=== PATIENT | female | born 1970 | race Caucasian/White ===

== ENCOUNTER 2025-01-19 07:18 | Emergency (ER) | payer MEDICAID, SELFPAY ==
[2025-01-19 07:19] VITALS: BP 144/72; PULSE 76; RESP 16; TEMP 36.6; O2SAT 100; BMI 43.2
--- NOTE | 2025-01-19 08:48 | EDS_ITS ---
HPI History of Present Illness Chief Complaint: Upper Extremity Injury Narrative Narrative: Patient is a 54-year-old female with past medical history of depression, hypothyroidism who presents to the emergency department the chief complaint of right wrist pain. States that she had an injury about 6 weeks ago after she moved into a new house and noted that there were new sliding glass doors placed and she states that she had been trying to open them up and noted that she injured her wrist. She states that she followed with her PCP who ordered an x- ray and did not show acute findings. She states that yesterday she noted that she had a vein bubbled up around this area in her wrist below her thumb and was concerned that this was a blood clot. States that when she woke up this was gone and was concerned that it may have burst. Patient states that she has been trying to wrap her wrist and this has not helped. States that she has been also more anxious than normal as she recently lost her mother. Patient denies any history of blood clots. [facility] Medical History delivery delivered Hysterectomy planned Depression Hypothyroidism Allergy/AdvReac Type Severity Reaction Status Date / Time No Known Allergies Allergy Verified 01/19/25 07:19 Surgical History Total knee replacement status Social History Smoking Status: Never smoker ROS ROS ED ROS Narrative Constitutional: Denies fevers, chills Neurological: Denies any numbness, weakness, tingling Musculoskeletal: Complains of right wrist pain as noted above Skin: Denies any rashes or lesions EXAM Physical Exam Narrative Exam Narrative: General: Patient lying in bed rest comfortably did not appear to be in acute distress Head: Atraumatic, normocephalic Eyes: PERRL bilaterally, EOMI black no conjunctival injection noted Neck: Soft, supple, trachea midline Cardiovascular: Regular rate and rhythm Musculoskeletal: Positive Sima's test on the right Extremities: +5/5 strength noted in the bilateral upper and lower extremities, radial pulse +2/4 in the bilateral extremities, no pedal edema no exam Neurological: Patient following commands and that she was at [facility] year is 2025. Sensation gross intact in the median, ulnar and radial nerve distribution bilaterally Skin: Warm, dry, intact no rashes or lesions noted Const Vital Signs: 01/19/25 07:19 Temperature 97.9 F Temperature Source Temporal Pulse Rate 76 Respiratory Rate 16 Blood Pressure 144/72 H Blood Pressure Mean 96 Pulse Ox 100 Oxygen Delivery Method Room Air MDM MDM MDM Narrative Medical decision making narrative: Patient is a 54-year-old female who presented to the emergency department the chief complaint of right wrist pain. On the differential diagnose includes but not limited to to de Quervain tenosynovitis, wrist sprain. I discussed with her that there is low risk that she has a blood clot in this area as she has no history and her pain is reproducible with Sima test. Advised her that we will place her in thumb spica splint and she should use NSAIDs for pain control. She was encouraged that this should improve over the next week or so. She was advised to follow-up with orthopedic team in the outpatient setting which she was referred to. She was also advised to follow-up with her primary care physician in the outpatient setting. She is agreeable this plan all question concerns answered she was discharged home in stable condition Discharge Plan Triage Chief Complaint: Upper Extremity Injury ED Provider: Levy Allen Dx/Rx/DC Orders Clinical Impression: De Quervain's disease (tenosynovitis) Primary Care Provider: Shirley Keen Referrals: Shirley Keen, [employer] [Primary Care Provider] - Wellington Fuentes MD [Med Staff - Active Staff] - Activity Restrictions/Additional Instructions: Wear thumb spica splint as discussed you can remove this for showering. You should use ice or heat in this area as well whichever makes this feel better. Take NSAIDs for pain control such as ibuprofen, Aleve, Advil etc. max dose of ibuprofen and 24 hours is 3200 mg. Follow-up with orthopedic team the outpatient setting as well as your primary care physician return with worsening symptoms or any other concerns Print Language: Welsh Disposition Disposition: Home, Self Care
--- OUTSIDE RECORDS SUMMARY | 2025-01-20 03:45 | XMS RPT_ITS | CCD ---
Author Organization [facility] Care Team Providers Care Wreath Inspector Name Role Phone MERCEDES ROSALES Unavailable Unavail able MERCEDES ROSALES Unavailable Unavail able CARISSIMI, NICHOLAS Primary Care Unavailable SPIRTOSMIRIAM Referring Unavailable CARISSIMI, NICHOLAS Primary Care Unavailable SPIRTOSMIRIAM Referring Unavailable CARISSIMI, NICHOLAS Primary Care Unavailable SPIRTOSMIRIAM M Referring Unavailable SPIRTOSMIRIAM Referring Unavailable CARISSIMI, NICHOLAS Primary Care Unavailable CARISSIMI, NICHOLAS Primary Care Unavailable SPIRTOSMIRIAM Referring Unavailable SPIRTOSMIRIAM Referring Unavailable CARISSIMI, NICHOLAS Primary Care Unavailable CARISSIMI, NICHOLAS Primary Care Unavailable SPIRTOSMIRIAM M Referring Unavailable CARISSIMI, NICHOLAS Primary Care Unavailable SPIRTOSMIRIAM M Referring Unavailable SPIRTOSMIRIAM M Referring Unavailable CARISSIMI, NICHOLAS Primary Care Unavailable CARISSIMI, NICHOLAS Primary Care Unavailable SPIRTOS, MIRIAM M Referring Unavailable SPIRTOSMIRIAM M Referring Unavailable CARISSIMI, NICHOLAS Primary Care Unavailable CARISSIMI, NICHOLAS Primary Care Unavailable SPIRTOSMIRIAM M Referring Unavailable CARISSIMI, NICHOLAS Primary Care Unavailable SPIRTOSMIRIAM M Referring Unavailable CARISSIMI, NICHOLAS Primary Care Unavailable SPIRTOSMIRIAM M Referring Unavailable CARISSIMI, NICHOLAS Primary Care Unavailable SPIRTOSMIRIAM M Referring Unavailable CARISSIMI, NICHOLAS Primary Care Unavailable SPIRTOS, MIRIAM M Referring Unavailable CARISSIMI, NICHOLAS Primary Care Unavailable SPIRTOS, MIRIAM M Referring Unavailable CARISSIMI, NICHOLAS Primary Care Unavailable SPIRTOSMIRIAM Referring Unavailable CARISSIMI, NICHOLAS Primary Care Unavailable SPIRTOSMIRIAM Referring Unavailable CARISSIMI, NICHOLAS Primary Care Unavailable SPIRTOS, MIRIAM M Referring Unavailable CARISSIMI, NICHOLAS Primary Care Unavailable SPIRTOS, MIRIAM M Referring Unavailable SPIRTOS, MIRIAM M Referring Unavailable CARISSIMI, NICHOLAS Primary Care Unavailable CARISSIMI, NICHOLAS Primary Care Unavailable CARISSIMI, NICHOLAS Primary Care Unavailable SPIRTOS, MIRIAM M Referring Unavailable CARISSIMI, NICHOLAS Primary Care Unavailable CARISSIMI, NICHOLAS Primary Care Unavailable SPIRTOS, MIRIAM M Referring Unavailable CARISSIMI, NICHOLAS Primary Care Unavailable SPIRTOS, MIRIAM M Referring Unavailable CARISSIMI, NICHOLAS Primary Care Unavailable MARY HERRERA Attending Unavailable STEPHAN ALMANZAR Attending Unavailable [facility], PHYSICIAN Attending Unavailable Swihart ANKIT, Ck Primary Care Provider EVELYN HERNANDEZ Attending Unavailable EVELYN HERNANDEZ Referring Unavailable SWIHART, CK L Primary Care Unavailable Swihart LOCKER ROOM CLERK-CLOTHING DESIGNER, Ck L Primary Care Provider SWIHART, CK L Referring Unavailable SWIHART, CK L Primary Care Unavailable SWIHART, CK L Referring Unavailable SWIHART, CK L Primary Care Unavailable SWIHART, CK L Referring Unavailable SWIHART, CK L Primary Care Unavailable SWIHART, CK L Referring Unavailable SWIHART, CK L Primary Care Unavailable SWIHART, CK L Referring Unavailable SWIHART, CK L Primary Care Unavailable SWIHART, CK L Referring Unavailable SWIHART, CK L Primary Care Unavailable González HAMMOND, Kristi Cosme Unavailable Unavailab le SYSTEM, PROVIDER NOT IN Referring Unavaila ble SWIHART, CK Primary Care Unavailable SYSTEM, PROVIDER NOT IN Attending Unavaila ble SYSTEM, PROVIDER NOT IN Referring Unavaila ble SYSTEM, PROVIDER NOT IN Attending Unavaila ble SWIHART, CK Primary Care Unavailable SYSTEM, PROVIDER NOT IN Referring Unavaila ble SYSTEM, PROVIDER NOT IN Attending Unavaila ble SWIHART, CK Primary Care Unavailable SYSTEM, PROVIDER NOT IN Attending Unavaila ble SWIHART, CK Primary Care Unavailable SYSTEM, PROVIDER NOT IN Referring Unavaila ble SWIHART, CK Primary Care Unavailable NANCY FLEMING Attending Unavailab le KRISTOPHERNANCY Referring Unavailab le SWIHART, CK Primary Care Unavailable SWIHART, CK Referring Unavailable PHYSICIANS, [facility] Attending Unavailable SWIHART, CK Primary Care Unavailable KRISTOPHER, NANCY CARLIN Attending Unavailab le KRISTOPHER, NANCY CARLIN Referring Unavailab le SWIHART, CK Primary Care Unavailable KRISTOPHER, NANCY CARLIN Attending Unavailab le KRISTOPHER, NANCY CARLIN Referring Unavailab le BEN, MOLLY SUE Attending Unavail able SWIHART, CK Primary Care Unavailable BEN, MOLLY SUE Admitting Unavail able SWIHART, CK ADRI Primary Care Unavailable ANGUS CHARLES Attending Unavailab le SWIHART, CK ADRI Primary Care Unavailable VONNIE FLORES Attending Unavailable KRISTOPHER, NANCY CARLIN Attending Unavailab le SWIHART, CK RUSH Referring Unavailable SWIHART, CK ADRI Primary Care Unavailable VONNIE FLORES Attending Unavailable SWIHART, CKWADE RUSH Primary Care Unavailable SWIHART, CK ADRI Primary Care Unavailable VONNIE FLORES Attending Unavailable SWIHART, CK ADRI Primary Care Unavailable VONNIE FLORES Attending Unavailable OBINNA NELSON Attending Unavailab le SWIHART, CK ADRI Primary Care Unavailable SWIHART, CK ADRI Referring Unavailable VONNIE FLORES Attending Unavailable SWIHART, CK ADRI Primary Care Unavailable SWIHART, CK ADRI Referring Unavailable SWIHART, CK ADRI Referring Unavailable SWIHART, CK RUSH Attending Unavailable SWIHART, CK ADRI Primary Care Unavailable Allergies Allergy Classification Reported Allergen(s) Allergy Type Date of Onset Reaction(s) Facility (12 sources) diclofenac; Translations: [DICLOFENAC] Drug Allergy 7 Other (See Comments) [facility] Other [place] Repository (10 sources) Diclofenac; Translations: [DICLOFENAC SODIUM] Drug Allergy 4 [facility] 3 Repository Medications Current Medications Medication Drug Class(es) Dates Sig (Normalized) Sig (Original) bisacodyl 5 mg delayed release oral tablet (1 source) Stimulant Laxative Start: 12-29-2023 bisacodyL (DULCOLAX) 5 mg EC tablet Take 4 tablets 8PM the evening before your colonoscopy . 4 tablet 0 12/29/2023 Active 24 hr buPROPion hydrochloride 150 mg extended release oral tablet (14 sources) Aminoketone Start: 01-09-2024 End: 01-08-2025 take 1 tablet by mouth once daily buPROPion (WELLBUTRIN XL) 150 MG 24 hr tablet Indications: Anxiety Take 1 (one) tablet (150 mg total) by mouth daily . 90 tablet 03/03/2024 Active Start: 12-24-2023 take 1 tablet by hermleinda th once daily in the morning buPROPion (WELLBUTRIN XL) 300 MG 24 hr tablet Take 1 (one) tablet (300 mg total) by mouth every morning . 30 tablet 1 12/24/2023 Active cariprazine 1.5 mg oral capsule (14 sources) Atypical Antipsychotic Start: 12-09-2023 take 1 capsule by mouth once daily cariprazine (Vraylar) 1.5 mg capsule Take 1 capsule (1.5 mg) by mouth once daily. 12/09/2023 Active cholecalciferol 0.05 mg oral capsule (14 sources) Vitamin D take 1 capsule by mouth once daily cholecalciferol, vitamin D3, (Vitamin D3) 50 mcg (2,000 unit) cap Take 1 (one) capsule by mouth daily . Active DULoxetine 30 mg delayed release oral capsule (6 sources) Serotonin and Norepinephrine Reuptake Inhibitor Start: 03-11-2024 take 1 capsule by mouth once daily DULoxetine (CYMBALTA) 30 MG capsule Take 1 (one) capsule (30 mg total) by mouth daily . 03/11/2024 Active levothyroxine sodium 0.125 mg oral tablet (14 sources) l-Thyroxine Start: 01-09-2024 take 1 tablet by mouth once daily levothyroxine (SYNTHROID, LEVOTHROID) 125 MCG tablet Indications: Hypothyroidism, unspecified type Take 1 (one) tablet (125 mcg total) by mouth daily . 90 tablet 06/07/2024 Active Start: 12-05-2023 take 1 tablet by hermelinda th once daily levothyroxine (SYNTHROID, LEVOTHROID) 125 MCG tablet Take 1 (one) tablet (125 mcg total) by mouth daily . 30 tablet 0 12/05/2023 Active lisdexamfetamine dimesylate 30 mg oral capsule (6 sources) Central Nervous System Stimulant lisdexamfetamine (VYVANSE) 30 MG capsule Take 40 mg by mouth every morning Patient reports 40 mg QD . Active polyethylene glycol 3350 329109 mg / potassium chloride 2970 mg / sodium bicarbonate 6740 mg / sodium chloride 5860 mg / sodium sulfate 05944 mg powder for oral solution (1 source) Osmotic Laxative Start: End: polyethylene glycol (GoLYTELY) 236-22.74-6.74 -5.86 gram solution Take 4,000 mL by mouth once for 1 dose . 4000 mL 0 12/29/2023 12/29/2023 Active topiramate 25 mg oral tablet (14 sources) Start: take 2 tablets by mouth once daily topiramate (TOPAMAX) 25 MG tablet Take 2 (two) tablets (50 mg total) by mouth daily . 06/05/2024 Active Start: 12-24-2023 take 1 tablet by hermelinda th twice daily topiramate (TOPAMAX) 100 MG tablet Take 1 (one) tablet (100 mg total) by mouth 2 (two) times a day . 60 tablet 1 12/24/2023 Active take 1 tablet by hermelinda th once daily topiramate (Topamax) 50 mg tablet Take 1 tablet (50 mg) by mouth once daily. Active UNABLE TO FIND (7 sources) take 3 capsules by m outh once daily UNABLE TO FIND Take 3 capsules by mouth daily Med Name: Intestinal Formula #1 . Active take 3 capsules by mouth once da eugenia UNABLE TO FIND Take 3 capsules by mouth daily Med Name: Intestinal Formula #1 . 0 Active Completed/Discontinued Medications Medication Drug Class(es) Dates Sig (Normalized) Sig (Original) nystatin [id number] unt/ml topical cream (1 source) Polyene Antifungal Start: 12-05-2023 End: 12-29-2023 nystatin (MYCOSTATIN) cream Indications: Candidiasis of breast Apply topically 2 (two) times a day . 30 g 0 12/05/2023 12/29/2023 Discontinued (Patient's Request) phentermine hydrochloride 37.5 mg oral tablet (1 source) Sympathomimetic Amine Anorectic Start: 09-12-2023 End: 12-29-2023 take 1 tablet by mouth once daily phentermine (ADIPEX-P) 37.5 mg tablet Take 1 (one) tablet (37.5 mg total) by mouth daily . 0 09/12/2023 12/29/2023 Discontinued (Patient's Request) Problems Active Problems Problem Classification Problem Date Documented Date Episodic/Chronic Abdominal pain (1 source) Pelvic and perineal pain; Translations: [Pelvic and perineal pain] Onset: 03-17-2018 Other connective tissue disease (2 sources) Pain in right forearm; Translations: [Pain in right forearm] Onset: 12-21-2024 Episodic Other ear and sense organ disorders (3 sources) Asymmetrical sensorineural hearing loss; Translations: [Sensorineural hearing loss, bilateral] 06-18-2024 Chronic Other ear and sense organ disorders (2 sources) Sensorineural hearing loss, bilateral; Translations: [Sensorineural hearing loss, bilateral] Onset: 06-18-2024 Chronic Residual codes; unclassified (2 sources) Other hypersomnia; Translations: [Other hypersomnia] Onset: 01-30-2024 Chronic Residual codes; unclassified (2 sources) Hypersomnia, unspecified; Translations: [Hypersomnia, unspecified] Onset: 01-30-2024 Chronic Residual codes; unclassified (1 source) Hypersomnia; Translations: [Hypersomnia, unspecified] 01-30-2024 Chronic Residual codes; unclassified (1 source) Daytime somnolence; Translations: [Other hypersomnia] 01-30-2024 Chronic Thyroid disorders (7 sources) Hypothyroidism; Translations: [Hypothyroidism, unspecified] Onset: 11-21-2023 11-21-2023 Chronic Unclassified (2 sources) New Patient Onset: 04-27-2024 Past or Other Problems Problem Classification Problem Date Documented Da te Episodic/Chronic Nonmalignant breast conditions (17 sources) Lump in lower inner quadrant of right breast; Translations: [Unspecified lump in the right breast, lower inner quadrant] Onset: 07-02-2024 07-02-2024 Episodic Other ear and sense organ disorders (2 sources) Tinnitus, bilateral; Translations: [Tinnitus, bilateral] Onset: 04-16-2024 Episodic Other gastrointestinal disorders (8 sources) Chronic constipation; Translations: [Other constipation] Onset: 12-29-2023 12-29-2023 Episodic Other gastrointestinal disorders (4 sources) Other constipation; Translations: [Other constipation] Onset: 12-29-2023 Episodic Other screening for suspected conditions (not mental disorders or infectious disease) (13 sources) Patient encounter status; Translations: [Encounter for screening for malignant neoplasm of colon] Onset: 12-29-2023 12-29-2023 Episodic Residual codes; unclassified (8 sources) Family history of cancer of colon; Translations: [Family history of malignant neoplasm of digestive organs] Onset: 12-29-2023 12-29-2023 Episodic Residual codes; unclassified (4 sources) Family history of malignant neoplasm of digestive organs; Translations: [Family history of malignant neoplasm of digestive organs] Onset: 12-29-2023 Episodic Unclassified (1 source) SCREENING Onset: 12-23-2022 Results Test Name Value Interpretation Reference Range Facility XR FOREARM RIGHT 2 VIEWSon 0 12-21-2024 XR FOREARM RIGHT 2 VIEWS EXAMINATION: XR FOREARM RIGHT 2 VIEWS 12/21/2024 11:29 AM HISTORY: ORDERING SYSTEM PROVIDED HISTORY: Right arm pain, TECHNOLOGIST PROVIDED HISTORY: Illness/Other Reason for Exam: Pain in radial aspect of the arm and wrist after opening a window 2 weeks ago has continued pain and discomfort Cancer History: N Surgery, Radiation History: N Encounter Type: Initial Additional Signs and Symptoms: NA ORDERING SYSTEM PROVIDED DIAGNOSIS CODES: M79.631 Right forearm pain COMPARISON: None. FINDINGS: Two views of the right forearm were obtained. No acute fracture or malalignment. Joint spaces are maintained. The cortical surface smooth in contour. Soft tissues are unremarkable. IMPRESSION: No acute abnormality in the right forearm. SLM/lab Workstation ID: [id number] Dictated by: MARY CASH on FriDec 23, 2024 9:30:31 AM EDT Transcribed by: NANCY ACKERMAN on FriDec 23, 2024 9:30:31 AM EDT Finalized by: MARY CASH on FriDec 23, 2024 11:06:03 AM EDT [facility] Comment on above: Order Comment: Injur y/Trauma or Illness?:Illness/Other How long have you had these symptoms (acute/chronic)?:Acute Reason for exam?:pain in radial aspect of the arm and wrist after opening a window 2 weeks ago has continued pain and discomfort History of cancer?:n Surgeries, chemotherapy, or radiation?:n Type of Exam?:Initial Additional signs and symptoms?:na MM FOLLOW UP POST CLIP PLACE Judith 07-21-2024 MM FOLLOW UP POST CLIP PLACEMENT EXAMINATION: US BREAST BIOPSY RIGHT; US AXILLA ONLY RIGHT (BREAST RELATED); MM FOLLOW UP POST CLIP PLACEMENT INDICATION: Dx: N63.41 (Subareolar mass of right breast) 54-year-old female presents for ultrasound-guided biopsy of right breast findings. COMPARISON: Recent mammogram June 2024. Prior mammograms February 2024, 2022, 2017, 2016, and 2015. TECHNIQUE AND FINDINGS: Review of prior mammograms demonstrates long-term mammographic stability of the palpable mass in the right breast 6 o'clock axis retroareolar region favoring benign etiology. Ultrasound of the right axilla was performed. No evidence of right axillary lymphadenopathy. The mass in the right breast 6 o'clock axis retroareolar was identified for biopsy measuring 2.2 x 1.6 x 2.4 cm. The mammographic findings were discussed with the patient who would like to proceed for tissue confirmation. Following the explanation of the risks, benefits and alternatives of the procedure to the patient, informed consent was obtained. Time out was performed. The patient was placed on the ultrasound table and the lesion of concern in the right breast retroareolar region at 6 o'clock was redemonstrated and an appropriate approach selected. The area was prepped and draped in the usual sterile fashion. Under sterile technique, the area was anesthetized and a small incision was made in the skin. Under ultrasound guidance a 14 gauge biopsy needle was introduced and advanced to the target lesion. Then, 3 cores were obtained under ultrasound guidance with confirmation of accurate targeting showing the biopsy needle through the lesion. The biopsy needle was retrieved and a T3 biopsy marker was placed at the biopsy site. Compression was applied to the area and Steri-strips used for the skin incision. No complications occurred. Postprocedure mammogram for marker placement evaluation shows a T3 hydromark shaped biopsy marker at the biopsy bed within the mass. IMPRESSION: 1. Technically successful ultrasound guided core needle biopsy of the right breast. Awaiting pathology results. 2. No right axillary lymphadenopathy. An addendum will be placed when the pathology results are available. The patient will follow-up with her physician with the results. Post-Procedure Mammogram for Marker Placement OVERALL ASSESSMENT - POST-PROCEDURE MAMMOGRAM FOR MARKER PLACEMENT Workstation ID: [id number] Addended: FriJul 23, 2024 3:42 PM by Elio Lopez MD ADDENDUM: Pathology: A. Breast, Right, 6 o'clock, ultrasound-guided biopsy: Breast parenchyma with stromal hyalinization. See comment. No evidence of malignancy. The pathology is benign and concordant with breast imaging findings. There is long-term mammographic stability of this mass compared to prior mammograms. Workstation ID: [id number] Dictated by: ELIO LOPEZ on FriJul 21, 2024 2:15:57 PM EST Transcribed by: ELIO LOPEZ on FriJul 21, 2024 2:15:57 PM EST Finalized by: ELIO LOPEZ on FriJul 21, 2024 2:15:57 PM EST Normal [facility] TISSUE EXAMon 07-21-2024 TISSUE EXAM Surgical Pathology R eport Case: [id number] Authorizing Provider: Nancy Fleming MD Collected: 07/21/2024 11:17 AM Ordering Location: [facility] Received: 07/21/2024 11:55 AM Ultrasound Pathologist: Rosie Bravo MD Specimen: Breast, Right, Right breast biopsy retroareolar 6:00; 2.0 x 2.4 x 1.7 cm; birads 4 A. Breast, Right, 6 o'clock, ultrasound-guided biopsy: Breast parenchyma with stromal hyalinization. See comment. No evidence of malignancy. A [place] red stain shows no evidence of amyloid deposition. N63.41 - Subareolar mass of right breast [ICD-10-CM] R92.8 - Abnormal mammogram [ICD-10-CM], Right breast biopsy retroareolar 6:00; 2.0 x 2.4 x 1.7 cm; birads 4 A. Received in formalin, designated breast, right-right breast biopsy retroareolar 6:00; 2.0 x 2.4 x 1.7 cm, are 4 cores of tissue measuring 1 x 0.4 x 0.2 cm in aggregate. Totally submitted in cassette. Specimen collection time: 11:17 am, 07/21/2024 Time placed in 10% neutral buffered formalin: 11:17 am, 07/21/2024 Time removed from formalin: 09:50 pm (long run), 07/21/2024 JK/IT/LM Gross examination performed at: [facility] - [address] [place] [address] Microscopic examination is performed. Normal [facility] Comment on above: Performed By: #### [id number] #### LAB [address] [place] [address] Adriano Ocampo M.D. [id number] US AXILLA ONLY RIGHT (BREAST RELATED)on 07-21-2024 US AXILLA ONLY RIGHT (BREAST RELATED) EXAMINATION: US BREAST BIOPSY RIGHT; US AXILLA ONLY RIGHT (BREAST RELATED); MM FOLLOW UP POST CLIP PLACEMENT INDICATION: Dx: N63.41 (Subareolar mass of right breast) 54-year-old female presents for ultrasound-guided biopsy of right breast findings. COMPARISON: Recent mammogram June 2024. Prior mammograms February 2024, 2022, 2017, 2016, and 2015. TECHNIQUE AND FINDINGS: Review of prior mammograms demonstrates long-term mammographic stability of the palpable mass in the right breast 6 o'clock axis retroareolar region favoring benign etiology. Ultrasound of the right axilla was performed. No evidence of right axillary lymphadenopathy. The mass in the right breast 6 o'clock axis retroareolar was identified for biopsy measuring 2.2 x 1.6 x 2.4 cm. The mammographic findings were discussed with the patient who would like to proceed for tissue confirmation. Following the explanation of the risks, benefits and alternatives of the procedure to the patient, informed consent was obtained. Time out was performed. The patient was placed on the ultrasound table and the lesion of concern in the right breast retroareolar region at 6 o'clock was redemonstrated and an appropriate approach selected. The area was prepped and draped in the usual sterile fashion. Under sterile technique, the area was anesthetized and a small incision was made in the skin. Under ultrasound guidance a 14 gauge biopsy needle was introduced and advanced to the target lesion. Then, 3 cores were obtained under ultrasound guidance with confirmation of accurate targeting showing the biopsy needle through the lesion. The biopsy needle was retrieved and a T3 biopsy marker was placed at the biopsy site. Compression was applied to the area and Steri-strips used for the skin incision. No complications occurred. Postprocedure mammogram for marker placement evaluation shows a T3 hydromark shaped biopsy marker at the biopsy bed within the mass. IMPRESSION: 1. Technically successful ultrasound guided core needle biopsy of the right breast. Awaiting pathology results. 2. No right axillary lymphadenopathy. An addendum will be placed when the pathology results are available. The patient will follow-up with her physician with the results. Post-Procedure Mammogram for Marker Placement OVERALL ASSESSMENT - POST-PROCEDURE MAMMOGRAM FOR MARKER PLACEMENT Workstation ID: [id number] Addended: FriJul 23, 2024 3:42 PM by Elio Lopez MD ADDENDUM: Pathology: A. Breast, Right, 6 o'clock, ultrasound-guided biopsy: Breast parenchyma with stromal hyalinization. See comment. No evidence of malignancy. The pathology is benign and concordant with breast imaging findings. There is long-term mammographic stability of this mass compared to prior mammograms. Workstation ID: [id number] Dictated by: ELIO LOPEZ on FriJul 21, 2024 2:15:57 PM EST Transcribed by: ELIO LOPEZ on FriJul 21, 2024 2:15:57 PM EST Finalized by: ELIO LOPEZ on FriJul 21, 2024 2:15:57 PM EST Normal [facility] Comment on above: Order Comment: Injur y/Trauma or Illness?:Illness/Other How long have you had these symptoms (acute/chronic)?:Acute Reason for exam?:Right breast biopsy and axillary survey Type of Exam?:Subsequent/Follow-up Additional signs and symptoms?:None US BREAST BIOPSY RIGHTon US BREAST BIOPSY RIGHT EXAMINATION: US BREAST BIOPSY RIGHT; US AXILLA ONLY RIGHT (BREAST RELATED); MM FOLLOW UP POST CLIP PLACEMENT INDICATION: Dx: N63.41 (Subareolar mass of right breast) 54-year-old female presents for ultrasound-guided biopsy of right breast findings. COMPARISON: Recent mammogram June 2024. Prior mammograms February 2024, 2022, 2017, 2016, and 2015. TECHNIQUE AND FINDINGS: Review of prior mammograms demonstrates long-term mammographic stability of the palpable mass in the right breast 6 o'clock axis retroareolar region favoring benign etiology. Ultrasound of the right axilla was performed. No evidence of right axillary lymphadenopathy. The mass in the right breast 6 o'clock axis retroareolar was identified for biopsy measuring 2.2 x 1.6 x 2.4 cm. The mammographic findings were discussed with the patient who would like to proceed for tissue confirmation. Following the explanation of the risks, benefits and alternatives of the procedure to the patient, informed consent was obtained. Time out was performed. The patient was placed on the ultrasound table and the lesion of concern in the right breast retroareolar region at 6 o'clock was redemonstrated and an appropriate approach selected. The area was prepped and draped in the usual sterile fashion. Under sterile technique, the area was anesthetized and a small incision was made in the skin. Under ultrasound guidance a 14 gauge biopsy needle was introduced and advanced to the target lesion. Then, 3 cores were obtained under ultrasound guidance with confirmation of accurate targeting showing the biopsy needle through the lesion. The biopsy needle was retrieved and a T3 biopsy marker was placed at the biopsy site. Compression was applied to the area and Steri-strips used for the skin incision. No complications occurred. Postprocedure mammogram for marker placement evaluation shows a T3 hydromark shaped biopsy marker at the biopsy bed within the mass. IMPRESSION: 1. Technically successful ultrasound guided core needle biopsy of the right breast. Awaiting pathology results. 2. No right axillary lymphadenopathy. An addendum will be placed when the pathology results are available. The patient will follow-up with her physician with the results. Post-Procedure Mammogram for Marker Placement OVERALL ASSESSMENT - POST-PROCEDURE MAMMOGRAM FOR MARKER PLACEMENT Workstation ID: [id number] Addended: FriJul 23, 2024 3:42 PM by Elio Lopez MD ADDENDUM: Pathology: A. Breast, Right, 6 o'clock, ultrasound-guided biopsy: Breast parenchyma with stromal hyalinization. See comment. No evidence of malignancy. The pathology is benign and concordant with breast imaging findings. There is long-term mammographic stability of this mass compared to prior mammograms. Workstation ID: [id number] Dictated by: ELIO LOPEZ on FriJul 21, 2024 2:15:57 PM EST Transcribed by: ELIO LOPEZ on FriJul 21, 2024 2:15:57 PM EST Finalized by: ELIO LOPEZ on FriJul 21, 2024 2:15:57 PM EST Normal [facility] Comment on above: Order Comment: Injur y/Trauma or Illness?:Illness/Other How long have you had these symptoms (acute/chronic)?:Acute Reason for exam?:Right breast biopsy Type of Exam?:Subsequent/Follow-up Additional signs and symptoms?:None BI TRANSFER OF OUTSIDE FILMS on 07-05-2024 BI TRANSFER OF OUTSIDE FILMS Outside images for comparison or treatment purposes, not interpreted by Radiologists. [facility] BI TRANSFER OF OUTSIDE FILMS Outside images for comparison or treatment purposes, not interpreted by Radiologists. [facility] BI TRANSFER OF OUTSIDE FILMS Outside images for comparison or treatment purposes, not interpreted by Radiologists. [facility] Study Interpretation of outs jeovany studyon 07-05-2024 Outside images for comparison or treatment purposes, not interpreted by Radiologists. IMAGING Outside images for comparison or treatment purposes, not interpreted by Radiologists. IMAGING Outside images for comparison or treatment purposes, not interpreted by Radiologists. IMAGING Outside images for comparison or treatment purposes, not interpreted by Radiologists. IMAGING BI MAMMO BILATERAL DIAGNOSTI C TOMOSYNTHESISon 07-02-2024 BI MAMMO BILATERAL DIAGNOSTIC TOMOSYNTHESIS Interpreted By: Carlin Betancourt, STUDY: BI MAMMO BILATERAL DIAGNOSTIC TOMOSYNTHESIS; BI US BREAST LIMITED RIGHT; 07/02/2024 8:25 am; 07/02/2024 8:30 am ACCESSION NUMBER(S): [id number]; [id number] ORDERING CLINICIAN: CK RAI INDICATION: ,N63.14 Unspecified lump in the right breast, lower inner quadrant COMPARISON: None. FINDINGS: MAMMOGRAPHY: 2D and tomosynthesis images were reviewed at 1 mm slice thickness. Density: The breasts are heterogeneously dense, which may obscure small masses. No suspicious microcalcifications. There is a mass in the right periareolar region just below the nipple, with well-defined margins, seen at tomosynthesis scans CC and MLO scan . The left breast is unremarkable. No prior studies are available. The skin thickness is normal. No axillary lymphadenopathy. ULTRASOUND: Targeted ultrasound was performed of the right breast by a registered apiculturist. A retroareolar mass lesion is seen at about the 6 o'clock position. This lesion is solid and heterogeneous, and measures 2 x 2.4 x 1.7 cm. The central area is hypoechoic. IMPRESSION: Suspicious solid heterogeneous mass lesion, at the 6 o'clock position of the retroareolar area of the right breast. BI-RADS CATEGORY: BI-RADS Category: 4 Suspicious. Recommendation: Surgical Consultation and Biopsy. Recommended Date: Immediate. Laterality: Right For any future breast imaging appointments, please call [phone] ([phone]). MACRO: None Signed by: Carlin Betancourt 07/02/2024 8:43 AM Dictation workstation: [id number] Abnormal [facility] BI US BREAST LIMITED RIGHTon 07-02-2024 BI US BREAST LIMITED RIGHT Interpreted By: Carlin Betancourt, STUDY: BI MAMMO BILATERAL DIAGNOSTIC TOMOSYNTHESIS; BI US BREAST LIMITED RIGHT; 07/02/2024 8:25 am; 07/02/2024 8:30 am ACCESSION NUMBER(S): [id number]; [id number] ORDERING CLINICIAN: CK RAI INDICATION: ,N63.14 Unspecified lump in the right breast, lower inner quadrant COMPARISON: None. FINDINGS: MAMMOGRAPHY: 2D and tomosynthesis images were reviewed at 1 mm slice thickness. Density: The breasts are heterogeneously dense, which may obscure small masses. No suspicious microcalcifications. There is a mass in the right periareolar region just below the nipple, with well-defined margins, seen at tomosynthesis scans CC and MLO scan . The left breast is unremarkable. No prior studies are available. The skin thickness is normal. No axillary lymphadenopathy. ULTRASOUND: Targeted ultrasound was performed of the right breast by a registered apiculturist. A retroareolar mass lesion is seen at about the 6 o'clock position. This lesion is solid and heterogeneous, and measures 2 x 2.4 x 1.7 cm. The central area is hypoechoic. IMPRESSION: Suspicious solid heterogeneous mass lesion, at the 6 o'clock position of the retroareolar area of the right breast. BI-RADS CATEGORY: BI-RADS Category: 4 Suspicious. Recommendation: Surgical Consultation and Biopsy. Recommended Date: Immediate. Laterality: Right For any future breast imaging appointments, please call [phone] ([phone]). MACRO: None Signed by: Carlin Betancourt 07/02/2024 8:43 AM Dictation workstation: [id number] [facility] DBT Breast - bilateral diagn osticon 07-02-2024 Radiology Study observation (narrative) [facility] Work Phone: No Panel InformationOrdered By: Carlin Betancourt on 07-02-2024 Interpretation and review of laboratory results Abnormal [facility] Work Phone: [facility] Work Phone: No Panel Informationon 07-02 Suspicious solid heterogeneous mass lesion, at the 6 o'clock position of the retroareolar area of the right breast. BI-RADS CATEGORY: BI-RADS Category: 4 Suspicious. Recommendation: Surgical Consultation and Biopsy. Recommended Date: Immediate. Laterality: Right For any future breast imaging appointments, please call [phone]). MACRO: None Signed by: Carlin Betancourt 07/02/2024 8:43 AM Dictation workstation: [id number] MMODAL Interpreted By: Carlin Sharif, STUDY: BI MAMMO BILATERAL DIAGNOSTIC TOMOSYNTHESIS; BI US BREAST LIMITED RIGHT; 07/02/2024 8:25 am; 07/02/2024 8:30 am ACCESSION NUMBER(S): [id number]; [id number] ORDERING CLINICIAN: CK RAI INDICATION: ,N63.14 Unspecified lump in the right breast, lower inner quadrant COMPARISON: None. FINDINGS: MAMMOGRAPHY: 2D and tomosynthesis images were reviewed at 1 mm slice thickness. Density: The breasts are heterogeneously dense, which may obscure small masses. No suspicious microcalcifications. There is a mass in the right periareolar region just below the nipple, with well-defined margins, seen at tomosynthesis scans CC and MLO scan . The left breast is unremarkable. No prior studies are available. The skin thickness is normal. No axillary lymphadenopathy. ULTRASOUND: Targeted ultrasound was performed of the right breast by a registered apiculturist. A retroareolar mass lesion is seen at about the 6 o'clock position. This lesion is solid and heterogeneous, and measures 2 x 2.4 x 1.7 cm. The central area is hypoechoic. MMODAL Carlin Betancourt MD - 07/02/2024 Interpreted By: Carlin Betancourt, STUDY: BI MAMMO BILATERAL DIAGNOSTIC TOMOSYNTHESIS; BI US BREAST LIMITED RIGHT; 07/02/2024 8:25 am; 07/02/2024 8:30 am ACCESSION NUMBER(S): [id number]; [id number] ORDERING CLINICIAN: CK RAI INDICATION: ,N63.14 Unspecified lump in the right breast, lower inner quadrant COMPARISON: None. FINDINGS: MAMMOGRAPHY: 2D and tomosynthesis images were reviewed at 1 mm slice thickness. Density: The breasts are heterogeneously dense, which may obscure small masses. No suspicious microcalcifications. There is a mass in the right periareolar region just below the nipple, with well-defined margins, seen at tomosynthesis scans CC and MLO scan . The left breast is unremarkable. No prior studies are available. The skin thickness is normal. No axillary lymphadenopathy. ULTRASOUND: Targeted ultrasound was performed of the right breast by a registered apiculturist. A retroareolar mass lesion is seen at about the 6 o'clock position. This lesion is solid and heterogeneous, and measures 2 x 2.4 x 1.7 cm. The central area is hypoechoic. IMPRESSION: Suspicious solid heterogeneous mass lesion, at the 6 o'clock position of the retroareolar area of the right breast. BI-RADS CATEGORY: BI-RADS Category: 4 Suspicious. Recommendation: Surgical Consultation and Biopsy. Recommended Date: Immediate. Laterality: Right For any future breast imaging appointments, please call [phone] ([phone]). MACRO: None Signed by: Carlin Betancourt 07/02/2024 8:43 AM Dictation workstation: [id number] [facility] Work Phone: US Breast - right limitedon 07-02-2024 Radiology Study observation (narrative) [facility] Work Phone: H AND Serjio 02-27-2024 H AND P 02/27/24 Reason for Consult: Colonoscopy due to colon constipation HPI: 53-year-old female with history of anxiety, arthritis, hypothyroidism referred for colonoscopy and chronic constipation. Patient has never had colonoscopy. Mother had history of ulcerative colitis and colon cancer. Denies any changes to her bowel habits or patterns. Has been dealing with constipation since infancy, currently takes an herbal supplement called Intestinal Formula #1 and occasionally uses Dulcolax which works well for her also. Has taken laxatives Metamucil and Citrucel in the past, Colace makes constipation worse. Denies blood in the stool or unintentional weight loss. Past Medical History: History - Past Medical History Past Medical History: Diagnosis Date Anxiety Arthritis Depression Hypothyroid Surgical History & Procedures: History - Past Surgical History Past Surgical History: Procedure Laterality Date SECTION, CLASSIC x2 HYSTERECTOMY (CERVIX REMAINS) SIGNATURE TOTAL KNEE REPLACEMENT Left TUBAL LIGATION Social History: Social History Socioeconomic History Marital status: Single Tobacco Use Smoking status: Former Years: 15 Types: Cigarettes Quit date: 2014 Years since quittin.4 Smokeless tobacco: Never Substance and Sexual Activity Alcohol use: Yes Comment: rare Drug use: Never History-Family Family History Problem Relation Age of Onset Colon polyps Mother Colon cancer Mother cervical to colon cancer Cervical cancer Mother Atrial fibrillation Mother Mental illness Mother Ulcerative colitis Mother Other (ulcerative colitis) Mother Hypertension Father Diabetes Father Lung cancer Father Kidney cancer Father Heart disease Maternal Grandfather Diabetes Paternal Grandfather Rectal cancer Neg Hx Current Medications: Current Medications Current Outpatient Medications Medication Sig Dispense Refill buPROPion (WELLBUTRIN XL) 300 MG 24 hr tablet Take 1 (one) tablet (300 mg total) by mouth every morning . 30 tablet 1 cariprazine (VRAYLAR) 1.5 mg capsule Take 1 (one) capsule (1.5 mg total) by mouth daily . 30 capsule 1 levothyroxine (SYNTHROID, LEVOTHROID) 125 MCG tablet Take 1 (one) tablet (125 mcg total) by mouth daily . 30 tablet 0 topiramate (TOPAMAX) 100 MG tablet Take 1 (one) tablet (100 mg total) by mouth 2 (two) times a day . (Patient taking differently: Take 1 (one) tablet (100 mg total) by mouth daily .) 60 tablet 1 bisacodyL (DULCOLAX) 5 mg EC tablet Take 4 tablets 8PM the evening before your colonoscopy . 4 tablet 0 cholecalciferol, vitamin D3, (Vitamin D3) 50 mcg (2,000 unit) cap Take by mouth . polyethylene glycol (GoLYTELY) 236-22.74-6.74 -5.86 gram solution Take 4,000 mL by mouth once for 1 dose . 4000 mL 0 UNABLE TO FIND Take 3 capsules by mouth daily Med Name: Intestinal Formula #1 . No current facility-administered medications for this visit. Review of Systems Constitutional: Negative for appetite change, fatigue, fever and unexpected weight change. HENT: Negative for mouth sores, trouble swallowing and voice change. Eyes: Negative for redness. Respiratory: Negative for cough, choking and shortness of breath. Cardiovascular: Negative for chest pain and palpitations. Gastrointestinal: Positive for abdominal distention and constipation. Negative for abdominal pain, blood in stool, diarrhea, nausea and vomiting. Endocrine: Negative. Genitourinary: Negative for difficulty urinating. Musculoskeletal: Negative for arthralgias and joint swelling. Skin: Negative for color change and pallor. Allergic/Immunologic: Negative. Neurological: Negative for dizziness, syncope and light-headedness. Hematological: Negative. Psychiatric/Behavioral: Negative. Physical Exam Constitutional: General: She is not in acute distress. HENT: Head: Normocephalic and atraumatic. Right Ear: External ear normal. Left Ear: External ear normal. Nose: Nose normal. Mouth/Throat: Mouth: Mucous membranes are moist. Pharynx: No posterior oropharyngeal erythema. Eyes: General: No scleral icterus. Pupils: Pupils are equal, round, and reactive to light. Cardiovascular: Rate and Rhythm: Normal rate and regular rhythm. Heart sounds: No murmur heard. No gallop. Pulmonary: Effort: Pulmonary effort is normal. No respiratory distress. Breath sounds: Normal breath sounds. No wheezing. Abdominal: General: Bowel sounds are normal. There is no distension. Palpations: Abdomen is soft. There is no mass. Tenderness: There is no abdominal tenderness. Musculoskeletal: General: No deformity. Normal range of motion. Cervical back: Normal range of motion and neck supple. Skin: General: Skin is warm and dry. Coloration: Skin is not jaundiced or pale. Neurological: General: No focal deficit present. Mental Status: She is alert and oriented to person, place, and time. Psychiatric: Mood and Affect: Mood (more content not included)... Normal [facility] MM SCREENING OTILIO BILATERALo n 02-23-2024 MM SCREENING OTILIO BILATERAL EXAMINATION: MM SCREENING OTILIO BILATERAL INDICATION: Annual screening exam. Dx: Z12.31 (Screening mammogram for breast cancer) ORDERING SYSTEM PROVIDED HISTORY: Screening mammogram for breast cancer, TECHNOLOGIST PROVIDED HISTORY: ORDERING SYSTEM PROVIDED DIAGNOSIS CODES: Z12.31 Screening mammogram for breast cancer COMPARISON: Mammograms 2022, 2017, 2016, and 2015. TECHNIQUE: Standard mammographic views, 2D and 3D. Computer-aided detection was utilized in the interpretation of this exam. FINDINGS: The breasts are heterogeneously dense, which may obscure small masses. Long-term stability of circumscribed mass in the right retroareolar region compatible with benign etiology. No suspicious masses, calcifications, skin thickening, or nipple retraction. No significant interval change. IMPRESSION: No mammographic evidence of malignancy. BIRADS: BIRADS - CATEGORY 2 Benign, no evidence of malignancy. Normal interval follow-up is recommended in 12 months. OVERALL ASSESSMENT - BENIGN A letter of notification will be sent to the patient regarding the results. [facility], along with the [employer], the [employer], and [facility], recommend annual screening mammograms for women age 40 and older. Workstation ID: [id number] Dictated by: ELIO LOPEZ on FriFeb 25, 2024 11:27:19 AM EDT Transcribed by: ELIO LOPEZ on FriFeb 25, 2024 11:27:19 AM EDT Finalized by: ELIO LOPEZ on FriFeb 25, 2024 11:27:19 AM EDT Normal [facility] SCREEN DIGITAL BREAST TOMOon 12-23-2022 SCREEN DIGITAL BREAST OT[place]IO [place] [id number] Name: EDWINRIKKIJAKE QuirozINÉS L Phys: MARY HERRERA M.D. : 70 Age: 52 Sex: F Acct: [id number] Loc: RAD MAMM Exam Date: 12/23/22 Status: REG CLI Radiology No.: Unit Number: [id number] Exam # Type/Exam [id number] MAMMO / SCREEN DIGITAL BREAST OTILIO #[id number] - SCREEN DIGITAL BREAST OTILIO BILATERAL DIGITAL SCREENING MAMMOGRAM 3D/2D WITH CAD: 12/23/2022 CLINICAL: Annual Screening. Comparison is made to exams dated: 05/05/2018 mammogram, 11/14/2016 mammogram, and 11/30/2015 mammogram - [facility]. Additional films were requested but not obtained. There are scattered fibroglandular elements in both breasts. Current study was also evaluated with a Computer Aided Detection (CAD) system. No significant masses, calcifications, or other findings are seen in either breast. There has been no significant interval change. IMPRESSION: NEGATIVE There is no mammographic evidence of malignancy. A 1 year return mammogram is recommended.(12/24/2023) The patient was notified of the results. Electronically signed by: Elliott Noyola M.D. [email or web address]:01/09/2023 13:04:58 Brain Surgeon(s): RT Vivek(R)(M), [facility] BI-RADS: 1 Negative REPORT SIGNATURE ON FILE Reported By: ELLIOTT NOYOLA M.D. << Signature on File>> Reported By: ELLIOTT NOYOLA M.D. Signed By: ELLIOTT NOYOLA M.D. Tests performed at: [address] [address] Normal [facility] ESTRADIOLon 12-05-2022 ESTRADIOL < 25.0 Normal [facility] Comment on above: Result Comment: This Estradiol assay ([facility]) may show falsely elevated results when measuring estradiol in patients who are taking Fulvestrant (Faslodex). Non- Female Ref Ranges Follicular Phase: 12.4-233 pg/mL Luteal Phase : 22.3-341 pg/mL Ovulatory Phase : 41.0-398 pg/mL Post-Menopausal : <5.00-138 pg/mL First Trimester: 154 to 3243 pg/mL Second Trimester: 1561 to 49079 pg/mL Third Trimester: 8525 to >70116 pg/mL Performed By: #### L 304.0195, L304.0185, L304.0170, L304.0180 #### [facility] [address] [place] [address] FOLATEon 12-05-2022 FOLATE 13.3 ng/mL Normal 4.8-24.2 [facility] Comment on above: Performed By: #### L 304.0195, L304.0185, L304.0170, L304.0180 #### [facility] - [facility]AT[facility] [address] [place] [address] FSHon 12-05-2022 FSH 72.24 mIU/mL [facility] Comment on above: Result Comment: Fema le Ref. Ranges Follicular Phase: 3.5 - 12.5 mIU/mL Ovulation Phase: 4.7 - 21.5 mIU/mL Luteal Phase : 1.7 - 7.7 mIU/mL Post-Menopause : 25.8-134.8 mIU/mL Performed By: #### L 304.0195, L304.0185, L304.0170, L304.0180 #### [facility] - [facility] [address] [place] [address] LH 12-05-2022 LH 57.17 mIU/mL [facility] Comment on above: Result Comment: Fema le Ref. Ranges Follicular Phase : 2.4 - 12.6 mIU/mL Ovulatory Peak : 14.0 - 95.6 mIU/mL Luteal Phase : 1.0 - 11.4 mIU/mL Post-Menopausal : 7.7 - 58.5 mIU/mL Performed By: #### L 304.0195, L304.0185, L304.0170, L304.0180 #### [facility] - [facility] [address] [place] [address] PROGESTon 12-05-2022 PROGEST 0.31 ng/mL [facility] Comment on above: Result Comment: Non- Female Ref Ranges Follicular Phase: 0.06-0.893 ng/mL Ovulation Phase: 0.12-12.0 ng/mL Luteal Phase : 1.8-23.9 ng/mL Post-Menopausal : <0.05-0.13 ng/mL Female Ref Ranges 1st Trimester: 11.0-44.3 ng/mL 2nd Trimester: 25.4-83.3 ng/mL 3rd Trimester: 58.7-214 ng/mL Performed By: #### L 304.0195, L304.0185, L304.0170, L304.0180 #### [facility] - [facility] [address] [place] [address]751 VIT. B12on 12-05-2022 Cobalamin (Vitamin B12) [Mass/Vol] 1422 pg/mL High 232-1245 [facility] Comment on above: Performed By: #### L 304.0195, L304.0185, L304.0170, L304.0180 #### [facility] - [facility] [address] [place] [address]50 VITAMIN Don 12-05-2022 VITAMIN D 42.6 ng/mL Normal 30-100 [facility] Comment on above: Performed By: #### L 304.0195, L304.0185, L304.0170, L304.0180 #### [facility] - [facility] [address] [place] [address] 732[address] [id number] 11-16-2022 HbA1c (Bld) [Mass fraction] 5.8 % Normal 4.3-6.1 [facility] Comment on above: Result Comment: Estimated Average Glucose: HgbA1C % mg/dL 4.0 68 5.0 97 6.0 125 7.0 154 8.0 183 9.0 212 10.0 240 Source: [place] [employer] web site, 2017. Performed By: #### L 200.2000 #### [facility] - [facility] [address] [place] [address] 78086 CBCon 11-15-2022 BASO# 0.00 x10(3) Normal 0.00-0.10 [facility] Comment on above: Performed By: #### L 304.0195, L304.0185, L304.0170, L304.0180 #### [facility] [address] [place] [address] 03792 Basophils/100 WBC (Bld) 0.6 % Normal 0.0-1.0 [facility] Comment on above: Performed By: #### L 304.0195, L304.0185, L304.0170, L304.0180 #### [facility] [address] [place] [address] 16736 EOS# 0.10 x10(3) Normal 0.00-0.54 [facility] Comment on above: Performed By: #### L 304.0195, L304.0185, L304.0170, L304.0180 #### [facility] [address] [place] [address] 94854 Eosinophils/100 WBC (Bld) 2.1 % Normal 0.5-4.9 [facility] Comment on above: Performed By: #### L 304.0195, L304.0185, L304.0170, L304.0180 #### [facility] [address] [place] [address] 45847 Erythrocyte distribution width (RBC) [Ratio] 13.8 % Normal 12.5-15.7 [facility] Comment on above: Performed By: #### L 304.0195, L304.0185, L304.0170, L304.0180 #### [facility] [address] [place] [address] 90693 Hematocrit (Bld) [Volume fraction] 41.3 % Normal 36.0-48.0 [facility] Comment on above: Performed By: #### L 304.0195, L304.0185, L304.0170, L304.0180 #### [facility] [address] [place] [address] 61381 Hemoglobin (Bld) [Mass/Vol] 13.5 g/dL Normal 12.0-16.0 [facility] Comment on above: Performed By: #### L 304.0195, L304.0185, L304.0170, L304.0180 #### [facility] [address] [place] [address] 05990 LYMPH# 1.70 x10(3) Normal 1.00-3.50 [facility] Comment on above: Performed By: #### L 304.0195, L304.0185, L304.0170, L304.0180 #### [facility] [address] [place] [address] 13634 Lymphocytes/100 WBC (Bld) 29.1 % Normal 16.0-48.0 [facility] Comment on above: Performed By: #### L 304.0195, L304.0185, L304.0170, L304.0180 #### [facility] [address] [place] [address] 98938 MCH (RBC) [Entitic mass] 28.3 pg Low 28.5-32.9 [facility] Comment on above: Performed By: #### L 304.0195, L304.0185, L304.0170, L304.0180 #### [facility] [address] [place] [address] 00213 MCHC (RBC) [Mass/Vol] 32.7 g/dL Low 33.0-36.0 [facility] Comment on above: Performed By: #### L 304.0195, L304.0185, L304.0170, L304.0180 #### - LABORATORY [address] [place] [address] 32730 MCV (RBC) [Entitic vol] 86.6 fL Normal 80.0-99.0 [facility] Comment on above: Performed By: #### L 304.0195, L304.0185, L304.0170, L304.0180 #### [facility] [address] [place] [address] 18922 MONO# 0.40 x10(3) Normal 0.30-0.80 [facility] Comment on above: Performed By: #### L 304.0195, L304.0185, L304.0170, L304.0180 #### - LABORATORY [address] [place] [address] 23589 Monocytes/100 WBC (Bld) 6.4 % Normal 4.3-11.2 [facility] Comment on above: Performed By: #### L 304.0195, L304.0185, L304.0170, L304.0180 #### - LABORATORY [address] [place] [address] 79234 NEUT# 3.50 x10(3) Normal 1.40-6.50 [facility] Comment on above: Performed By: #### L 304.0195, L304.0185, L304.0170, L304.0180 #### [facility] [address] [place] [address] 49778 Neutrophils/100 WBC (Bld) 61.8 % Normal 45.0-73.0 [facility] Comment on above: Performed By: #### L 304.0195, L304.0185, L304.0170, L304.0180 #### [facility] [address] [place] [address] 72093 Platelet mean volume (Bld) [Entitic vol] 8.2 fL Normal 7.5-9.5 [facility] Comment on above: Performed By: #### L 304.0195, L304.0185, L304.0170, L304.0180 #### [facility] [facility] [address] [place] [address] 27491 PLT 309 X10(3) Normal 150-450 [facility] Comment on above: Performed By: #### L 304.0195, L304.0185, L304.0170, L304.0180 #### [facility] [address] [place] [address] 74174 RBC 4.77 x10(6) Normal 3.30-5.00 [facility] Comment on above: Performed By: #### L 304.0195, L304.0185, L304.0170, L304.0180 #### - LABORATORY [address] [place] [address] 89687 WBC 5.7 x10(3) Normal 4.5-10.0 [facility] Comment on above: Performed By: #### L 304.0195, L304.0185, L304.0170, L304.0180 #### - LABORATORY [address] [place] [address] 30145 CMPon 11-15-2022 A:G RATIO 1.74 Normal 1.1-2.5 [facility] Comment on above: Performed By: #### L 100.0040, L304.0162, L304.0140, L100.0005 #### - LABORATORY [address] [place] [address] 59166 Albumin [Mass/Vol] 4.7 g/dL Normal 3.5-5.2 [facility] Comment on above: Performed By: #### L 100.0040, L304.0162, L304.0140, L100.0005 #### - LABORATORY [address] [place] [address] 93081 ALK. PHOS 124 U/L High 35-105 [facility] Comment on above: Performed By: #### L 100.0040, L304.0162, L304.0140, L100.0005 #### - LABORATORY [address] [place] [address] 22782 ALT [Catalytic activity/Vol] 14 U/L Normal 5-33 [facility] Comment on above: Performed By: #### L 100.0040, L304.0162, L304.0140, L100.0005 #### ML - LABORATORY [address] [place] [address] 39732 Anion gap [Moles/Vol] 13.9 mmol/L Low 15-22 [facility] Comment on above: Performed By: #### L 100.0040, L304.0162, L304.0140, L100.0005 #### - LABORATORY [address] [place] [address] 29994 AST [Catalytic activity/Vol] 13 U/L Normal 5-32 [facility] Comment on above: Performed By: #### L 100.0040, L304.0162, L304.0140, L100.0005 #### - LABORATORY [address] [place] [address] 70919 Bilirubin [Mass/Vol] 0.3 mg/dL Normal 0.2-1.2 [facility] Comment on above: Performed By: #### L 100.0040, L304.0162, L304.0140, L100.0005 #### - LABORATORY [address] [place] [address] 21338 Calcium [Mass/Vol] 9.5 mg/dL Normal 8.6-10.0 [facility] Comment on above: Performed By: #### L 100.0040, L304.0162, L304.0140, L100.0005 #### - LABORATORY [address] [place] [address] 92467 Chloride [Moles/Vol] 102 mmol/L Normal 98-107 [facility] Comment on above: Performed By: #### L 100.0040, L304.0162, L304.0140, L100.0005 #### - LABORATORY [address] [place] [address] 63270 CO2 [Moles/Vol] 26 mmol/L Normal 22-29 [facility] Comment on above: Performed By: #### L 100.0040, L304.0162, L304.0140, L100.0005 #### - LABORATORY [address] [place] [address] 58326 Creatinine [Mass/Vol] 1.06 mg/dL High 0.50-0.90 [facility] Comment on above: Performed By: #### L 100.0040, L304.0162, L304.0140, L100.0005 #### - LABORATORY [address] [place] [address] 03907 eGFR if AFR TAMMY > 60 ml/min/1.73m2 Normal [facility] Comment on above: Result Comment: eGFR >= 60 Indicates normal kidney function. * eGFR IS AN ESTIMATE * (AFR TAMMY = ) (non-AFR AM = NON-) MDRD calculation used in the eGFR should not be used to dose medications. For further limitations of the eGFR please refer to the Physician Website or the National Kidney Disease Education Program website (www.nkdep.nih.gov). Performed By: #### L 100.0040, L304.0162, L304.0140, L100.0005 #### [facility] [address] [place] [address] 12493 eGFR nonAFR Tammy 54 Normal [facility] Comment on above: Performed By: #### L 100.0040, L304.0162, L304.0140, L100.0005 #### [facility] [address] [place] [address] 24994 Globulin (S) [Mass/Vol] 2.7 g/dL Normal 1.5-4.5 [facility] Comment on above: Performed By: #### L 100.0040, L304.0162, L304.0140, L100.0005 #### [facility] [address] [place] [address] 38517 Glucose [Mass/Vol] 91 mg/dL Normal 74-106 [facility] Comment on above: Performed By: #### L 100.0040, L304.0162, L304.0140, L100.0005 #### [facility] [address] [place] [address] 45898 Potassium [Moles/Vol] 3.9 mmol/L Normal 3.5-5.0 [facility] Comment on above: Performed By: #### L 100.0040, L304.0162, L304.0140, L100.0005 #### [facility] [address] [place] [address] 22761 Protein [Mass/Vol] 7.4 g/dL Normal 6.4-8.3 [facility] Comment on above: Performed By: #### L 100.0040, L304.0162, L304.0140, L100.0005 #### ML - LABORATORY [address] [place] [address] 06964 Sodium [Moles/Vol] 138 mmol/L Normal 135-145 [facility] Comment on above: Performed By: #### L 100.0040, L304.0162, L304.0140, L100.0005 #### ML - LABORATORY [address] [place] [address] 65481 Urea nitrogen [Mass/Vol] 16 mg/dL Normal 6-20 [facility] Comment on above: Performed By: #### L 100.0040, L304.0162, L304.0140, L100.0005 #### - LABORATORY [address] [place] [address] 56643 Free T4on 11-15-2022 Free T4 [Mass/Vol] 1.48 ng/dL Normal 0.93-1.7 [facility] Comment on above: Performed By: #### L 100.0040, L304.0162, L304.0140, L100.0005 #### ML - LABORATORY [address] [place] [address] 80338 LIPID PANELon 11-15-2022 Cholesterol [Mass/Vol] 180 mg/dL Normal 130-200 [facility] Comment on above: Performed By: #### L 100.0040, L304.0162, L304.0140, L100.0005 #### - LABORATORY [address] [place] [address] 94482 Cholesterol in HDL [Mass/Vol] 66 mg/dL Normal [facility] Comment on above: Result Comment: Meghan onal Cholesterol Education Program (NCEP) guidelines: <40 mg/dL: Low HDL-Cholesterol(major risk factor for CHD) > or = 60 mg/dL: High HDL-Cholesterol(negative risk factor for CHD) HDL-cholesterol is affected by a number of factors, e.g., smoking, exercise, hormones, sex, and age. 4th Generation Test; Results may be approximately 7% lower than previous values. Performed By: #### L 100.0040, L304.0162, L304.0140, L100.0005 #### [facility] - LABORATORY [address] [place] [address] 31726 Cholesterol in LDL [Mass/Vol] 93 mg/dL Normal [facility] Comment on above: Result Comment: LDL: OPTIMAL FOR PEOPLE AT VERY HIGH RISK <70 OPTIMAL <100 NEAR OPTIMAL 100-129 BORDERLINE HIGH 130-159 HIGH 160-189 VERY HIGH >=190 Source: 2009 NCEP ATP III, ADA Guidelines Reviewed: October, Performed By: #### L 100.0040, L304.0162, L304.0140, L100.0005 #### ML - LABORATORY [address] [place] [address] 58413 Cholesterol in VLDL [Mass/Vol] 21 mg/dL Normal 6-40 [facility] Comment on above: Performed By: #### L 100.0040, L304.0162, L304.0140, L100.0005 #### [facility] - LABORATORY [address] [place] [address] 09316 LDL/HDL RATIO 1.4 Normal [facility] Comment on above: Performed By: #### L 100.0040, L304.0162, L304.0140, L100.0005 #### [facility] - LABORATORY [address] [place] [address] 32427 Triglyceride [Mass/Vol] 103 mg/dL Normal [facility] Comment on above: Result Comment: TRIG : DESIRABLE: <150 mg/dL Performed By: #### L 100.0040, L304.0162, L304.0140, L100.0005 #### [facility] - LABORATORY [address] [place] [address] 97950 TSHon 11-15-2022 TSH 0.88 uIU/mL Normal 0.270-4.200 [facility] Comment on above: Performed By: #### L 100.0040, L304.0162, L304.0140, L100.0005 #### [facility] - LABORATORY [address] [place] [address] 05698 ANES Rema 04-09-2018 ANES POST HNO ID: [id number] thor: Lucius Holland: AnesthesiologyAuthor Type: AnesthesiologistType: Anesthesia PostOpFiled: 04/09/2018 12:13 PMNote Text:POST ANESTHESIA EVALUATION NOTESERVICE DATE: 04/09/2018SERVICE TIME: 12:13 PMDOB: 1970Vitals: 04/09/1809Temp: 37 ?C (98.6 ?F) 36.4 ?C (97.5 ?F) 37.2 ?C (99 ?F) 04/09/1810P: 149/85 153/87 133/68 165/71 04/09/1810Pulse: 60 (!) 56 67 68 04/09/1810Resp: 16 16 16 16 04/09/1810SpO2: 98% 100% 100% 100%Validated Vital Signs: YesPOST ANES STATUS: No apparent anesthetic complications. The patient isappropriately hydrated with stable respiratory and cardiovascular status.Patient has safe and adequate airway control. The patient has appropriatepain relief and no significant post operative nausea or vomiting. Thepatient has achieved baseline mental status.Further assessment by Anesthesia Service: NoneOther Remarks:SIGNATURE: Lucius Mondragon MD PATIENT NAME: Inés KauriDATE: April 09, 2018 : 12:13 PM PAGER/CONTACT #: [phone] [facility] ANES PREOPon 04-09-2018 ANES PREOP HNO ID: [id number] thor: Lucius Holland: AnesthesiologyAuthoberlin Type: AnesthesiologistType: Anesthesia PreOpFiled: 04/09/2018 7:05 AMNote Text: ANESTHESIOLOGY DAY OF SURGERY NOTESERVICE DATE: 04/09/2018SERVICE TIME: 7:05 AMDOB: 1970Procedure(s) (LRB):LAPAROSCOPIC HYSTERECTOMY TOTAL FOR UTERUS 250 G OR LESS W/REMOVAL TUBE(S)AND/OR OVARY(S) (Bilateral)CYSTOSCOPY (N/A)Surgeon(s):Mercedes Diehl RussellEstimated body mass index is 32.77 kg/m? as calculated from the following: Height as of this encounter: 160 cm (5' 3). Weight as of this encounter: 83.9 kg (185 lb).Most recent hematocrit and potassium results:Hematocrit 39.2 04/09/2018Potassium 3.5 04/03/2018ANES DOS/PREOP NOTE: Vitals: 447183BE: 130/78Pulse: 74Resp: 16Temp: 37 ?C (98.6 ?F)SpO2: 100%Weight: 83.9 kg (185 lb)Height: 160 cm (5' 3)ACTIVE PROBLEM LISTDysthymic DisorderINTRADERMAL NEVI(MELANOCYTIC): SHAHID SKIN FACE NECNeoplasm of Uncertain Behavior of SkinEPIDERMAL CYST///SEBACEOUS CYSTObesity, UnspecifiedTobacco Use DisorderPain in Joint, Lower LegAcquired HypothyroidismAbnormal Uterine Bleeding (Aub)Pelvic PainPAST MEDICAL HISTORYDiagnosis Date- Dysthymic disorder Depression (non-psychotic)- Premenstrual tension syndromes- Unspecified hypothyroidismPAST SURGICAL HISTORYProcedure Laterality Date- DELIVERY ONLY 1995 1999 , low cervical- INSERTION OF IUD 01/11/2014- IUD REMOVAL ([facility] MANA[employer] DEPT)_*FL 09/2017- LIGATE FALLOPIAN TUBE Tubal ligationFAMILY HISTORYProblem Relation Age of Onset- Hypertension Maternal Grandmother- Thyroid Mother- Psychiatry Mother depression- Hypertension Father- Diabetes Father- Cancer Father KIDNEY,lung- Thyroid Father- Heart Maternal Grandfather mi- Heart Paternal Grandmother pacemaker- Heart Paternal Grandfather miSocial History:Social HistorySubstance Use Topics- Smoking status: Former Smoker Packs/day: 1.00 Types: Cigarettes Quit date: 03/28/2015- Smokeless tobacco: Never Used- Alcohol use NoNo current facility-administered medications on file prior to encounter.Current Outpatient Prescriptions on File Prior to Encounter:buPROPion XL (WELLBUTRIN XL) 300 mg 24 hr tablet TAKE 1 TABLET BY MOUTHONCE DAILY. INDICATIONS: MAJOR DEPRESSIVE DISORDER, SMOKING CESSATIONlevothyroxine (SYNTHROID) 112 mcg tablet Take 1 tablet by mouth oncedaily. Take on empty stomach. For thyroid.topiramate (TOPAMAX) 50 mg tablet Take 1 tablet by mouth twice daily.FUROSEMIDE (LASIX ORAL) Take by mouth once daily. Takes every other dayCurrent Facility-Administered Medications:lidocaine 10 mg/mL (1 %) 1-2 mg injection (XYLOCAINE) 0.1-0.2 mLINTRADERMAL PRN Mercedes Neyhart McIntoshlactated ringers infusion 5-30 mL/hr INTRAVENOUS CONTINUOUS Mercedes NeyhartMcIntosh Last Rate: 30 mL/hr at 04/09/18 0704 30 mL/hr at 04/09/18 0704ceFAZolin iv piggyback 2 g in D5W (iso-osmotic) 100 mL (ANCEF) 2 gINTRAVENOUS Pre-Op Once Mercedes Neyhart McIntoshAllergies:ALLERGI ESAllergen Reactions- Voltaren [Diclofena*DOS EXAM: Adequate NPO status: YesAnesthetic risks, benefits, alternatives, personnel and consent discussed:YesPatient agrees to proceed: YesPrevious Anesthesia: No history of adverse event.Airway Assessment: MP 2; Neck ROM: Full ROM without neurologic symptoms;Airway Evaluation: No significant abnormalitiesSymptoms of Sleep Apnea: NoneDentition: Teeth intactAdditional Physical Exam:Lungs: Patient health status unchanged since recent history and physical.See history and physical for exam findings.Cardiac: Patient health status unchanged since recent history andphysical. See history and physical for exam findings.Additional Pertinent Findings: N/ABlood Products: Not anticipated for this procedure.Anesthetic Plan: General, Standard ASA MonitorsPain Management Plan: Parenteral or OralASA Class: 1Other Medical Problems: NoneI have interviewed and examined the patient. I have reviewed the medicalrecord and/or the pre-anesthesia evaluation, pertinent labs, and testresults.Significant changes in the patient's condition since the History andPhysical, not otherwise documented in primary service progress notes: NoThis contains updated information obtained within 48 hours ofSurgery/Procedure.SIGNA TURLeonid: Lucius Mondragon MD PATIENT NAME: Inés KauriDATE: April 09, 2018 : 7:05 AM CSN: [id number] Normal [facility] CBCon 04-09-2018 Erythrocyte distribution width Auto Ratio (RBC) 13.2 % Normal 11.5-15.0 [facility] Comment on above: Performed By: #### C BC ####[place] [address] Hematocrit Auto Volume Fraction (Bld) 39.2 % Normal 36.0-46.0 [facility] Comment on above: Performed By: #### C BC ####[place] [address] Hemoglobin mass conc (Bld) 12.4 g/dL Normal 11.5-15.5 [facility] Comment on above: Performed By: #### C BC ####[place] [address] MCH Auto Entitic mass (RBC) 28.8 pG Normal 26.0-34.0 [facility] Comment on above: Performed By: #### C BC ####[place] [address] MCHC Auto mass conc (RBC) 31.6 g/dL Normal 30.5-36.0 [facility] Comment on above: Performed By: #### C BC ####[place] [address] MCV Auto Entitic volume (RBC) 91.0 fL Normal 80.0-100.0 [facility] Comment on above: Performed By: #### C BC ####[place] [address] Platelet mean volume Auto Entitic volume (Bld) 9.8 fL Normal 9.0-12.7 [facility] Comment on above: Performed By: #### C BC ####[place] [address] Platelets Auto #/vol (Bld) 303 10*3/uL Normal 150-400 [facility] Comment on above: Performed By: #### C BC ####[place] [address] RBC Auto #/vol (Bld) 4.31 10*6/uL Normal 3.90-5.20 [facility] Comment on above: Performed By: #### C BC ####[facility] D[address]zrenuuu1396 [phone] WBC Auto #/vol (Bld) 7.71 10*3/uL Normal 3.70-11.00 [facility] Comment on above: Performed By: #### C BC ####[facility] Lpaxjcgkrw7389 [phone] Confirm Blood Typeon 018 ABO/RH(D) Positive Normal [facility] Comment on above: Performed By: #### C ONABO ####[facility] [address] [place] [phone] NURSING PROGon 04-09-2018 Protein mass conc HNO ID: [id number] thor: Babatunde (Rn) Dex, RNService: NursingAuthor Type: Registered NurseType: Nursing Progress NoteFiled: 04/09/2018 5:05 PMNote Text:Pt up to bathroom voided 250cc clear orange urine. Amt reported to [place]. Pt ok to be discharged to home Normal [facility] Protein mass conc HNO ID: [id number] Author: Babatunde (Rn) Dex, RN Service: Nursing Author Type: Registered Nurse Type: Nursing Progress Note Filed: 04/09/2018 4:18 PM Note Text: bladderscan = 528ml. Dr Bailey notified. Will re-scan bladder in 1 hr [facility] Protein mass conc HNO ID: [id number] Author: Babatunde (Rn) Dex, RN Service: Nursing Author Type: Registered Nurse Type: Nursing Progress Note Filed: 04/09/2018 3:28 PM Note Text: Pt reports able to void more substantial amounts of urine Normal [facility] Protein mass conc HNO ID: [id number] thor: Jennifer (Rn) Denzel, RNService: (none)Author Type: Registered NurseType: Nursing Progress NoteFiled: 04/09/2018 2:16 PMNote Text:Up to bathroom gait steady Unable to void.Up amb around nursing station with boyfriend. GaitSteady. No [id number] Tried to Vd unable vd sm amt 100 ml bladder scanned for [id number] Bailey. Updated Dr on pt status. And bladder scan of650 ml. stated to give her till 1600. If unable to void, straight cath,Call And update her. If voids, scan if 200 ml or less she can go home.1425 Reported off to [facility] Protein mass conc HNO ID: [id number] thor: Beba (Rn) Deirdre, RNService: (none)Author Type: Registered NurseType: Nursing Progress NoteFiled: 04/09/2018 10:53 AMNote Text:@ 0925 Pt received to PACU, via cart, from OR. Pt sedated - easilyaroused AND quickly returns to sleep when not stimulated. Abdomen soft - 3lap sites noted. Castillo to gravity. SCD hose on. Side rails up.Meera-pad in place.@ 0950 Sleeping - easily aroused AND questioned about discomfort - PTstates she is unsure @ this time.@ 1005 Requesting to sit upright - for back comfort. Taking ice chips.@ 1023 Medicated with Fentanyl 50mcg IV for c/o discomfort.@ 1032 Dr. Bailey in to see pt - pt feeling much better VS stable -physical assess same.@ 1050 VS stable - preliminary report to [facility] - Larry HAMMOND. [facility] OPERATIVE NOon 04-09-2018 OPERATIVE NO HNO ID: [id number] thor: Mercedes Herberte: GynecologyAuthor Type: PhysicianType: Operative ReportFiled: 04/17/2018 4:56 PMNote Text:ADDENDUM:PLEASE NOTE THIS WAS A TOTAL LAPAROSCOPIC HYSTERECTOMY with bilateralsalpingectomy and cystoscopy- [facility] OPERATIVE NO HNO ID: [id number] thor: Mercedes Herberte: GynecologyAuthor Type: PhysicianType: Operative ReportFiled: 04/27/2018 9:46 AMNote Text:ADVANCED MANAGER OPERATIVE/PROCEDURE REPORTLOG ID: [id number]/Procedure Date: 04/09/2018Incision/Procedu re Start Time: 7:58 AMIncision Close/Procedure End Time: 9:12 AMSurgeon(s)/Proceduralis t(s) and Foundation Engineer(s):Surgeon(s) and Role: * Mercedes Bailey - Primary * Michelle Young - AssistingInformed Consent: Informed Consent obtained and on the chartProcedure: Total laparoscopic hysterectomy, bilateral salpingectomy,cystoscopyP re-Op/Pre-Procedure Diagnosis: Pelvic pain and AUB, suspect adenomyosisPost-Op/Post-P rocedure Diagnosis: Same as pre-op diagnosisAntibiotic: Pre-op antibiotics as orderedProcedure Details:Patient was taken to the operating room where the sign-in and time outwere completed. General anesthesia was induced and found to be adequate.She was placed in a dorsal lithotomy position. Exam under anesthesia wasperformed. The abdomen, perineum and vagina were prepped and draped in theusual sterile fashion. SCDs were placed and turned on for DVTprophylaxis. A Castillo catheter was placed in the urinary bladder understerile conditionsAn open-sided speculum was placed in the patient's vagina with clearvisualization of the cervix. The anterior lip of the cervix was graspedwith a single tooth tenaculum.. The cervix was serially dilated to allowplacement of Adult Education Teacher and left in place throughout the laparoscopicportion of the procedure. Suture placed anterior lip of cervix andthreaded thru manipulatorAttention was turned to the abdomen with clean sterile gloves. Prior tomaking the incision the area was injected with .5% marcaine. , A 5 mmintraumbilical incision was made with the knife. and An opticalvisualization trochar was placed into the peritoneal cavity while theanterior abdominal wall was elevated. The abdomen was insufflated withCO2 gas. Local anesthetic was infiltrated. and A small incision wasmade in the Bilateral lower abdominal wall. Through these sites a 5 mmtrochar and sleeve were inserted under direct visualization.The pelvic contents were visualized and found to be as below. The roundligaments were grasped, cauterized and divided first on the patient rightand then on the patient's left using the LigaSure device. The ureterswere well clear of the operative site. The right fallopian tube andutero-ovarian ligament were grasped, cauterized and divided using theLigaSure device. The left fallopian tube and utero-ovarian ligament weregrasped, cauterized and divided using the LigaSure device. Dissectionthen proceeded down the broad ligaments bilaterally taking alternate biteswith the LigaSure device. The bladder flap was then created usingLigaSure device. All areas were inspected for hemostasis which wasexcellent.The uterine arteries were skeletonized using the LigaSure. The Delineatorcup was then identified easily around the cervix. The bladder was ensuredto be out of our colpotomy incision site. Once this was done the uterinearteries were then clamped, coagulated and transected on both sides. Oncethis was completed monopolar hook electrocautery was used to perform thecolpotomy circumferentially along the cruise consultant cup. The uterus andcervix were then delivered through the vagina and sent to pathology.Findings:Uterus : EnlargedRight Ovary: NormalLeft Ovary: NormalEndometrium: Normal endometrium and not evaluatedEndometrial cavity:Fibroids: No fibroidsPolyps: not evaluatedThe vaginal cuff ,including the posterior peritoneum, was closed withfigure-8 0-vicryl sutures vertically. The pneumo-peritoneum wasre-insuflated and the pelvic contents inspected.The specimens were sent to pathology. Hemostasis was excellent and allinstruments were removed from the abdomen and the pneumo-peritoneumreleased . The skin incisions were closed with 4-0 monocryl and Dermabond.and Cystoscopy was performed and strong bilateral jets were noted from theureters. Sign-out was completed.IV Fluids: 1000ccUrine Output: 125 mLEstimated Blood Loss: 25ccSpecimens: Left fallopian tube, Right fallopian tube and uterus, cervixImplantable Devices: NoneDrains: FoleyComplications: NoneA digital sweep of the vaginal canal was performed by MD Garry and it was ascertained that no instruments or otherforeign bodies are retained within the cavity.Sponge, lap, and needle counts were correct times two and the patient wastaken to the recovery room with stable vital signs after tolerating theprocedure well.I performed the procedure with assistance.No qualified resident/fellow was available.SIGNATURE: Mercedes Martines MD PATIENT NAME: Inés KauriDATE: April 09, 2018 : 9:27 AM PAGER/CONTACT #: [facility] PT EDon 04-09-2018 PT ED HNO ID: [id number] thor: Babatunde (Rn) DANA Kowalskiervice: NursingAuthor Type: Registered NurseType: Patient EducationFiled: 04/09/2018 5:07 PMNote Text:POST OP LEARNING RESPONSEINSTRUCTION PROVIDED TO: Patient and family memberMETHOD OF INSTRUCTION: Written instruction - handoutsVerbal instructionPATIENT / FAMILY RESPONSE: Verbalizes understanding of: POST-OPERATIVEINSTRUCTION S-Correct actions to take to reduce postoperative complicationsFOLLOW-UP PLAN: Patient instructed to call with any further issuesSUPPLEMENTAL MATERIAL: NoneREFERRAL (RECOMMENDATION): NoneElectronically Signed By: Babatunde Kowalski RN In Department: [facility] PT ED HNO ID: [id number] thor: Elliott (Rn) DANA Mikeervice: (none)Author Type: Registered NurseType: Patient EducationFiled: 04/09/2018 6:24 AMNote Text:PRE OP LEARNING ASSESSMENTPROCEDURE/SURGE RY: lap hysterectomyREADINESS TO LEARNCOGNITIVE ABILITY: Alert and orientedMOTIVATION TO LEARN: InterestedFAMILY SUPPORT: High - Very involved in pt carePATIENT LEARNS BEST BY: Individual InstructionFACTORS AFFECTING LEARNING: NonePHYSICAL LIMITATIONS AFFECTING LEARNING: NoneElectronically Signed By: Elliott Mike RN In Department: [facility] SURGICAL PATHOLOGYon 018 SURGICAL PATHOLOGY Specimen originated from [facility] #: [id number] Physician: MECREDES BAILEY MD _FINAL DIAGNOSIS1. Uterus, excision:Cervix - Chronic cervicitis.Endometrium - Late secretory phase.Myometrium - Extensive adenomyosis and two leiomyomas.2. Fallopian tubes, right and left, excision Negative for neoplasm.JOSE A/ezio 04/22/2018 Dontrell Fang M.D.(Electronic Signature) __SPECIMEN SUBMITTEDA: UTERUS, CERVIX, BILATERAL TUBES CLINICAL DATAABNORMAL UTERINE BLEEDING, LMP: NALAPAROSCOPIC HYSTERECTOMY WITH BILATERAL SALPINGECTOMY GROSS DESCRIPTIONA. Received in formalin designated uterus, cervix, bilateral tubes is auterus with attached cervix and detached undesignated fallopian tubes. Theuterus and cervix weighs 189 grams and measures 10 x 7.5 x 5.5 cm. Theserosal aspect is cunha-pink and smooth. The cervix measures 3.5 x 3 cm andhas a slit-like os present. No lesions are identified on the surface of thecervix. A vaginal cuff is not present. The endocervical canal measures 3.1cm in length. The endometrial cavity measures 4.4 cm in length by 2.5 cm inwidth. The endometrium is cunha-pink smooth averaging 0.1 cm in thickness.Sectioning of the myometrium reveals two white whorled bulging roughlyspherical masses intramural in location, that range in size from 0.7 to 1.1cm. The myometrium ranges from 1.9 cm in thickness on the anteriormyometrium to 3.9 cm in thickness in the posterior myometrium. Onefallopian tube is received intact measuring 4.5 cm in length by 0.9 cm indiameter. The fimbriated end has a normal villous appearance which has beenamputated and bisected. There are multiple peritubal cysts measuring up to0.9 cm in greatest dimension which are grossly unremarkable. Sectioning ofthe fallopian tube reveals a pin point lumen. Sectioning also reveals awhite plastic cylindrical device at the proximal aspect measuring 0.3 cm inlength by 0.4 cm in diameter. The second fallopian tube is received inmultiple pieces aggregating to 4.5 cm in length by 0.5 cm in diameter. Thefimbriated end has a normal villous appearance which has been amputated andbisected. Sectioning of the fallopian tube reveals a pin point lumen.Sectioning does not reveal a white cylindrical plastic device. Additionalexamination of the superior aspect of the uterus near the point offallopian tube attachment does not reveal a second white cylindricaldevice. Blast Furnace Keeper Helper sections are submitted as follows: A1 12 o'clockcervix, A2 6 o'clock cervix, A3 anterior uterine wall full thickness, H9ryiqyztnm uterine wall full thickness, A5 largest myometrial mass, D5ikctxe largest myometrial mass, A7 first fallopian tube described withfimbriated end totally submitted, A8 second fallopian tube described withfimbriated end totally submitted.BF/klw/04/09/20 18Gross examination performed at [facility], [address] [place], [place] [address]Patient ID #: [id number] of Report: 04/22/2018Date of Procedure: 04/09/2018Date of Receipt: 04/09/2018Submitted by: MERCEDES BAILEY MDLocation: MEORDiagnostic interpretation performed at [facility], [address] [place] [address]. Normal [facility] Comment on above: Performed By: #### T SCR30 ####[facility] [address] [place] [address] NURSING PROGon 04-06-2018 Protein mass conc HNO ID: [id number] thor: Annel (Rn) Samuel, DANAervice: NursingAuthor Type: Registered NurseType: Nursing Progress NoteFiled: 04/06/2018 10:04 AMNote Text:PACC Nurse Progress NoteHistory AND Physical:PACC Visit Date: 04/03/18Original HANDP Date: 04/03/18ED visit Date: N/AOutside HANDP Scanned Date: N/ALabs Within Last 6 Months:CBC: Date 04/03/18 cbc/diff- wnlBMP/CMP: Date 04/03/18 cmp- within acceptable limits, K+ 3.5TYPE AND SCREEN: Date 04/03/18Conabo: Date T4 -wnl TSH- within acceptble limits, on SynthroidImaging Within Last 12 Months:N/ACardiac Testing:N/ALast Menstrual Period:LMP Date: 02/24/18 per H and PPostmenopausal >1yr: No,S/P Hysterectomy: NoBMI Percentile (PEDS):N/ABMI 33.0Risk Assessment:N/AAnesthesia Review:N/ANarrative:N/APr e-op Considerations:N/AChart Check:DANA Koenigeptember 2017 10:02 AM Normal [facility] Confirm Blood Typeon 018 ABO/RH(D) Positive [facility] Comment on above: Performed By: #### C ONABO ####[facility] [address] Performed By: #### T SCR30 ####[facility] [address] HOSPon 03-17-2018 HOSP Patient:Childers RN: Height:5' 2.5(1.588 m)Weight:185 lb (83.915 kg)Outpatient Medications as of 04/09/18:ibuprofen (MOTRIN) 600 mg tabletdocusate sodium (COLACE) 100 mg capsulebuPROPion XL (WELLBUTRIN XL) 300 mg 24 hr tabletlevothyroxine (SYNTHROID) 112 mcg tablettopiramate (TOPAMAX) 50 mg tabletFUROSEMIDE (LASIX ORAL)Admission/Clinic Administered Medications as of 04/09/18:lidocaine 10 mg/mL (1 %) 1-2 mg injection (XYLOCAINE)lactated ringers infusionceFAZolin iv piggyback 2 g in D5W (iso-osmotic) 100 mL (ANCEF)scopolamine 1 mg over 3 days 1 Patch (TRANSDERM-SCOP)scopolami ne - REMOVE PATCHscopolamine - VERIFY patchProblem List:Dysthymic disorder [F34.1]INTRADERMAL NEVI(MELANOCYTIC): 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 Surgery scheduled for 04/09/18. Pleasereview.Ave Shore RNProgress Notes (INTM [facility]):Shahida Reyes LPN 04/03/2018 2:47 PM [place] patient is there now and she would like to have thyroidlabs done. last thyroid labs were done in July 2017orders pending.Tyler Hall APRN.CLOTHING DESIGNER 04/03/2018 4:45 PM SignedHas patient been having symptoms relatable to her thyroid recently? Typically wecheck thyroid levels once a year unless patient is symptomatic or when there nikita dosage change. Insurance may not cover labs if ordered now.Tyler Hlal APRN.CNPLaanai Davies LPN 04/06/2018 9:47 AM SignedLabs were completed/ordered per Dr. Calhoun. [facility] Vital Signs Date Time Vital Sign Value Performing Clinician Facility 07-12-2024 11:35-0500 Body height 157.5 cm Nancy Fleming MD Work Phone: [facility] 07-12-2024 11:35-0500 Body mass index (BMI) [Ratio] 42.25 kg/m2 Nancy Fleming MD Work Phone: [facility] 07-12-2024 11:35-0500 Body weight 104.78 kg Nancy Fleming MD Work Phone: [facility] 07-12-2024 11:35-0500 Diastolic blood pressure 83 mm[Hg] Nancy Fleming MD Work Phone: [facility] 07-12-2024 11:35-0500 Heart rate 77 /min Nancy Fleming MD Work Phone: [facility] 07-12-2024 11:35-0500 SaO2% (BldA) [Mass fraction] 99 % Nancy Fleming MD Work Phone: [facility] 07-12-2024 11:35-0500 Systolic blood pressure 121 mm[Hg] Nancy Fleming MD Work Phone: [facility] 01-30-2024 08:02-0400 Body height 157.5 cm Evelyn Hernandez MD Work Phone: [facility] 01-30-2024 08:02-0400 Body mass index (BMI) [Ratio] 38.92 kg/m2 Evelyn Hernandez MD Work Phone: [facility] 01-30-2024 08:02-0400 Body weight 96.53 kg Evelyn Hernandez MD Work Phone: [facility] 01-30-2024 08:02-0400 Diastolic blood pressure 85 mm[Hg] Evelyn Hernandez MD Work Phone: [facility] 01-30-2024 08:02-0400 Heart rate 64 /min Evelyn Hernandez MD Work Phone: [facility] 01-30-2024 08:02-0400 Respiratory rate 20 /min Evelyn Hernandez MD Work Phone: [facility] 01-30-2024 08:02-0400 Systolic blood pressure 127 mm[Hg] Evelyn Hernandez MD Work Phone: [facility] 12-29-2023 15:32-0400 Body height 157.5 cm Obinna Nelson CLOTHING DESIGNER Work Phone: [facility] 12-29-2023 15:32-0400 Body mass index (BMI) [Ratio] 37.68 kg/m2 Obinna Nelson CLOTHING DESIGNER Work Phone: [facility] 12-29-2023 15:32-0400 Body weight 93.44 kg Obinna Nelson CLOTHING DESIGNER Work Phone: [facility] 12-29-2023 15:32-0400 Diastolic blood pressure 78 mm[Hg] Obinna Nelson CLOTHING DESIGNER Work Phone: [facility] 12-29-2023 15:32-0400 Heart rate 79 /min Obinna Nelson CLOTHING DESIGNER Work Phone: [facility] 12-29-2023 15:32-0400 SaO2% (BldA) [Mass fraction] 97 % Obinna Nelson CLOTHING DESIGNER Work Phone: [facility] 12-29-2023 15:32-0400 Systolic blood pressure 115 mm[Hg] Obinna Nelson CLOTHING DESIGNER Work Phone: [facility] Encounters Encounter Date Encounter Type Care Provider Facility Start: 12-21-2024 End: 12-21-[address] [facility] ADRI [facility] Start: 12-17-2024 End: 12-21-2024 ambulatory [facility] Start: 08-26-2024 End: 08-30-2024 Clinical Support Vonnie Smith Work Phone: [facility] Comment on above: Asymmetrical sensori neural hearing loss (Primary Dx) Start: 07-23-2024 End: 07-27-2024 Clinical Support Vonnie Smith Work Phone: [facility] Comment on above: Asymmetrical sensori neural hearing loss (Primary Dx) Start: 07-21-2024 End: 07-21-2024 Coordination of care plan Kristi Claudio RN Patient Navigator Start: 07-21-2024 End: 07-21-2024 ambulatory [facility] Start: 07-13-2024 End: 07-13-2024 ambulatory PROVIDER NOT IN SYSTEM [facility] Start: 07-12-2024 End: 07-12-2024 Office outpatient new 45 minutes Nancy Fleming MD Work Phone: [facility] Comment on above: Subareolar mass of r ight breast (Primary Dx); Mass of lower inner quadrant of right breast; Abnormal mammogram Start: 07-12-2024 End: 07-12-2024 ambulatory NANCY FLEMING [facility] Ambulatory Start: 07-05-2024 End: 07-05-2024 Subsequent hospital visit by physician Rad External Film EF RAD EXTERNAL FILM VIRTUAL Comment on above: Arrived Start: 07-05-2024 End: 07-05-2024 ambulatory [facility] Start: 07-02-2024 End: 07-02-2024 Subsequent hospital visit by physician Saqib Santiago [facility] Comment on above: Unspecified lump in the right breast, lower inner quadrant Start: 07-02-2024 End: 07-02-2024 ambulatory [facility] Start: 06-18-2024 End: 06-22-2024 Clinical Support Vonnie Smith Work Phone: [facility] Comment on above: Asymmetrical sensori neural hearing loss (Primary Dx) Start: 04-27-2024 End: 04-27-2024 ambulatory CK ADRI [facility] Start: 04-16-2024 End: 04-20-2024 ambulatory VONNIE FLORES [facility] Start: 02-27-2024 End: 02-27-2024 ambulatory [facility] Start: 02-23-2024 End: 02-23-2024 ambulatory [facility] Start: 02-21-2024 End: 02-21-2024 ambulatory PROVIDER NOT IN SYSTEM [facility] Start: 01-30-2024 End: 01-30-2024 Office outpatient new 60 minutes Evelyn Hernandez MD Work Phone: [facility] Comment on above: Excessive daytime sl eepiness (Primary Dx); Excessive sleepiness Start: 01-30-2024 End: 01-30-2024 ambulatory EVELYN EHRNANDEZ [facility] Ambulatory Start: 12-29-2023 End: 12-29-2023 Office outpatient new 30 minutes Obinna Nelson CNP Work Phone: [facility] Comment on above: Family history of co deanna cancer in mother (Primary Dx); Encounter for screening colonoscopy; Chronic constipation Start: 12-29-2023 End: 01-02-2024 ambulatory OBINNA NELSON [facility] Amb[facility] Start: 12-03-2023 End: 12-03-2023 ambulatory PROVIDER NOT IN SYSTEM [facility] Start: 12-23-2022 ambulatory MARY HERRERA Facili ty:[facility] Start: 12-05-2022 ambulatory STEPHAN ALMANZAR Trino ity:[facility] Start: 11-15-2022 ambulatory PHYSICIAN MISC Facility :[facility] Start: 04-24-2021 End: 04-25-2021 ambulatory NICHOLAS GILES [facility] Start: 04-19-2021 End: 04-20-2021 ambulatory NICHOLAS GILES [facility] Start: 04-17-2021 End: 04-18-2021 ambulatory NICHOLAS GILES [facility] Start: 04-12-2021 End: 04-13-2021 ambulatory NICHOLAS GILES [facility] Start: 04-05-2021 End: 04-06-2021 ambulatory NICHOLAS GILES [facility] Start: 04-03-2021 End: 04-04-2021 ambulatory MIRIAM URBAN [facility] Start: 04-02-2021 End: 04-03-2021 [facility] Start: 03-26-2021 End: 03-27-2021 ambulatory NICHOLAS GILES [facility] Start: 03-22-2021 End: 03-23-2021 ambulatory MIRIAM URBAN [facility] Start: 03-20-2021 End: 03-21-2021 ambulatory MIRIAM URBAN [facility] Start: 03-15-2021 End: 03-16-2021 ambulatory NICHOLAS GILES [facility] Start: 03-13-2021 End: 03-14-2021 ambulatory NICHOLAS GILES [facility] Start: 03-12-2021 End: 03-13-2021 ambulatory NICHOLAS GILES [facility] Start: 03-08-2021 End: 03-09-2021 ambulatory NICHOLAS GILES [facility] Start: 03-05-2021 End: 03-06-2021 ambulatory NICHOLAS GILES [facility] Start: 02-27-2021 End: 02-28-2021 ambulatory NICHOLAS GILES [facility] Start: 02-26-2021 End: 02-27-2021 ambulatory NICHOLAS GILES [facility] Start: 02-22-2021 End: 02-23-2021 ambulatory NICHOLAS GILES [facility] Start: 02-19-2021 End: 02-20-2021 ambulatory NICHOLAS GILES [facility] Start: 2021 End: 02-16-2021 ambulatory NICHOLAS GILES [facility] Start: 02-13-2021 End: 02-14-2021 ambulatory NICHOLAS GILES [facility] Start: 02-12-2021 End: 02-13-2021 ambulatory NICHOLAS GILES [facility] Start: 02-07-2021 End: 02-08-2021 ambulatory NICHOLAS GILES [facility] Start: 04-09-2018 End: 04-09-2018 Patient encounter [facility] Procedures Date Procedure Procedure Detail Performing Clinician Start: 07-05-2024 End: 07-05-2024 Study Interpretation of outside study Ck Rai APRN-CLOTHING DESIGNER Work Phone: Start: 07-02-2024 Us breast uni real t kuldeep with image limited Ck Rai APRN-CLOTHING DESIGNER Work Phone: Start: 07-02-2024 End: 07-02-2024 Mammography Ck Rai APRN- CLOTHING DESIGNER Work Phone: Start: 06-02-2024 Thyrotropin [Units/v olume] in Serum or Plasma Saqib 1 Start: 02-27-2024 [facility] Vonnie Smith Work Phone: Start: 02-23-2024 Mammography Vonnie Smith Work Phone: Start: 01-09-2024 Thyrotropin [Units/v olume] in Serum or Plasma Evelyn Hernandez MD Work Phone: Start: 12-23-2022 Mammography Obinna James bernadine ANKIT Work Phone: Start: 02-19-2021 INTENSIVE OUTPATIENT / DAY TREATMENT NICHOLAS SEPULVEDAKJ Start: 04-03-2018 Antibody screen MERCEDES BAILEY Comment on above: Performed By: #### T SCR30 ####[facility] [address] [place], [place] [phone] Plan of Treatment Date Care Activity Detail Author Start: 02-26-2034 Screening for malign ant neoplasm of colon [facility] Start: 11-15-2025 Diabetes mellitus screening Diabetes Screening [facility] Start: 07-02-2025 Screening for malign ant neoplasm of breast Mammogram [facility] Start: 06-02-2025 Thyroid stimulating hormone measurement TSH Level [facility] Start: 02-22-2025 Screening for malign ant neoplasm of breast Mammogram [facility] Start: 01-08-2025 Thyroid stimulating hormone measurement TSH Level [facility] Start: 10-27-2024 End: 10-27-2024 Patient encounter procedure 10/27/2024 2:30 PM EDT Office Visit [facility] [address] [place] [address] [place] [address] Angus Charles CNP [address] [place] [phone] [facility] Start: 09-30-2024 End: 09-30-2024 Clinical Support 09/30/2024 10:30 AM EDT Clinical Support [facility] [address] [facility] Medical Office [facility], [address]th [place] [phone] Vonnie Flores AuD [address] [place] [address] [address] [place] [address] [facility] Start: 09-20-2024 Depression Remission Assessment (PHQ9) Depression Remission Assessment (PHQ9) [facility] Start: 09-10-2024 End: 09-10-2024 Patient encounter procedure 09/10/2024 11:40 AM EST Office Visit [facility] [address] [place] [address] Ck Rai, CLOTHING DESIGNER [address] [place] [address] [facility] Start: 08-10-2024 End: 08-10-2024 Clinical Support 08/10/2024 3:00 PM EST Clinical Support [facility] [address] [facility] Office [facility], [address] [place] [phone] Vonnie Flores AuD [address] [place] [phone] [facility] Start: 07-27-2024 End: 07-27-2024 Patient encounter procedure 07/27/2024 9:15 AM EST Office Visit [facility] [address] [facility] Office [facility], [address] [place] [phone] Nancy Fleming MD [address] [address] [facility] Start: 07-26-2024 End: 07-26-2024 Patient encounter procedure 07/26/2024 1:30 PM EST Office Visit [facility] [address] [facility] Office [facility], [address] [place] [phone] Nancy Fleming MD [address] [address] [facility] Start: 07-23-2024 End: 07-23-2024 Clinical Support 07/23/2024 9:00 AM EST Clinical Support [facility] Phys[facility] [address] [facility] Building, 5th [place] [address] Vonnie Flores AuD [address] [place] [address] [facility] Phys[facility] Start: 03-14-2024 COVID-19 Vaccine ( season) COVID-19 Vaccine ( season) [facility] Start: 03-14-2024 Influenza vaccination [facility] Start: 01-30-2024 End: 01-29-2025 In-Center Sleep Study (Non-Sleep Provider Only) In-Center Sleep Study (Non-Sleep Provider Only) Sleep Center Routine Excessive daytime sleepiness Expected: 01/30/2024 (Approximate), Expires: 01/29/2025 [facility] Service Area Work Phone: Comment on above: Expected: 01/30/2024 (Approximate), Expires: 01/29/2025 Start: 01-30-2024 End: 01-29-2025 Multiple sleep latency test Multiple sleep latency test Sleep Center Routine Excessive daytime sleepiness Expected: 01/30/2024 (Approximate), Expires: 01/29/2025 [facility] Work Phone: Comment on above: Expected: 01/30/2024 (Approximate), Expires: 01/29/2025 Start: 01-30-2024 End: 01-29-2025 Opiate/Opioid/Benzo Prescription Compliance Opiate/Opioid/Benzo Prescription Compliance Lab Routine Excessive daytime sleepiness Expected: 01/30/2024 (Approximate), Expires: 01/29/2025 [facility] Work Phone: Comment on above: Expected: 01/30/2024 (Approximate), Expires: 01/29/2025 Start: 01-28-2024 Subsequent hospital visit by physician 01/28/2024 Hospital Encounter [facility] [address] [place] [address] Molly Betancourt MD [address] [place] [address] [facility] Start: 01-22-2024 End: 01-22-2024 Patient encounter procedure 01/22/2024 4:15 PM EDT Appointment [facility] [address] [place] [address] [facility] Start: 01-07-2024 End: 01-07-2024 Patient encounter procedure 01/07/2024 3:30 PM EDT Office Visit [facility] [address] [place] [phone] Martha Topete, ANKIT [address] [place] [address] [facility] Start: 12-24-2023 Screening for malign ant neoplasm of breast Mammogram [facility] Start: 03-14-2023 COVID-19 Vaccine ( season) COVID-19 Vaccine ( season) [facility] Start: 02-16-2020 Administration of he rpes zoster vaccine Zoster Vaccines (1 of 2) [facility] Start: 02-16-2020 Pneumococcal vaccination Pneum ococcal Vaccine (1 of 1 - PCV) [facility] Start: 02-16-2020 Pneumococcal Vaccine : Age 50+ (1 of 1 - PCV) Pneumococcal Vaccine: Age 50+ (1 of 1 - PCV) [facility] Start: 02-16-2020 Screening for malign ant neoplasm of colon Flexible sigmoidoscopy [facility] Start: 02-16-2020 Zoster Vaccines (1 of 2) Zoste r Vaccines (1 of 2) [facility] Start: 07-14-2000 Tetanus vaccination Tetanus: Every 1 0yrs [facility] Start: 02-16-2000 Screening for malign ant neoplasm of cervix [facility] Start: 1991 Screening for malign ant neoplasm of cervix [facility] Start: 07-15-1990 DTaP/Tdap/Td Vaccine s (2 - Tdap) DTaP/Tdap/Td Vaccines (2 - Tdap) [facility] Start: 1989 Hepatitis B Vaccines (1 of 3 - 19+ 3-dose series) Hepatitis B Vaccines (1 of 3 - 19+ 3-dose series) [facility] Start: 02-16-1988 Hepatitis C screening Hepatitis C Sc reening [facility] Start: 1985 HIV screening HIV Screening [facility] Start: 1973 History and physical examination, annual for health maintenance Wellness Visit [facility] Start: 1971 MMR Vaccines (1 of 1 - Standard series) MMR Vaccines (1 of 1 - Standard series) [facility] Start: 1970 HIV screening HIV Screening [facility] Start: 1970 Lipid panel Lipid Panel [facility] Start: 1970 Screening for malign ant neoplasm of colon [facility] Start: 1970 Yearly Adult Physical Yearly Adult P hysical [facility] Colonoscopy COLONOSCOPY Fami ly history of colon cancer in mother Chronic constipation [facility] End: 09-10-2025 MG Breast - right Diagnostic Mammography Diagnostic Otilio Right Imaging Routine Subareolar mass of right breast Abnormal mammogram 1 Occurrences starting 07/12/2024 until 09/10/2025 [facility] Comment on above: 1 Occurrences starti ng 07/12/2024 until 09/10/2025 End: 07-12-2025 US Axilla - right US Axilla Only Right (Breast Related) Imaging STAT Subareolar mass of right breast Abnormal mammogram 1 Occurrences starting 07/12/2024 until 07/12/2025 [facility] Comment on above: 1 Occurrences starti ng 07/12/2024 until 07/12/2025 End: 07-12-2025 US Guidance for biopsy of Breast - right US Breast Biopsy Right Imaging STAT Subareolar mass of right breast Abnormal mammogram 1 Occurrences starting 07/12/2024 until 07/12/2025 [facility] Work Phone: Comment on above: 1 Occurrences starti ng 07/12/2024 until 07/12/2025 Immunizations Immunization Date Immunization Notes Care Provider Fran long 07-14-1990 tetanus and diphther ia toxoids, adsorbed, preservative free, for adult use (2 Lf of tetanus toxoid and 2 Lf of diphtheria toxoid) Vonnie Smith Work Phone: [facility] Payers Date Payer Category Payer Medicaid [id number] 2022 Medicaid (Managed Care) [employer] MEDICAID Member Subscriber Plan / Payer (Effective 2022-Present) Name: Inés Patton Relation to Subscriber: Self Name: Inés Patton Payer ID: Not on file Type: Not on file Address: [place] [id number] 2022 Medicaid [id number] 2019 Unknown [id number] 1970 Unknown [id number] 2.16840.1.902048.3.579.2. 1970 Unknown [id number] 2.16840.1.846049.3.579.2. 1970 Unknown [id number] 2.16840.1.591387.3.579.2. 1970 Unknown [id number] 2.16840.1.641104.3.579.2. 1970 Unknown [id number] 2.16840.1.380671.3.579.2. 204 1970 Unknown [id number] 2.16840.1.212827.3.579.2. 1970 Unknown [id number] 2.16840.1.608683.3.579.2. 1970 Unknown [id number] 2.16840.1.044462.3.579.2. 1970 Unknown [id number] 2.16.840.1.004603.3.579.2. 204 1970 Unknown [id number] 2.16.840.1.809347.3.579.2. 204 1970 Unknown [id number] 2.16.840.1.493875.3.579.2. 204 1970 Unknown [id number] 2.16.840.1.613717.3.579.2. 204 1970 Unknown [id number] 2.16.840.1.595666.3.579.2. 204 1970 Unknown [id number] 2.16.840.1.464508.3.579.2. 1970 Unknown [id number] 2.16.840.1.790773.3.579.2. 1970 Unknown [id number] 2.16.840.1.949018.3.579.2. 1970 Unknown [id number] 2.16.840.1.071844.3.579.2. 204 1970 Unknown [id number] 2.16.840.1.130862.3.579.2. 1970 Unknown [id number] 2.16.840.1.565600.3.579.2. 204 1970 Unknown [id number] 2.16.840.1.774186.3.579.2. 1970 Unknown [id number] 2.16.840.1.388764.3.579.2. 204 1970 Unknown [id number] 2.16.840.1.145976.3.579.2. 1970 Unknown [id number] 2.16.840.1.033371.3.579.2. 1970 Unknown [id number] 2.16.840.1.537066.3.579.2. 1970 Unknown [id number] 2.16.840.1.246722.3.579.2. 204 1970 Unknown [id number] 2.16.840.1.767523.3.579.2. 204 1970 Unknown [id number] 2.16.840.1.105795.3.579.2. 204 1970 Unknown [id number] 2.16.840.1.206290.3.579.2. 204 1970 Unknown [id number] 2.16.840.1.766255.3.579.2. 1244 1970 Unknown [id number] 2.16.840.1.404687.3.579.2. 3 1970 Unknown [id number] 2.16.840.1.868129.3.579.2. 3 1970 Unknown [id number] 2.16.840.1.280344.3.579.2. 1244 1970 Unknown [id number] 2.16.840.1.113751.3.579.2. 1244 1970 Unknown [id number] 2.16.840.1.335630.3.579.2. 1244 1970 Unknown [id number] 2.16.840.1.262401.3.579.2. 1245 1970 Unknown [id number] 2.16.840.1.944760.3.579.2. 900 1970 Unknown [id number] 2.16.840.1.452025.3.579.2. 900 1970 Unknown [id number] 2.16.840.1.534565.3.579.2. 900 1970 Unknown [id number] 2.16.840.1.286260.3.579.2. 900 1970 Unknown [id number] 2.16.840.1.404712.3.579.2. 900 1970 Unknown [id number] 2.16.840.1.015216.3.579.2. 900 1970 Unknown [id number] 2.16.840.1.373648.3.579.2. 903 1970 Unknown [id number] 2.16.840.1.110997.3.579.2. 903 1970 Unknown [id number] 2.16.840.1.845956.3.579.2. 1970 Unknown [id number] 2.16.840.1.776040.3.579.2. 3 1970 Unknown [id number] 2.16.840.1.433467.3.579.2. 1970 Unknown [id number] 2.16.840.1.884862.3.579.2. 1970 Unknown [id number] 2.840.1.664425.3.579.2. 1970 Unknown [id number] 2.16840.1.219242.3.579.2. 3 1970 Unknown [id number] 2.16840.1.116523.3.579.2. 1970 Unknown [id number] 2.16840.1.081733.3.579.2. 3 1970 Unknown [id number] 2.16840.1.935678.3.579.2. 1970 Unknown [id number] 2.16.840.1.904321.3.579.2. 3 1970 Unknown [id number] 2.16.840.1.600325.3.579.2. 1970 Unknown [id number] 2.16.840.1.652791.3.579.2. 902 Unknown [id number] 2.16.840.1.369774.3.579.2. 283 Unknown [id number] 2.16.840.1.770667.3.579.2. 283 Unknown [id number] 2.16.840.1.539453.3.579.2. 283 Social History Date Type Detail Facility Start: 12-29-2023 End: 04-27-2024 Tobacco smoking status NHIS Ex-smoker [facility] Start: 07-14-1999 End: 03-21-2015 History of tobacco use Current smoker [facility] Start: 07-14-1999 End: 03-21-2015 History of tobacco use Cigarette Smoker [facility] Start: 12-29-2023 End: 04-27-2024 Tobacco use and exposure Smokeless tobacco non-user [facility] Start: 12-29-2023 Alcohol intake Current drinker of alcohol (finding) [facility] Start: 12-10-2023 End: 03-02-2024 History of Social function [facility] Start: 12-10-2023 End: 03-02-2024 Tobacco use panel [facility] Start: 12-29-2023 Alcohol Comment rare [facility] Start: 1970 Sex Assigned At Not on file [facility] Start: 11-14-2023 Gender identity Identifies as female gender (finding) [facility] Start: 11-14-2023 Sexual orientation Heterosexual (finding) [facility] Start: 06-07-2024 End: 07-23-2024 Alcoholic beverage intake Ex-drinker (finding) [facility] Within the last year , have you been afraid of your partner or ex-partner? No [facility] Are you now , , , , never or living with a partner? Living with partner [facility] How often to you hav e a drink containing alcohol? Monthly or less [facility] How many standard drinks containing alcohol do you have on a typical day? 1 or 2 [facility] How often do you hav e 6 or more drinks on 1 occasion? Never [facility] How hard is it for y ou to pay for the very basics like food, housing, medical care, and heating Somewhat hard [facility] Do you feel stress - tense, restless, nervous, or anxious, or unable to sleep at night because your mind is troubled all the time - these days [OSQ] Only a little [facility] Minutes of Exercise per Session Not on file [facility] (I/We) worried whemonroe er (my/our) food would run out before (I/we) got money to buy more. Never true [facility] Start: 04-27-2024 Tobacco Comment Off and on had to sneak and hide from ex [facility] Start: 03-03-2024 Alcohol Comment Very rarely [facility] Start: 01-20-2024 End: 07-02-2024 Exposure to SARS-CoV-2 (event) Not sure [facility] Medical Equipment Procedure Code Equipment Code Equipment Origin al Text Equipment Identifier Dates Marker 15ga T3 Biopsy Site [employer] - [id number], [id number] FDA Start: 07-21-2024 Goals Date Patient Goal Desired Activity /State Personal health goal Comment on above: Formatting of this n ote might be different from the original. Good Nutrition: Make healthier food choices Reduce portion size Follow meal plan Clinical Notes 12-29-2023 to 08-26-2024 Vonnie Flores, AuD - 08/26/2024 10:16 AM Kristi Stewart RN - 07/23/2024 11:19 AM Vonnie Grier, AuD - 07/23/2024 10:22 AM Kristi Stewart RN - 07/21/2024 1:28 PM EST Note Date & Type Note Facility 08-26-2024 History of Present illness Narrative Images from the original note were not included. [facility] [address] [place] [address] Name: Inés Patton : 1970 Date: 08/26/24 Hearing Aid Consult Note: Ms. Patton returned today for her initial hearing aid conformity evaluation. She reports that she is having difficulty getting used to her hearing aids (CROS system). Data logging revealed that Ms. Patton has been averaging about 7 hours per day of hearing aid usage since she was fit. She also stated that she has not been able to experience her hearing aids in a background of noise or a restaurant setting yet. We discussed the need to increase her wearing time which will help her adapt to the sensation of the hearing aids in her ears and will allow her more opportunities to experience her CROS system in a variety of listening situations. Ms. Patton will try to increase her wearing time and return as scheduled for her next conformity evaluation. No adjustments were made today as Ms. Patton is already at 100% of her target volume. Ms. Patton expressed understanding of and agreement with the above. Electronically Signed by: Sarah Gtz, JIN/A, FAAA, DEION Cert. 08/26/24 10:16 AM documented in this encounter [facility]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
== END 2025-01-19 09:14 | disposition home or self-care (01) ==
PROVIDERS: Emergency Provider Emergency Medicine; PCP Nurse Practitioner Family; Visit Provider Emergency Medicine
DX: M65.4 Radial styloid tenosynovitis [de Quervain] (principal); Z90.710 Acquired absence of both cervix and uterus; Z96.659 Presence of unspecified artificial knee joint; X58.XXXA Exposure to other specified factors, initial encounter; Y93.89 Activity, other specified; Y92.019 Unspecified place in single-family (private) house as the place of occurrence of the external cause
CPT/HCPCS: 99282

== ENCOUNTER 2025-06-20 20:42 | Emergency (ER) | payer MEDICAID, SELFPAY ==
[2025-06-20 20:43] VITALS: BP 152/90; PULSE 82; RESP 18; TEMP 35.8; O2SAT 98; BMI 41.5
--- NOTE | 2025-06-20 21:10 | EKG12_ITS ---
Test Reason : DYSRHYTHMIA Blood Pressure : */* mmHG Vent. Rate : 74 BPM Atrial Rate : 74 BPM P-R Int : 122 ms QRS Dur : 90 ms QT Int : 378 ms P-R-T Axes : 68 36 57 degrees QTcB Int : 419 ms Normal sinus rhythm Possible Left atrial enlargement Borderline ECG Confirmed by Delano Retana ([id number]), videotape editor DANISH ALONZO ([id number]) on 06/22/2025 11:35:15 AM Referred By: Confirmed By: Delano Retana
--- NOTE | 2025-06-20 21:12 | EDS_ITS ---
HPI History of Present Illness Chief Complaint: Headache Informant: patient Onset/Context/Timing Location: Frontal and parietal Worsened by: Nothing Relieved by: Muscle relaxers Associated Symptoms/Injury Associated Symptoms: Positive for Sinus Pressure, Blurred Vision and - (Tenderness); Negative for Fever, Nausea, Vomiting, Sore Throat, Numbness, Tingling, Preceding Aura, Photophobia or Visual Loss Injury - RAE: Negative for Direct Trauma, Fall or Assault Narrative Narrative: Patient presents with a headache that has been constant for the past 5 to 6 weeks. Patient describes it as dull. Patient states it is gradually gotten worse. Patient states it is over the frontal and parietal areas. Patient states nothing makes it worse. Patient states it got better somewhat with muscle relaxers. Patient states she is diabetic. Patient states her sugars have been going up and down. Patient states her most recent hemoglobin A1c was elevated. Patient states she has been having some intermittent blurry vision. Patient also admits to some sinus pressure. [facility] Medical History (Updated 06/20/25 @ 23:[address] Wiliam Yap DO) Diabetes mellitus Osteoarthritis Fibromyalgia delivery delivered Hysterectomy planned Depression Hypothyroidism Allergy/AdvReac Type Severity Reaction Status Date / Time No Known Allergies Allergy Verified 06/20/25 20:43 Surgical History (Updated 06/20/25 @ 23:[address] Wiliam aYp DO) Total knee replacement status Social History Smoking Status: Former smoker ROS ROS ED Constitutional Constitutional ED: Denies chills or fever(s) Eyes Eyes: Reports blurry vision; Denies diplopia ENT ENT ED: Denies rhinorrhea or sore throat Cardiovascular Cardiovascular: Reports chest pain and racing heartbeat Respiratory/Chest Respiratory/Chest: Denies cough or dyspnea Gastrointestinal Gastrointestinal: Denies nausea or vomiting Genitourinary Genitourinary ED: Denies dysuria or hematuria Musculoskeletal Musculoskeletal: Reports neck pain; Denies back pain Integumentary Denies abscess or rash Neurologic Neurologic: Reports headache(s); Denies weakness Allergic/Immunologic Allergic/Immunologic ED: Denies mouth swelling or urticaria EXAM Physical Exam Const Vital Signs: 06/20/25 20:43 06/20/25 20:49 06/20/25 20:49 Temperature 96.5 F L Temperature Source Temporal Pulse Rate 82 Respiratory Rate 18 Respiratory Effort Normal Normal Respiratory Pattern Normal Blood Pressure 152/90 H Blood Pressure Mean 110 Pulse Ox 98 Oxygen Delivery Method Room Air Positive well nourished and well developed General Appearance ED: well developed and NAD HEENT Reports normocephalic atraumatic; Negative for temporal artery tenderness Neck supple, no meningeal signs and no JVD Resp normal respiratory effort and clear to auscultation bilaterally Cardio regular rate and regular rhythm GI non-tender and non-distended Palpation: soft Neuro oriented x3, CN's II-XII intact bilaterally and no sensory deficits noted Tim Coma Scale: document GCS findings Spontaneous Obeys Commands Oriented 15 Sensorium / Orientation: awake and alert Speech: speech normal Motor Exam: strength 5/5 throughout Psych mental status grossly normal MDM MDM MDM Narrative Medical decision making narrative: Differential diagnose includes intracranial bleeding, electrolyte abnormality, temporal arteritis, hypothyroidism, sinusitis, migraine headache, tension headache. CT scan of the brain will be obtained to assess for intracranial bleeding and sinusitis. CBC will be obtained to assess for leukocytosis and anemia. Basic metabolic profile will be obtained to assess for electrolyte abnormality and renal function. Sed rate and CRP will be obtained to assess for inflammatory markers. TSH will be obtained to assess for hypothyroidism. Urinalysis will be obtained to assess for urinary tract infection and hematuria. EKG will be obtained to assess for cardiac dysrhythmia and cardiac ischemia. Lab Data Attestation: I reviewed the patient's lab results. Lab results narrative: CBC was reviewed and was within normal limits. Basic metabolic profile was reviewed. BUN was slightly elevated at 22 and creatinine was slightly elevated at 1.47. The remainder was within normal limits. Sed rate was reviewed and was slightly elevated at 47. CRP was reviewed and was slightly elevated at 10.5. TSH was repeated and was slightly elevated at 7.55. Urinalysis was reviewed. There is no evidence of urinary tract infection or hematuria. Radiography Diagnostic Testing: CT scan of the brain was obtained. There is no acute intracranial abnormality. This was interpreted by the radiologist. I also independently reviewed the images and did not see any acute intracranial bleeding noted. EKG Initial EKG: Attestation: I personally reviewed and interpreted this EKG as follows: Interpretation: Sinus Rhythm (74) and No Acute Injury Pattern Comments: EKG was obtained. On my independent interpretation, it showed a normal sinus rhythm with a rate of 74. MS interval, QRS interval, and QTc intervals were all normal. [place] was normal. There are no acute ST or T wave changes. Prior EKG tracings: not available for review Prior: No Prior Treatment and Re-Evaluation Narrative: Patient is given IV fluids, Reglan, and Benadryl. Discharge Plan Triage Chief Complaint: Headache Other Complaint: Hypertension Palpitations ED Provider: Wiliam Yap Dx/Rx/DC Orders Clinical Impression: Headache, Hypothyroidism Instructions: ED Headache Unspecified Primary Care Provider: Kavitha Calhoun Referrals: Shirley Keen, [facility] [Non-Staff, Family Practice] Print Language: Solomon Islander
[2025-06-20] MEDS: DiphenhydrAMINE 50 MG/ML Syringe 25 MG IV (21:17)
--- NOTE | 2025-06-20 21:26 | CT_ITS ---
PROCEDURE: CT BRAIN/HEAD WITHOUT CONTRAST 06/20/2025 REASON FOR EXAM: HEADACHE TECHNIQUE: Procedure Code: CTBR Modality: CT Procedure: BRAIN/HEAD WITHOUT CONTRAST Coronal and Sagittal reconstruction series were provided. One or more dose reduction techniques were used (e.g., Automated exposure control, adjustment of the mA and/or kV according to patient size, use of iterative reconstruction technique. RADIATION DOSE SUMMARY: CTDlvol: 44.99 mGy DLP: 782.05 mGycm COMPARISON: None. FINDINGS: No acute intracranial hemorrhage, extra-axial collection, mass effect or evidence of acute infarct. Ventricles and subarachnoid spaces are normal in size. Orbital contents are unremarkable. Intact skull base and calvarium. Clear paranasal sinuses and mastoid air cells. CT/Brain/Head without Contrast IMPRESSION: Unremarkable head CT. Reading Location: [id number]
[2025-06-20 21:43] VITALS: BP 128/87; PULSE 72; RESP 16; O2SAT 99
--- OUTSIDE RECORDS SUMMARY | 2025-06-20 21:49 | XMS RPT_ITS | CCD ---
Author Organization [facility] Inform ion Partnership [facility] CliniSyid Care Team Providers Care Drapery Inspector Name Role Phone MERCEDES ROSALES Unavailable [...] HERRERA Attending Unavailable STEPHAN ALMANZAR Attending Unavailable MISC, PHYSICIAN Attending Unavailable Swihart ANKIT, Ck Primary Care Provider EVELYN TOVAR Attending Unavailable EVELYN TOVAR Referring Unavailable SWIHART, CK L Primary Care Unavailable Swihart HOME THEATER SPECIALIST-DATABASE MARKETING ANALYST, Ck Diehl Primary Care Provider SWIHART, CK L Referring [...] Unavailable SWIHART, CK L Primary Care Unavailable Kristi Claudio RN Unavailable Unavailab le SYSTEM, PROVIDER NOT IN [...] Care Unavailable SWIHART, CK Referring Unavailable [facility]YSICI[facility], [facility] Attending Unavailable SWIHART, CK Primary Care Unavailable KRISTOPHER, NANCY CARLIN Attending Unavailab le KRISTOPHER, NANCY CARLIN Referring Unavailab le SWIHART, CK Primary Care Unavailable KRISTOPHER, NANCY CARLIN Attending Unavailab le KRISTOPHER, NANCY CARLIN Referring Unavailab le BEN, MOLLY SUE Attending Unavail able SWIHART, CK Primary Care Unavailable BEN, MOLLY SUE Admitting Unavail able SWIHART, CK ADRI Referring Unavailable SWIHART, CK ADRI Attending Unavailable SWIHART, CK ADRI Primary Care Unavailable Swihart ORTHOTIC/PROSTHETIC CLINICIAN-C, Ck Primary Care Provider Dr. Levy Allen DO Emergency Provider Swihart DATABASE MARKETING ANALYST, Ck Kirk Primary Care Provider Ravin PHAM, Elisabeth Tripp Primary Care Provider Levy Allen Attending Unavailable Swihart, Ck Primary Care Unavailable VONNIE FLORES Attending Unavailable SWIHART, CK ADRI Primary Care Unavailable NANCY FLEMING Attending Unavailab le SWIHART, CK ADRI Primary Care Unavailable SWIHART, CK ADRI Referring Unavailable VONNIE FLORES Attending Unavailable SWIHART, CK ADRI Primary Care Unavailable VONNIE FLORES Attending Unavailable SWIHART, CK ADRI Primary Care Unavailable SWIHART, CK ADRI Primary Care Unavailable VONNIE FLORES Attending Unavailable ELISABETH ALICIA Primary Care Unavailable VONNIE FLORES Attending Unavailable VONNIE FLORES Attending Unavailable SWIHART, CK ADRI Primary Care Unavailable SWIHART, CK ADRI Referring Unavailable ANGUS CHARLES Attending Unavailab le SWIHART, CK ADRI Primary Care Unavailable Swihart DATABASE MARKETING ANALYST, Ck Kirk Primary Care Provider GANTA, SUJATHA Primary Care Unavailable NOEMY WESTON Referring Unavailable FRANKLIN, MARLEEN Referring Unavailable GANTA, SUJATHA Primary Care Unavailable ELIAS DONIS Attending Unavailable GANTA, SUJATHA Primary Care Unavailable MARLEEN SCOTT Referring Unavailable PARIS EDUARDO Referring Unavailable SUJATHA VILLANUEVA Primary Care Unavailable PARIS EDUARDO Attending Unavailable KAY SUJATHA Primary Care Unavailable CK RAI Primary Care Unavailable CK RAI Primary Care Unavailable NOEMY WESTON Attending Unavailable MARLEEN SCOTT Attending Unavailable [facility] SUJATHA Primary Care Unavailable Allergies Allergy Classification Reported Allergen(s) Allergy Type Date of Onset Reaction(s) Facility (17 sources) diclofenac; Translations: [DICLOFENAC] Drug Allergy 7 Other (See Comments) [facility] Other [place] [facility] (10 sources) Diclofenac; Translations: [DICLOFENAC SODIUM] Drug Allergy 4 [facility] 3 Repository Medications Current Medications Medication Drug Class(es) Dates Sig (Normalized) Sig (Original) bisacodyl 5 mg delayed release oral tablet (1 source) Stimulant Laxative Start: 12-29-2023 bisacodyL (DULCOLAX) 5 mg EC tablet Take 4 tablets 8PM the evening before your colonoscopy . 4 tablet 0 12/29/2023 Active 24 hr buPROPion hydrochloride 150 mg extended release oral tablet (18 sources) Aminoketone Start: 01-09-2024 End: 01-08-2025 take 1 tablet by mouth once daily buPROPion (WELLBUTRIN XL) 150 MG 24 hr tablet Indications: Anxiety Take 1 (one) tablet (150 mg total) by mouth daily . 90 tablet 03/03/2024 Active Start: 04-23-2019 take 1 tablet by hermelinda th once daily in the morning buPROPion [...] 12/09/2023 Active cholecalciferol 0.05 mg oral capsule (17 sources) Vitamin D take 1 capsule by mouth once daily cholecalciferol, vitamin D3, (Vitamin D3) 50 mcg (2,000 unit) cap Take 1 (one) capsule by mouth daily . Active docusate sodium 100 mg oral capsule (1 source) Start: 04-01-2018 take 1 capsule by mouth twice daily docusate sodium (COLACE) 100 mg capsule Take 1 capsule by mouth twice daily. 60 capsule 2 04/01/2018 Active DULoxetine 30 mg delayed release oral capsule (9 sources) Serotonin and Norepinephrine Reuptake Inhibitor Start: 03-11-2024 DULoxetine (CYMBALTA) 30 MG capsule Take 40 mg by mouth daily . 03/11/2024 Active Start: 03-11-2024 take 1 capsule by mo [facility] once daily DULoxetine (CYMBALTA) 30 MG capsule Take 1 (one) capsule (30 mg total) by mouth daily . 03/11/2024 Active Furosemide (1 source) Loop Diuretic FUROSEMIDE (LASI X ORAL) Take by mouth once daily. Takes every other day Active gabapentin 300 mg oral capsule (1 source) Anti-epileptic Agent Start: 08-27-19 take 1 capsule by mouth twice daily gabapentin (NEURONTIN) 300 mg capsule Indications: Meralgia paraesthetica, left Take 1 capsule by mouth twice daily for 90 days. 60 capsule 2 08/27/2018 Active ibuprofen 600 mg oral tablet (1 source) Nonsteroidal Anti-inflammatory Drug Start: 04-01-20 take 1 tablet by mouth every six hours as needed ibuprofen (MOTRIN) 600 mg tablet Take 1 tablet by mouth every 6 hours as needed for Pain. FOR PAIN. 30 tablet 04/01/2018 Active levothyroxine sodium 0.088 mg oral tablet (16 sources) l-Thyroxine Start: 02-29-20 End: 04-29-20 take 1 tablet by mouth once daily levothyroxine (SYNTHROID, LEVOTHROID) 88 MCG tablet Indications: Hypothyroidism, unspecified type Take 1 (one) tablet (88 mcg total) by mouth once daily . 30 tablet 1 02/28/2025 04/29/2025 Active Start: 01-09-2024 take 1 tablet by hermelinda once daily levothyroxine (SYNTHROID, LEVOTHROID) 125 MCG tablet Indications: Hypothyroidism, unspecified type Take 1 (one) tablet (125 mcg total) by mouth daily . 90 tablet 06/07/2024 Active Start: 09-11-2018 take 1 tablet by hermelinda once daily levothyroxine (SYNTHROID, LEVOTHROID) 125 MCG tablet Take 1 (one) tablet (125 mcg total) by mouth daily . 30 tablet 0 12/05/2023 Active lisdexamfetamine dimesylate 30 mg oral capsule (9 sources) Central Nervous System Stimulant lisdexamfetamine (VY VANSE) 30 MG capsule Take 50 mg by mouth every morning Patient reports 40 mg QD . Active lisdexamfetamine (VYVANSE) 30 MG capsule Take 40 mg by mouth every morning Patient reports 40 mg QD . Active meloxicam 7.5 mg oral tablet (1 source) Nonsteroidal Anti-inflammatory Drug Start: 03-16-2025 take 1 tablet by mouth once daily meloxicam (MOBIC) 7.5 MG tablet Take 1 (one) tablet (7.5 mg total) by mouth daily . 30 tablet 03/16/2025 Active naproxen 500 mg oral tablet (1 source) Nonsteroidal Anti-inflammatory Drug Start: 05-18-2018 take 1 tablet by mouth twice daily as needed for pain naproxen (NAPROSYN) 500 mg tablet Indications: Left hip pain , Left thigh pain Take 1 tablet by mouth twice daily as needed (for pain/inflammation ). Take with food. 60 tablet 05/18/2018 Active polyethylene glycol 3350 517938 mg / potassium chloride 2970 mg / sodium bicarbonate 6740 mg / sodium chloride 5860 mg / sodium sulfate 77644 mg powder for oral solution (1 source) Osmotic Laxative Start: 12-29-2023 End: 12-29-2023 polyethylene glycol (GoLYTELY) 236-22.74-6.74 -5.86 gram solution Take 4,000 mL by mouth once for 1 dose . 4000 mL 0 12/29/2023 12/29/2023 Active predniSONE 10 mg oral tablet (1 source) Start: 05-28-2018 predniSONE (DELTASONE) 10 mg tablet Take 40 mg x 3 days, 20 mg x 3 days, 10 mg x 3 days. Take with food, once daily 21 tablet 05/28/2018 Active tiZANidine 4 mg oral tablet (1 source) Central alpha-2 Adrenergic Agonist Start: 05-28-2018 take 1 tablet by mouth every six hours as needed tiZANidine (ZANAFLEX) 4 mg tablet Take 1 tablet by mouth every 6 hours as needed. 30 tablet 05/28/2018 Active topiramate 25 mg oral tablet (18 sources) Start: 06-05-2024 take 4 tablets by mouth once daily topiramate (TOPAMAX) 25 MG tablet Take 4 (four) tablets (100 mg total) by mouth daily . 06/05/2024 Active Start: 06-05-2024 take 2 tablets by mo uth once daily topiramate (TOPAMAX) 25 MG tablet Take 2 (two) tablets (50 mg total) by mouth daily . 06/05/2024 Active Start: 12-24-2023 take 1 tablet by hermeilnda th twice daily topiramate (TOPAMAX) 100 MG tablet Take 1 (one) tablet (100 mg total) by mouth 2 (two) times a day . 60 tablet 1 12/24/2023 Active Start: 08-27-2018 take 1 tablet by hermelinda th twice daily topiramate (TOPAMAX) 50 mg tablet Take 1 tablet by mouth twice daily. 180 tablet 3 08/27/2018 Active take 1 tablet by hermelinda th [...] Class(es) Dates Sig (Normalized) Sig (Original) nystatin [id number] unt/ml topical cream (1 source) Polyene Antifungal [...] Translations: [Pelvic and perineal pain] Onset: 03-17-2018 Administrative/social admission (1 source) Persons encountering health services in other specified circumstances; Translations: [Encounter to establish care] Onset: 04-21-2025 Episodic Diabetes mellitus without complication (1 source) Prediabetes; Translations: [Prediabetes] Onset: 04-21-2025 Episodic Inflammation; infection of eye (except that caused by tuberculosis or sexually transmitteddisease) (1 source) Punctate keratitis, bilateral; Translations: [Punctate keratitis, bilateral] Onset: 04-21-2025 Chronic Malaise and fatigue (1 source) Other fatigue; Translations: [Fatigue, unspecified type] Onset: 02-24-2025 Episodic Mood disorders (1 source) Dysthymia; Translations: [Dysthymic disorder] 11-09-2024 Chronic Other aftercare (1 source) Other manager long term care (current) drug therapy; Translations: [On angiotensin receptor blockers (ARB)] Onset: 02-24-2025 Episodic Other connective tissue disease (2 sources) Pain in right forearm; Translations: [Pain in right forearm] Onset: 12-21-2024 Episodic Other connective tissue disease (1 source) Radial styloid tenosynovitis; Translations: [Radial styloid tenosynovitis [de Quervain]] 01-19-2025 Episodic Other connective tissue disease (2 sources) Radial styloid tenosynovitis [de Quervain]; Translations: [Radial styloid tenosynovitis [de Quervain]] Onset: 01-26-2025 Episodic Other ear and sense organ disorders (6 sources) Asymmetrical sensorineural hearing loss; Translations: [Sensorineural hearing loss, bilateral] 06-18-2024 Chronic Other ear and sense organ disorders (2 sources) Sensorineural hearing loss, bilateral; Translations: [Sensorineural hearing loss, bilateral] Onset: 06-18-2024 Chronic Other female genital disorders (1 source) Abnormal uterine bleeding; Translations: [Abnormal uterine and vaginal bleeding, unspecified] Onset: 10-07-2017 03-17-2018 Chronic Other injuries and conditions due to external causes (1 source) Foreign body on external eye, part unspecified, left eye, initial encounter; Translations: [Foreign body of left eye, initial encounter] Onset: 04-21-2025 Episodic Other nutritional; endocrine; and metabolic disorders (1 source) Obesity; Translations: [Obesity, unspecified] Onset: 10-29-2006 06-14-2014 Chronic Other nutritional; endocrine; and metabolic disorders (1 source) Body mass index (BMI) 40.0-44.9, adult; Translations: [Class 3 severe obesity with body mass index (BMI) of 40.0 to 44.9 in adult, unspecified obesity type, unspecified whether serious comorbidity present (HCC)] Onset: 06-14-2014 Chronic Residual codes; unclassified (2 sources) Other hypersomnia; Translations: [Other hypersomnia] Onset: 01-30-2024 Chronic Residual codes; unclassified (2 sources) Hypersomnia, unspecified; Translations: [Hypersomnia, unspecified] Onset: 01-30-2024 Chronic Residual codes; unclassified (1 source) Hypersomnia; Translations: [Hypersomnia, unspecified] 01-30-2024 Chronic Residual codes; unclassified (1 source) Daytime somnolence; Translations: [Other hypersomnia] 01-30-2024 Chronic Residual codes; unclassified (2 sources) Pain; Translations: [Pain, unspecified] 03-30-2025 Episodic Residual codes; unclassified (1 source) Pain, unspecified; Translations: [Pain] Onset: 03-31-2025 Episodic Substance-related disorders (1 source) Tobacco user; Translations: [Nicotine dependence, unspecified, uncomplicated] Onset: 10-29-2006 11-09-2024 Chronic Thyroid disorders (14 sources) Hypothyroidism; Translations: [Hypothyroidism, unspecified] Onset: 10-29-2006 Resolved: 08-11-2015 11-21-2023 Chronic Unclassified (2 sources) New Patient Onset: 04-27-2024 Unclassified (1 source) Class 3 severe obesity with body mass index (BMI) of 40.0 to 44.9 in adult, unspecified obesity type, unspecified whether serious comorbidity present (HCC); Translations: [Class 3 severe obesity with body mass index (BMI) of 40.0 to 44.9 in adult, unspecified obesity type, unspecified whether serious comorbidity present (HCC)] Onset: 06-14-2014 Past or Other Problems Problem Classification Problem Date Documented Da te Episodic/Chronic Abdominal pain (1 source) Pain in pelvis; Translations: [Pelvic and perineal pain] Onset: 03-17-2018 03-17-2018 Episodic Genitourinary symptoms and ill-defined conditions (2 sources) Increased frequency of urination; Translations: [Frequency of micturition] Onset: 2008 Resolved: 06-14-2014 06-14-2014 Episodic Neoplasms of unspecified nature or uncertain behavior (1 source) Neoplasm of uncertain behavior of skin; Translations: [Neoplasm of uncertain behavior of skin] Onset: 03-26-2006 11-09-2024 Episodic Nonmalignant breast conditions (17 sources) Lump in lower inner quadrant of right breast; Translations: [Unspecified lump in the right breast, lower inner quadrant] Onset: 07-02-2024 07-02-2024 Episodic Other and unspecified benign neoplasm (1 source) Benign neoplasm of skin of face; Translations: [Other benign neoplasm of skin of unspecified part of face] Onset: 03-26-2006 11-09-2024 Episodic Other connective tissue disease (1 source) Pain of left thigh; Translations: [Pain in left thigh] Onset: 05-19-2018 05-19-2018 Episodic Other ear and sense organ disorders (2 sources) Tinnitus, bilateral; Translations: [Tinnitus, bilateral] Onset: 04-16-2024 Episodic Other gastrointestinal disorders (11 sources) Chronic constipation; Translations: [Other constipation] Onset: 12-29-2023 12-29-2023 Episodic Other gastrointestinal disorders (2 sources) Other constipation; Translations: [Other constipation] Onset: 12-29-2023 Episodic Other non-traumatic joint disorders (1 source) Pain in lower limb; Translations: [Pain in unspecified knee] Onset: 10-29-2006 11-09-2024 Episodic Other non-traumatic joint disorders (1 source) Hip pain; Translations: [Pain in left hip] Onset: 05-19-2018 05-19-2018 Episodic Other screening for suspected conditions (not mental disorders or infectious disease) (11 sources) Patient encounter status; Translations: [Encounter for screening for malignant neoplasm of colon] Onset: 02-23-2024 12-29-2023 Episodic Other skin disorders (1 source) Sebaceous cyst of skin; Translations: [Sebaceous cyst] Onset: 03-26-2006 11-09-2024 Episodic Residual codes; unclassified (11 sources) Family history of cancer of colon; Translations: [Family history of malignant neoplasm of digestive organs] Onset: 12-29-2023 12-29-2023 Episodic Residual codes; unclassified (2 sources) Family history of malignant neoplasm of digestive organs; Translations: [Family history of malignant neoplasm of digestive organs] Onset: 12-29-2023 Episodic Unclassified (1 source) SCREENING Onset: 12-23-2022 Results Test Name Value Interpretation Reference Range Facility CNOVon 05-11-2025 CNOV Office Visit (STOT ) ----- INÉS DUMAS ([id number]) 1970 F Date Time Provider Department 05/11/25 2:30 PM PARIS EDUARDO [facility] During your visit today, we recorded the following information about you: Paris Eduardo PA-C 05/11/2025 4:46 PM Signed May 11, 2025 CHIEF COMPLAINT: bilateral wrist pain HPI: Inés Dumas is a 55 year old RHD female who presents to clinic with bilateral wrist pain L>R. She has had this for a few months. She thought it was from opening large windows. The pain affects the radial side of her wrist. It previously radiated up her forearm. She has tried using a thumb spica brace. She has tried oral steroids which somewhat helped temporarily. She has tried ice and heat. She has tried Mobic. She has had left ring trigger finger release in the past in [place]. 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 There are two tendons, the abductor pollicis longus (APL) and extensor pollicis brevis (EPB) that pass through a tunnel (the extensor retinaculum) to get into the forearm. This tunnel has a very limited space for the tendons to fit. If overuse or injury causes the tendons to swell or the tunnel to shrink, the tendons do not fit and this causes pain and inflammation. The standard treatment involves activity modification plus or minus splinting and corticosteroid injection. Recent studies have found about 80% of patients get better with a corticosteroid injection into the first dorsal compartment. We know that certain patients have anatomic variants (multiple slips of the APL or separate compartments for the APL and EPB) that make them less likely to respond to an injection or non-operative treatment in general. Patients who are unsatisfied with non-operative treatment are offered surgery to release the first dorsal compartment. She would like to try an injection for her bilateral wrists today. No guarantees or warranties were provided; she voiced understanding of the risks and benefits and wishes to proceed with our agreed upon plan. Follow up in 6 weeks but if doing well may cancel. Additional Injections: R extensor compartment 1 for de Quervain's tenosynovitis 05/11/2025 3:16 PM The procedure site was prepped in the usual sterile fashion. Medications: 10 mg triamcinolone acetonide 10 mg/mL Anesthetics: 1 mL lidocaine (PF) 10 mg/mL (1 %) Outcome: tolerated well, no immediate complications Post-injection instructions were reviewed with the patient and the patient voiced understanding of these instructions. Informed Consent Consent Obtained: Verbal [place] Protocol A moment to CARE was completed. SIGN IN Personnel directly involved with the procedure wore the appropriate PPE. Special Equipment: N/A Patient/Surrogate Stated/Verified: Patient name, Date of , Relevant allergies and Intended procedure TIME OUT No relevant labs, photos, and/or imaging studies were applicable for review. Correct side/site marked and visible. Medications required for procedure verified. No fire risk assessment and interventions applicable. No implant(s) inserted. Additional Injections: L extensor compartment 1 for de Quervain's tenosynovitis 05/11/2025 3:16 PM The procedure site was prepped in the usual sterile fashion. Medications: 10 mg triamcinolone acetonide 10 mg/mL Anesthetics: 1 mL lidocaine (PF) 10 mg/mL (1 %) Outcome: tolerated well, no immediate complications Post-injection instructions were reviewed with the patient and the patient voiced understanding of these instructions. Informed Consent Consent Obtained: Verbal [place] Protocol A moment to CARE was completed. SIGN IN Personnel directly involved with the procedure wore the appropriate PPE. Special Equipment: N/A Patient/Surrogate Stated/Verified: Patient name, Date of , Relevant allergies and Intended procedure TIME OUT No relevant labs, photos, and/or imaging studies were applicable for review. Correct side/site marked and visible. Medications required for procedure verified. No fire risk assessment and interventions applicable. No implant(s) inserted. OBJECTIVE: There were no vitals filed for this visit. There is no height or weight on file to calculate BMI. General: NAD Eyes: Pupils not pinpointed, not overly dilated, anicteric Neck: Full range of motion Cardiovascular: Palpable pulse and brisk capillary refill (<2 sec) to all fingers Lymphatic: Inspection of the arm/hand reveals no lymphedema Respiratory: Respirations even and unlabored, no audible wheezing Integumentary: Inspection of skin reveals no breaks or obvious lesions except for those noted below. (more content not included)... [facility] XR WRIST 3V PA/LAT/OBL LTon 05-11-2025 XR WRIST 3V PA/LAT/OBL LT * * *Final Report* * * DATE OF EXAM: May 11 2025 2:27PM STX [id number] - XR WRIST 3V PA/LAT/OBL LT / PROCEDURE REASON: Pain * * * * Physician Interpretation * * * * EXAM: XR WRIST 3V PA/LAT/OBL LT HISTORY: Pain. TECHNIQUE: XR WRIST 3V PA/LAT/OBL LT Laterality: LEFT Number of different views (projections): 3 COMPARISON: None. RESULT: Bone mineralization is normal without aggressive osseous lesion. No fracture or dislocation is present. The joint spaces are maintained. No significant arthropathy, no osseous erosions. No soft tissue abnormality. Ulnar neutral variance. IMPRESSION: 1. No acute osseous abnormality. No arthropathy. Supervisor Intermediates: FOREST Transcribe Date/Time: May 12 2025 9:05A Dictated by : PERRI ALAMO MD This examination was interpreted and the report reviewed and electronically signed by: PERRI ALAMO MD on May 12 2025 9:07AM EST [id number] [facility] CNOVon 04-21-2025 CNOV Office Visit (INTMWS ) ----- INÉS DUMAS ([id number]) 1970 F Date Time Provider Department 04/21/25 8:20 AM MARLEEN SCOTT [place] During your visit today, we recorded the following information about you: Pulse Respiration Blood pressure Weight 70/minute 16/minute 128/90 103.4 kg Marleen Scott APRN.DATABASE MARKETING ANALYST 04/21/2025 4:16 PM [facility] with: Establish Care: Establish Care HPI Inés Dumas is a 55 year old female who presents today for establishing care. Recording using [employer] software for draft documentation of the visit was discussed with the patient/authorized site safety representative; all questions welcomed and answered. Patient/authorized site safety representative agreed to proceed Inés Dumas is a 55-year-old female with a history of hypothyroidism, premenstrual tension syndrome, dysthymic disorder, fibromyalgia, and ADHD, presenting for an initial visit and evaluation of weight management, and medication management. 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 - Tried various braces; current smaller braces provide some relief. - Completed a course of prednisone. - Considering corticosteroid injections; has an appointment scheduled for the with a specialist for this Weight Management: - History of significant weight loss with Adipex 10 years ago; recent attempts with Adipex unsuccessful as ordered by [id number] - Concerns about weight gain with current medications. - Taking topiramate 50 mg in the morning and 100 mg at night to manage binge eating. - Engaged in regular exercise at [employer]. - Struggles with vegetable intake. Hypothyroidism: - Managed with levothyroxine 88 mcg daily; dose decreased twice in recent months. - Last thyroid level check in February. - Family history of thyroid issues in both parents. Prediabetes: Denies increase thirst hunger or urination from her typical baseline Fibromyalgia: - Previously managed well with Cymbalta, which provides relief but causes decreased libido. - Recently started Lexapro 5 mg daily to manage depression and anxiety with fewer sexual side effects. - Taking meloxicam daily for knee and generalized pain. ADHD: - Managed with Vyvanse 50 mg daily; recently restarted after a brief discontinuation as prescribed by [place] [id number] - Previously tried higher doses of Wellbutrin and Zoloft with undesirable side effects. Dysthymic Disorder: - Managed with Wellbutrin 150 mg daily. - Recent medication changes led to increased anxiety and a panic attack, requiring EMS intervention. Feels she is improving now and starting to get back to baseline. Is following with psychiatry at [place] [address] - no thoughts of harming herself or others - Family history of depression and anxiety in mother. Constipation: - Chronic constipation, exacerbated by Adipex. - Uses a natural supplement to manage symptoms; Metamucil worsens constipation. - denies current constipation, nausea, vomiting, or abdominal pain. REVIEW OF SYSTEMS General: no fevers, no chills, no night sweats, no recurrent infections, no change in appetite, no change in energy, and no significant changes in weight Respiratory: no cough, no wheezing, no shortness of breath, no hemoptysis Cardiovascular: no chest pain, no chest pressure, no palpitations, and no swelling : No history of dysuria, frequency or incontinence Neurologic: No headache, weakness, dizziness, memory loss, syncope. PAST MEDICAL HISTORY Diagnosis Date ADHD (attention deficit hyperactivity disorder) Dysthymic disorder Depression (non-psychotic) Fibromyalgia Premenstrual tension syndromes Unspecified hypothyroidism PAST SURGICAL HISTORY Procedure Laterality Date DELIVERY ONLY 1995 1999 , low cervical HYSTERECTOMY 04/09/2018 LAPAROSCOPIC HYSTERECTOMY TOTAL FOR UTERUS 250 G OR LESS W/REMOVAL TUBE(S) AND/OR OVARY(S) INSERTION OF IUD 01/11/2014 IUD REMOVAL ([facility] DEPT)_*FL 09/2017 LIG/TRNSXJ FLP TUBE ABDL/VAG APPR UNI/BI Tubal ligation TOTAL KNEE REPLACEMENT Left ALLERGIES Voltaren [Diclofenac] MEDICATIONS escitalopram oxalate (LEXAPRO) 5 mg tablet Take 1 tablet by mouth once daily. VYVANSE 50 mg capsule Take 50 mg by mouth once daily. meloxicam (MOBIC) 7.5 mg tablet Take 1 tablet by mouth once daily. Take with food. topiramate (TOPAMAX) 50 mg tablet 50mg in AM and 100mg in PM - Prescribed by Mag 419 buPROPion XL (WELLBUTRIN XL) 150 mg 24 hr tablet Take 1 tablet by mouth once daily. Cholecalciferol, Vitamin D3, 50 mcg (2,000 unit) cap Take 1 capsule by mouth once daily. levothyroxine (LEVOXYL) 88 mcg tablet Take 1 tablet by mouth once daily. Take on empty stomach. For thyroid. meloxicam (MOBIC ORAL) Take by mouth. FAMILY HISTORY Problem Relation Age of Onset Thyroid Mother Psychia (more content not included)... Normal [facility] TSH SerPl-aCncon 04-21-2025 TSH Qn 5.600 m[IU]/L High 0.270-4.200 [facility] Comment on above: Order Comment: Speci men Type: BLOOD SPECIMEN Ordering Facility: [facility] Address: [address] [place] [address] Performed By: #### 3 016-3 #### [facility] CLIA [id number] [address] [place] [address] [place] CNOVon 03-31-2025 CNOV Office Visit (SPRTST ) ----- INÉS DUMAS ([id number]) 1970 F Date Time Provider Department 03/31/25 1:00 PM NOEMY WESTON SPRTST During your visit today, we recorded the following information about you: Noemy Weston MD 04/03/2025 4:04 PM Signed [id number] PHYSICIAN: Patient seen at the request of Ck Rai CNP, DATABASE MARKETING ANALYST for an opinion and evaluation of right wrist. A copy of this office note was sent electronically with my evaluation and recommendations. CHIEF COMPLAINT: Patient presents with: Right Wrist - New HISTORY OF PRESENT ILLNESS: Inés Dumas is a 55 year old female with a history of bilateral wrist pain. she moved to new place. windows large and stiff. it started after opening window. she had more forearm pain to start. she saw her pcp who got xray forearm. nl. told to ice and rest. she is right handed. 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 she kept re injuring as nanny. she got drug store wrist brace. she went to the ED beginning of February. he did finkelsteins test. positive. they gave longer brace. metal on forearm hurt. now her left thumb hurts. it isn't going away. she gets bilateral wrist pain worse at base of thumbs. she has wraps and braces for night. she takes meloxicam for her knee daily for 3-4 months. it helps her knees. it is 7.5 mg. she is not diabetic. she is borderline. she is working on weight loss. she is on topomax- it is for binge eating. she has lost inches, more than pounds. not exercising as much as food management. she just joined [employer]. no n/t. they hurt all the time. she has tried iced, heated, voltaren gel, no help. PAST MEDICAL HISTORY Diagnosis Date Dysthymic disorder Depression (non-psychotic) Premenstrual tension syndromes Unspecified hypothyroidism PAST SURGICAL HISTORY Procedure Laterality Date DELIVERY ONLY 1995 1999 , low cervical HYSTERECTOMY 04/09/2018 LAPAROSCOPIC HYSTERECTOMY TOTAL FOR UTERUS 250 G OR LESS W/REMOVAL TUBE(S) AND/OR OVARY(S) INSERTION OF IUD 01/11/2014 IUD REMOVAL ([facility] DEPT)_*FL 09/2017 LIGATE FALLOPIAN TUBE Tubal ligation FAMILY HISTORY Problem Relation Age of Onset Hypertension Maternal Grandmother Thyroid Mother Psychiatry Mother depression Hypertension Father Diabetes Father Cancer Father KIDNEY,lung Thyroid Father Heart Maternal Grandfather mi Heart Paternal Grandmother pacemaker Heart Paternal Grandfather mi ALLERGIES: ALLERGIES Allergen Reactions Voltaren [Diclofena* CURRENT OUTPATIENT MEDICATIONS: Current Outpatient Medications on File Prior to Visit Medication Sig meloxicam (MOBIC ORAL) Take by mouth. phentermine-topiramate ER (QSYMIA) 3.75-23 mg 24 Hr Capsule Take 1 capsule by mouth once daily. buPROPion XL (WELLBUTRIN XL) 300 mg 24 hr tablet Take 1 tablet by mouth once daily. levothyroxine (LEVOXYL) 125 mcg tablet Take 1 tablet by mouth once daily. Take on empty stomach. For thyroid. topiramate (TOPAMAX) 50 mg tablet Take 1 tablet by mouth twice daily. gabapentin (NEURONTIN) 300 mg capsule Take 1 capsule by mouth twice daily for 90 days. (Patient not taking: Reported on 03/31/2025) tiZANidine (ZANAFLEX) 4 mg tablet Take 1 tablet by mouth every 6 hours as needed. (Patient not taking: Reported on 03/31/2025) predniSONE (DELTASONE) 10 mg tablet Take 40 mg x 3 days, 20 mg x 3 days, 10 mg x 3 days. Take with food, once daily (Patient not taking: Reported on 03/31/2025) naproxen (NAPROSYN) 500 mg tablet Take 1 tablet by mouth twice daily as needed (for pain/inflammation). Take with food. (Patient not taking: Reported on 03/31/2025) ibuprofen (MOTRIN) 600 mg tablet Take 1 tablet by mouth every 6 hours as needed for Pain. FOR PAIN. docusate sodium (COLACE) 100 mg capsule Take 1 capsule by mouth twice daily. (Patient not taking: Reported on 03/31/2025) FUROSEMIDE (LASIX ORAL) Take by mouth once daily. Takes every other day No current facility-administered medications on file prior to visit. REVIEW OF SYSTEMS: GENERAL: no recent illness, unexplained weight loss or weight gain NEUROLOGIC: no numbness, tingling, or weakness except as mentioned in HPI, no known neuro problems or deficits SKIN: No rash or new skin changes and no chronic skin problems RHEUMATOLOGIC: no swollen joints, recurrent tendonopathies, and no known rheum problems PHYSICAL EXAMINATION: bilateral wrist GENERAL APPEARANCE: Well appearing, in no acute distress, alert and oriented x3. PHYSICAL EXAM: Sublingual capillary refill: Normal, Localized swelling: No, Localized deformity: No, Localized echymosis: No, Wrist ROM: extension 90, flexion 90, Epicondylar tenderness: No, MCP ROM: WNL - 0* ext / 90* FLEX, PIP ROM: WNL - 0* ext / 90* FLEX, DIP: WNL - 0* ext / 90* FLEX, Collateral instability : Normal, and pos finkelsteins bilaterally (more content not included)... Normal [facility] XR WRIST 4V PA/LAT/OBL/SCAPH RTon 03-31-2025 XR WRIST 4V PA/LAT/OBL/SCAPH RT * * *Final Report* * * DATE OF EXAM: Mar 31 2025 12:57PM STX 5273 - XR WRIST 4V PA/LAT/OBL/SCAPH RT / PROCEDURE REASON: Pain * * * * Physician Interpretation * * * * HISTORY: Pain . chronic right wrist pain TECHNIQUE: XR WRIST 4V PA/LAT/OBL/SCAPH RT Laterality: RIGHT Number of different views (projections): 4 COMPARISON: None RESULT: No acute fracture or dislocation. Minimal triscaphe narrowing and tiny osteophytes. Tiny first CMC osteophytes.. Mild negative ulnar variance. No marginal erosion. Soft tissues are unremarkable. IMPRESSION: Minimal degenerative changes. Supervisor Intermediates: FOREST Transcribe Date/Time: Apr 01 2025 12:31P Dictated by : ITALO LI MD This examination was interpreted and the report reviewed and electronically signed by: ITALO LI MD on Apr 01 2025 12:32PM EST [id number] Normal [facility] CBC panel Auto (Bld)on 02-24 Erythrocyte distribution width (RBC) [Ratio] 13.6 % Normal 11.5-15.0 [facility] Comment on above: Order Comment: Abilio lopez Type: BLOOD SPECIMEN Ordering Facility: [facility] Address: , , Performed By: #### 5 8410-2 #### [facility] CLIA [id number] [address] [place] [address] [place] Hematocrit (Bld) [Volume fraction] 43.5 % Normal 36.0-46.0 [facility] Comment on above: Order Comment: Jose Ei john Type: BLOOD SPECIMEN Ordering Facility: [facility] Address: , , Performed By: #### 5 8410-2 #### [facility] CLIA [id number] [address] [place] [address] [place] Hemoglobin (Bld) [Mass/Vol] 13.6 g/dL Normal 11.5-15.5 [facility] Comment on above: Order Comment: Speci men Type: BLOOD SPECIMEN Ordering Facility: [facility] Address: , , Performed By: #### 5 8410-2 #### [facility] CLIA [id number] [address] [place] MCH (RBC) [Entitic mass] 27.8 pg Normal 26.0-34.0 [facility] Comment on above: Order Comment: Speci men Type: BLOOD SPECIMEN Ordering Facility: [facility] Address: , , Performed By: #### 5 8410-2 #### [facility] CLIA [id number] [address] [place] [address] [place] MCHC (RBC) [Mass/Vol] 31.3 g/dL Normal 30.5-36.0 [facility] Comment on above: Order Comment: Speci men Type: BLOOD SPECIMEN Ordering Facility: [facility] Address: , , Performed By: #### 5 8410-2 #### [facility] CLIA [id number] [address] [place] [address] [place] MCV (RBC) [Entitic vol] 89.0 fL Normal 80.0-100.0 [facility] Comment on above: Order Comment: Speci men Type: BLOOD SPECIMEN Ordering Facility: [facility] Address: , , Performed By: #### 5 8410-2 #### [facility] CLIA [id number] [address] [place] [address] [place] Nucleated RBC (Bld) [#/Vol] 10*3/uL Normal <0.01 [facility] Comment on above: Order Comment: Speci men Type: BLOOD SPECIMEN Ordering Facility: [facility] Address: , , Performed By: #### 5 8410-2 #### [facility] CLIA [id number] [address] [id number] [address] [place] Platelet mean volume (Bld) [Entitic vol] 10.9 fL Normal 9.0-12.7 [facility] Comment on above: Order Comment: Speci men Type: BLOOD SPECIMEN Ordering Facility: [facility] Address: , , Performed By: #### 5 8410-2 #### [facility] CLIA [id number] [address] [address] [place] Platelets (Bld) [#/Vol] 346 10*3/uL Normal 150-400 [facility] Comment on above: Order Comment: Speci men Type: BLOOD SPECIMEN Ordering Facility: [facility] Address: , , Performed By: #### 5 8410-2 #### [facility] CLIA [id number] [address] [place] [address] [place] RBC (Bld) [#/Vol] 4.89 10*6/uL Normal 3.90-5.20 [facility] Comment on above: Order Comment: Speci men Type: BLOOD SPECIMEN Ordering Facility: [facility] Address: , , Performed By: #### 5 8410-2 #### [facility] CLIA [id number] [address] [place], [place] [address] [place] WBC (Bld) [#/Vol] 8.10 10*3/uL Normal 3.70-11.00 [facility] Comment on above: Order Comment: Speci men Type: BLOOD SPECIMEN Ordering Facility: [facility] Address: , , Performed By: #### 5 8410-2 #### [facility] CLIA [id number] [address] [place] [address] [place] Comprehensive metabolic 2000 panelon 02-24-2025 Albumin [Mass/Vol] 4.5 g/dL Normal 3.9-4.9 [facility] Comment on above: Order Comment: Speci men Type: BLOOD SPECIMEN Ordering Facility: [facility] Address: , , Performed By: #### 5 5454-3 #### [facility] CLIA [id number] [address] [place] [id number] [place] ALP [Catalytic activity/Vol] 124 U/L High 34-123 [facility] Comment on above: Order Comment: Speci men Type: BLOOD SPECIMEN Ordering Facility: [facility] Address: , , Performed By: #### 5 5454-3 #### [facility] CLIA [id number] [address] [place] [id number] [place] ALT [Catalytic activity/Vol] 20 U/L Normal 7-38 [facility] Comment on above: Order Comment: Speci men Type: BLOOD SPECIMEN Ordering Facility: [facility] Address: , , Performed By: #### 5 5454-3 #### [facility] CLIA [id number] [address] [place], [place] [address] [place] Anion gap [Moles/Vol] 13 mmol/L Normal 8-15 [facility] Comment on above: Order Comment: Speci men Type: BLOOD SPECIMEN Ordering Facility: [facility] Address: , , Performed By: #### 5 5454-3 #### [facility] CLIA [id number] [address] [place] [address] [place] AST [Catalytic activity/Vol] 20 U/L Normal 13-35 [facility] Comment on above: Order Comment: Speci men Type: BLOOD SPECIMEN Ordering Facility: [facility] Address: , , Performed By: #### 5 5454-3 #### [facility] CLIA [id number] [facility] [place] [id number] [place] Bilirubin [Mass/Vol] 0.4 mg/dL Normal 0.2-1.3 [facility] Comment on above: Order Comment: Speci men Type: BLOOD SPECIMEN Ordering Facility: [facility] Address: , , Performed By: #### 5 5454-3 #### [facility] CLIA [id number] [address] [id number] [address] [place] Calcium [Mass/Vol] 9.6 mg/dL Normal 8.5-10.2 [facility] Comment on above: Order Comment: Speci men Type: BLOOD SPECIMEN Ordering Facility: [facility] Address: , , Performed By: #### 5 5454-3 #### [facility] CLIA [id number] [address] [address] [place] Chloride [Moles/Vol] 105 mmol/L Normal 98-107 [facility] Comment on above: Order Comment: Speci men Type: BLOOD SPECIMEN Ordering Facility: [facility] Address: , , Performed By: #### 5 5454-3 #### [facility] CLIA [id number] [address] [place], [place] [address] [place] CO2 [Moles/Vol] 22 mmol/L Normal 22-30 [facility] Comment on above: Order Comment: Speci men Type: BLOOD SPECIMEN Ordering Facility: [facility]mitter Address: , , Performed By: #### 5 5454-3 #### [facility] CLIA [id number] [address] [place], [place] [address] [place] Creatinine [Mass/Vol] 0.95 mg/dL Normal 0.58-0.96 [facility] Comment on above: Order Comment: Speci men Type: BLOOD SPECIMEN Ordering Facility: [facility] Address: , , Performed By: #### 5 5454-3 #### [facility] CLIA [id number] [address] [place] [address] [place] eGFRcr SerPlBld CKD-EPI 2020 71 mL/min/1.73m??? Normal >=60 [facility] Comment on above: Order Comment: Speci men Type: BLOOD SPECIMEN Ordering Facility: [facility] Address: , , Result Comment: Ju[place] mated Glomerular Filtration Rate (eGFR) is calculated using the 2020 CKD-EPI creatinine equation. This equation utilizes serum creatinine, sex, and age as parameters. The creatinine assay has traceable calibration to isotope dilution-mass spectrometry. Refer to KDIGO guidelines for clinical interpretation. In patients with unstable renal function, e.g. those with acute kidney injury, the eGFR may not accurately reflect actual GFR. Performed By: #### 5 5454-3 #### [facility] CLIA [id number] [address] [address] [place] Glucose [Mass/Vol] 91 mg/dL Normal 74-99 [facility] Comment on above: Order Comment: Abilio lopez Type: BLOOD SPECIMEN Ordering Facility: External [facility]mitter Address: , , Result Comment: The [place] Diabetes Association (ADA) provides guidance for cutoff values for fasting glucose and random glucose. The ADA defines fasting as no caloric intake for at least 8 hours. Fasting plasma glucose results between 100 to 125 mg/dL indicate increased risk for diabetes (prediabetes). Fasting plasma glucose results greater than or equal to 126 mg/dL meet the criteria for diagnosis of diabetes. In the absence of unequivocal hyperglycemia, results should be confirmed by repeat testing. In a patient with classic symptoms of hyperglycemia or hyperglycemic crisis, random plasma glucose results greater than or equal to 200 mg/dL meet the criteria for diagnosis of diabetes. Reference: Standards of Medical Care in Diabetes 2016, [place] Diabetes Association. Diabetes Care. 2016.39(Suppl 1). Performed By: #### 5 5454-3 #### [facility] CLIA [id number] [address] [place] [address] [place] Potassium [Moles/Vol] 4.3 mmol/L Normal 3.7-5.1 [facility] Comment on above: Order Comment: Abilio lopez Type: BLOOD SPECIMEN Ordering Facility: External Submitter Address: , , Performed By: #### 5 5454-3 #### [facility] CLIA [id number] [address] [address] [place] Protein [Mass/Vol] 7.5 g/dL Normal 6.3-8.0 [facility] Comment on above: Order Comment: Abilio lopez Type: BLOOD SPECIMEN Ordering Facility: External Submitter Address: , , Performed By: #### 5 5454-3 #### [facility] CLIA [id number] [address] [address] [place] Sodium [Moles/Vol] 140 mmol/L Normal 136-144 [facility] Comment on above: Order Comment: Abilio lopez Type: BLOOD SPECIMEN Ordering Facility: External Submitter Address: , , Performed By: #### 5 5454-3 #### [facility] CLIA [id number] [address] [place], [place] [address] [place] Urea nitrogen [Mass/Vol] 19 mg/dL Normal 7-21 [facility] Comment on above: Order Comment: Abilio lopez Type: BLOOD SPECIMEN Ordering Facility: External Submitter Address: , , Performed By: #### 5 5454-3 #### [facility] CLIA [id number] [address] [place] [address] [place] HbA1c (Bld)on 02-24-2025 Average glucose Estimated from glycated hemoglobin (Bld) [Mass/Vol] 126 mg/dL Normal [facility] Comment on above: Order Comment: Abilio lopez Type: BLOOD SPECIMEN Ordering Facility: External Submitter Address: , , Result Comment: eAG: (Estimated average glucose) is a calculated value from HgbA1c and is site safety representative of the average blood glucose level in the last 2-3 month period. Performed By: #### 5 5454-3 #### [facility] CLIA [id number] [address] [place], [place] [address] [place] HbA1c (Bld) [Mass fraction] 6.0 % High 4.3-5.6 [facility] Comment on above: Order Comment: Abilio lopez Type: BLOOD SPECIMEN Ordering Facility: External Submitter Address: , , Result Comment: [place] Diabetes Association guidelines indicate that patients with HgbA1c in the range 5.7-6.4% are at increased risk for development of diabetes, and intervention by lifestyle modification may be beneficial. HgbA1c greater or equal to 6.5% is considered diagnostic of diabetes. Performed By: #### 5 5454-3 #### [facility] CLIA [id number] [facility] [place] [address] [place] INSULIN ANTIBODY BLDon 02-24 Insulin Ab Qn (S) <0.4 Normal <0.4 [facility] Comment on above: Order Comment: Abilio lopez Type: BLOOD SPECIMEN Ordering Facility: External Submitter Address: , , Result Comment: Anti -insulin antibody test is used as an aid in diagnosis and prognosis of autoimmune diabetes mellitus in combination with other tests such as anti-GAD65 and anti-IA-2 antibody. A single negative result cannot rule out autoimmune diabetes mellitus. The test is not reliable in patients who had previously received exogenous insulin. Clinical correlation is required. Performed By: #### I NSLAB #### [facility] CLIA [id number] [address] [place] [address] [place] INSULIN ANTIBODY, QUALITATIVE Negative Normal Negative [facility] Comment on above: Order Comment: Abilio lopez Type: BLOOD SPECIMEN Ordering Facility: External Submitter Address: , , Performed By: #### I NSLAB #### [facility] [place] [id number] [address] [place] [address] [place] Lipid 1996 panelon Cholesterol [Mass/Vol] 170 mg/dL Normal <200 [facility] Comment on above: Order Comment: Abilio lopez Type: BLOOD SPECIMEN Ordering Facility: External Submitter Address: , , Result Comment: <200 mg/dL, Desirable 200-239 mg/dL, Borderline high >239 mg/dL, High Performed By: #### 5 5454-3 #### [facility] CLIA [id number] [address] [place] [address] [place] Cholesterol in HDL [Mass/Vol] 59 mg/dL Normal >39 [facility] Comment on above: Order Comment: Abilio lopez Type: BLOOD SPECIMEN Ordering Facility: External Submitter Address: , , Result Comment: 40-5 9 mg/dL, Acceptable >59 mg/dL, High: Negative risk factor for coronary heart disease <40 mg/dL, Low: Positive risk factor for coronary heart disease Performed By: #### 5 5454-3 #### [facility] CLIA [id number] [address] [place] [id number] [place] Cholesterol in LDL [Mass/Vol] 97 mg/dL Normal <100 [facility] Comment on above: Order Comment: Speci men Type: BLOOD SPECIMEN Ordering Facility: External Submitter Address: , , Result Comment: <100 mg/dL, Optimal 100-129 mg/dL, Near optimal/above optimal 130-159 mg/dL, Borderline high 160-189 mg/dL, High >189 mg/dL, Very high Secondary prevention optimal LDL Cholesterol levels are recommended to be <70 mg/dL LDL cholesterol is calculated using the Angulo-NIH equation. Performed By: #### 5 5454-3 #### [facility] CLIA [id number] [address] [place] Cholesterol in LDL/Cholesterol in HDL [Mass ratio] 1.64 {ratio} Normal <2.54 [facility] Comment on above: Order Comment: Abilio lopez Type: BLOOD SPECIMEN Ordering Facility: External Submitter Address: , , Result Comment: [place]: 1. National Cholesterol Education Program ATP III Guideline At-A-Glance Quick Desk Reference: National Heart, Lung, and Blood [place]. National Institutes of Health. 2001: NIH Publication No. 01-3305. 2. An International Atherosclerosis Society position paper: global recommendations for the management of dyslipidemia: executive summary, Atherosclerosis. 2014: 232(2):410-413. Performed By: #### 5 5454-3 #### [facility] CLIA [id number] [address] [address] [place] Cholesterol in VLDL [Mass/Vol] 11 mg/dL Normal <30 [facility] Comment on above: Order Comment: Abilio john Type: BLOOD SPECIMEN Ordering Facility: External Submitter Address: , , Performed By: #### 5 5454-3 #### [facility] CLIA [id number] [address] [facility] [id number] Cholesterol non HDL [Mass/Vol] 111 mg/dL Normal <130 [facility] Comment on above: Order Comment: Jose Edarlyn lopez Type: BLOOD SPECIMEN Ordering Facility: External Submitter Address: , , Result Comment: <130 mg/dL, Optimal 130-159 mg/dL, Near optimal/above optimal 160-189 mg/dL, Borderline high 190-219 mg/dL, High >219 mg/dL, Very high Secondary prevention optimal non HDL Cholesterol levels are recommended to be <100 mg/dL Performed By: #### 5 5454-3 #### [facility] CLIA [id number] [address] [place] [address] Cholesterol.total/Cho lesterol in HDL [Mass ratio] 2.88 {ratio} Normal <5.10 [facility] Comment on above: Order Comment: Abilio john Type: BLOOD SPECIMEN Ordering Facility: External Submitter Address: , , Performed By: #### 5 5454-3 #### [facility] CLIA [id number] [address] [place] [address] [place] FASTING TIME 16 hrs Normal [facility] Comment on above: Order Comment: Jose Edarlyn lopez Type: BLOOD SPECIMEN Ordering Facility: External Submitter Address: , , Performed By: #### 5 5454-3 #### [facility] CLIA [id number] [address] [place] [address] [place] Triglyceride [Mass/Vol] 71 mg/dL Normal <150 [facility] Comment on above: Order Comment: Jose Edarlyn lopez Type: BLOOD SPECIMEN Ordering Facility: External Submitter Address: , , Result Comment: <150 mg/dL, Normal 150-199 mg/dL, Borderline high 200-499 mg/dL, High >499 mg/dL, Very high Performed By: #### 5 5454-3 #### [facility] CLIA [id number] [facility]0 [place] [id number] [place] T4 Free SerPl-mCncon 025 Free T4 [Mass/Vol] 1.5 ng/dL Normal 0.9-1.7 [facility] Comment on above: Order Comment: Specdarlyn john Type: BLOOD SPECIMEN Ordering Facility: External Submitter Address: , , Performed By: #### 5 5454-3 #### [facility] CLIA [id number] [address] [place] [address] [place] TSH SerPl-aCncon 02-24-2025 TSH Qn 0.191 m[IU]/L Low 0.270-4.200 [facility] Comment on above: Order Comment: Speci john Type: BLOOD SPECIMEN Ordering Facility: External Submitter Address: , , Performed By: #### 5 5454-3 #### [facility] CLIA [id number] [address] [place], [place] [id number] [facility] Emergency Department Summary on 01-19-2025 Emergency Department Summary [facility] Medical Records Department [address] [place] [address] Emergency Department Summary 01/19/25 MR#: [id number] Acct: [id number] Name: INÉS DUMAS Rep #: [id number] : 1970 54 From: Levy Allen DO PCP: BECK Balderas Status:REG ER Location: ED HPI History of Present Illness Chief Complaint: Upper Extremity Injury Narrative Narrative: Patient is a 54-year-old female with past medical history of depression, hypothyroidism who presents to the emergency department the chief complaint of right wrist pain. States that she had an injury about 6 weeks ago after she moved into a new house and noted that there were new sliding glass doors placed and she states that she had been trying to open them up and noted that she injured her wrist. She states that she followed with her PCP who ordered an x-ray and did not show acute findings. She states that yesterday she noted that she had a vein bubbled up around this area in her wrist below her thumb and was concerned that this was a blood clot. States that when she woke up this was gone and was concerned that it may have burst. Patient states that she has been trying to wrap her wrist and this has not helped. States that she has been also more anxious than normal as she recently lost her mother. Patient denies any history of blood clots. [facility] Medical History delivery delivered Hysterectomy planned Depression Hypothyroidism Allergy/AdvReac Type Severity Reaction Status Date / Time No Known Allergies Allergy Verified 01/19/25 07:19 Surgical History Total knee replacement status Social History Smoking Status: Never smoker ROS ROS ED ROS Narrative Constitutional: Denies fevers, chills Neurological: Denies any numbness, weakness, tingling Musculoskeletal: Complains of right wrist pain as noted above Skin: Denies any rashes or lesions EXAM Physical Exam Narrative Exam Narrative: General: Patient lying in bed rest comfortably did not appear to be in acute distress Head: Atraumatic, normocephalic Eyes: PERRL bilaterally, EOMI black no conjunctival injection noted Neck: Soft, supple, trachea midline Cardiovascular: Regular rate and rhythm Musculoskeletal: Positive Sima's test on the right Extremities: +5/5 strength noted in the bilateral upper and lower extremities, radial pulse +2/4 in the bilateral extremities, no pedal edema no exam Neurological: Patient following commands and that she was at [facility] year is 2024. Sensation gross intact in the median, ulnar and radial nerve distribution bilaterally Skin: Warm, dry, intact no rashes or lesions noted Const Vital Signs: 01/19/25 07:19 Temperature 97.9 F Temperature Source Temporal Pulse Rate 76 Respiratory Rate 16 Blood Pressure 144/72 H Blood Pressure Mean 96 Pulse Ox 100 Oxygen Delivery Method Room Air MDM MDM MDM Narrative Medical decision making narrative: Patient is a 54-year-old female who presented to the emergency department the chief complaint of right wrist pain. On the differential diagnose includes but not limited to to de Quervain tenosynovitis, wrist sprain. I discussed with her that there is low risk that she has a blood clot in this area as she has no history and her pain is reproducible with Sima test. Advised her that we will place her in thumb spica splint and she should use NSAIDs for pain control. She was encouraged that this should improve over the next week or so. She was advised to follow-up with orthopedic team in the outpatient setting which she was referred to. She was also advised to follow-up with her primary care physician in the outpatient setting. She is agreeable this plan all question concerns answered she was discharged home in stable condition Discharge Plan Triage Chief Complaint: Upper Extremity Injury ED Provider: Levy Allen Dx/Rx/DC Orders Clinical Impression: De Quervain's disease (tenosynovitis) Primary Care Provider: Ck Rai Referrals: Ck Rai, ORTHOTIC/PROSTHETIC CLINICIAN-C [Primary Care Provider] - Mary Fuentes MD [Med Staff - Active Staff] - Activity Restrictions/Additional Instructions: Wear thumb spica splint as discussed you can remove this for showering. You should use ice or heat in this area as well whichever makes this feel better. Take NSAIDs for pain control such as ibuprofen, Aleve, Advil etc. max dose of ibuprofen and 24 hours is 3200 mg. Follow-up with orthopedic team the outpatient setting as well as your primary care physician return with worsening symptoms or any other concerns Print Language: Turkish Disposition Disposition (more content not included)... Normal [facility] XR FOREARM RIGHT 2 VIEWSon 0 12-21-2024 [...] on FriDec 23, 2024 11:06:03 AM EDT [facility] Comment on above: Order Comment: Injur y/Trauma or Illness?:Illness/Other How long have you had these symptoms (acute/chronic)?:Acute Reason for exam?:pain in radial aspect of the arm and wrist after opening a window 2 weeks ago has continued pain and discomfort History of cancer?:n Surgeries, chemotherapy, or radiation?:n Type of Exam?:Initial Additional signs and symptoms?:na MM FOLLOW UP POST CLIP PLACE MENTyonathan 07-21-2024 MM FOLLOW UP POST CLIP PLACEMENT [...] FriJul 23, 2024 3:42 PM by Elio Mobley MD ADDENDUM: Pathology: A. Breast, Right, 6 o'clock, ultrasound-guided biopsy: Breast parenchyma with stromal hyalinization. See comment. No evidence of malignancy. The pathology is benign and concordant with breast imaging findings. There is long-term mammographic stability of this mass compared to prior mammograms. Workstation ID: [id number] Dictated by: ELIO MOBLEY on FriJul 21, 2024 2:15:57 PM EST Transcribed by: ELIO MOBLEY on FriJul 21, 2024 2:15:57 PM EST Finalized by: ELIO MOBLEY on FriJul 21, 2024 2:15:57 PM EST Normal [facility] TISSUE EXAMon 07-21-2024 TISSUE EXAM Surgical Pathology R eport Case: [id number] Authorizing Provider: Nancy Fleming MD Collected: 07/21/2024 11:17 AM Ordering Location: [facility] Received: 07/21/2024 11:55 AM Ultrasound Pathologist: Rosie [...] run), 07/21/2024 JK/IT/LM Gross examination performed at: [facility] - [address] [place] [address] Microscopic examination is performed. Normal [facility] Comment on above: Performed By: #### 4 7015 #### [place] [address] Adriano Ocampo M.D. [id number] US AXILLA ONLY RIGHT (BREAST RELATED)on 07-21-2024 US AXILLA ONLY RIGHT (BREAST RELATED) EXAMINATION: US BREAST BIOPSY RIGHT; US AXILLA ONLY RIGHT (BREAST RELATED); MM FOLLOW UP POST CLIP PLACEMENT INDICATION: Dx: N63.41 (Subareolar mass of right breast) 54-year-old female presents for ultrasound-guided biopsy of right breast findings. COMPARISON: Recent mammogram June 2024. Prior mammograms February 2024, 2022, 2017, 2017, and 2016. TECHNIQUE AND FINDINGS: Review of prior mammograms [...] FriJul 23, 2024 3:42 PM by Elio Mobley MD ADDENDUM: Pathology: A. Breast, Right, 6 o'clock, ultrasound-guided biopsy: Breast parenchyma with stromal hyalinization. See comment. No evidence of malignancy. The pathology is benign and concordant with breast imaging findings. There is long-term mammographic stability of this mass compared to prior mammograms. Workstation ID: [id number] Dictated by: ELIO MOBLEY on FriJul 21, 2024 2:15:57 PM EST Transcribed by: ELIO MOBLEY on FriJul 21, 2024 2:15:57 PM EST Finalized by: ELIO MOBLEY on FriJul 21, 2024 2:15:57 PM EST Normal [facility] Comment on above: Order Comment: Injur [...] June 2024. Prior mammograms February 2024, 2022, 2018, 2017, and 2016. TECHNIQUE AND FINDINGS: Review of prior mammograms [...] FriJul 23, 2024 3:42 PM by Elio Mobley MD ADDENDUM: Pathology: A. Breast, Right, 6 o'clock, ultrasound-guided biopsy: Breast parenchyma with stromal hyalinization. See comment. No evidence of malignancy. The pathology is benign and concordant with breast imaging findings. There is long-term mammographic stability of this mass compared to prior mammograms. Workstation ID: [id number] Dictated by: ELIO MOBLEY on FriJul 21, 2024 2:15:57 PM EST Transcribed by: ELIO MOBLEY on FriJul 21, 2024 2:15:57 PM EST Finalized by: ELIO MOBLEYEL on FriJul 21, 2024 2:15:57 PM EST [facility] Comment on above: Order Comment: Injur y/Trauma or Illness?:Illness/Other How long have you had these symptoms (acute/chronic)?:Acute Reason for exam?:Right breast biopsy Type of Exam?:Subsequent/Follow-up Additional signs and symptoms?:None BI TRANSFER OF OUTSIDE FILMS on 07-05-2024 BI TRANSFER OF OUTSIDE FILMS Outside images for comparison or treatment purposes, not interpreted by Radiologists. [facility] BI TRANSFER OF OUTSIDE FILMS Outside images for comparison or treatment purposes, not interpreted by Radiologists. [facility] BI TRANSFER OF OUTSIDE FILMS Outside images for comparison or treatment purposes, not interpreted by Radiologists. [facility] Study Interpretation of outs jeovany studyon 07-05-2024 [...] 8:25 am; 07/02/2024 8:30 am ACCESSION NUMBER(S): [id number]; [id number] ORDERING CLINICIAN: CK RAI INDICATION: ,N63.14 Unspecified [...] of the right breast by a registered painter ski edge. A retroareolar mass lesion is seen at [...] any future breast imaging appointments, please call [phone] ([phone]). MACRO: None Signed by: Carlin Betancourt 07/02/2024 8:43 AM Dictation workstation: [id number] [facility] BI US BREAST LIMITED RIGHTon 07-02-2024 BI US BREAST LIMITED RIGHT Interpreted By: Carlin Betancourt, STUDY: BI MAMMO BILATERAL DIAGNOSTIC TOMOSYNTHESIS; BI US BREAST LIMITED RIGHT; 07/02/2024 8:25 am; 07/02/2024 8:30 am ACCESSION NUMBER(S): [id number]; [id number] ORDERING CLINICIAN: CK RAI INDICATION: ,N63.14 Unspecified [...] of the right breast by a registered painter ski edge. A retroareolar mass lesion is seen at [...] any future breast imaging appointments, please call [phone] ([phone]). MACRO: None Signed by: Carlin Betancourt 07/02/2024 8:43 AM Dictation workstation: [id number] Abnormal [facility] DBT Breast - bilateral diagn osticon 07-02-2024 Radiology Study observation (narrative) [facility] Work Phone: No Panel InformationOrdered By: Carlin Betancourt on 07-02-2024 Interpretation and review of laboratory results Abnormal [facility] Work Phone: [facility] Work Phone: No Panel Informationon 07-02 Suspicious solid heterogeneous mass lesion, at the 6 o'clock position of the retroareolar area of the right breast. BI-RADS CATEGORY: BI-RADS Category: 4 Suspicious. Recommendation: Surgical Consultation and Biopsy. Recommended Date: Immediate. Laterality: Right For any future breast imaging appointments, please call [phone] ([phone]). MACRO: None Signed by: Carlin Betancourt 07/02/2024 8:43 AM Dictation workstation: [id number] [facility] MMODAL Interpreted By: Carlin Sharif, STUDY: BI MAMMO BILATERAL DIAGNOSTIC TOMOSYNTHESIS; BI US BREAST LIMITED RIGHT; 07/02/2024 8:25 am; 07/02/2024 8:30 am ACCESSION NUMBER(S): [id number]; [id number] ORDERING CLINICIAN: CK RAI INDICATION: ,N63.14 Unspecified [...] of the right breast by a registered painter ski edge. A retroareolar mass lesion is seen at about the 6 o'clock position. This lesion is solid and heterogeneous, and measures 2 x 2.4 x 1.7 cm. The central area is hypoechoic. [facility] Carlin Betancourt MD - 07/02/2024 Interpreted By: Carlin Betancourt, STUDY: BI MAMMO BILATERAL DIAGNOSTIC TOMOSYNTHESIS; BI US BREAST LIMITED RIGHT; 07/02/2024 8:25 am; 07/02/2024 8:30 am ACCESSION NUMBER(S): [id number]; [id number] ORDERING CLINICIAN: CK RAI INDICATION: ,N63.14 Unspecified [...] of the right breast by a registered painter ski edge. A retroareolar mass lesion is seen at [...] any future breast imaging appointments, please call [phone] ([phone]). MACRO: None Signed by: Carlin Betancourt 07/02/2024 8:43 AM Dictation workstation: [id number] [facility] Work Phone: US Breast - right limitedon 07-02-2024 Radiology Study observation (narrative) [facility] Work Phone: H AND Serjio 02-27-2024 [...] Affect: Mood (more content not included)... Normal [facility] MM SCREENING OTILIO BILATERALo n 02-23-2024 MM SCREENING OTILIO BILATERAL EXAMINATION: MM SCREENING OTILIO BILATERAL INDICATION: Annual screening exam. Dx: Z12.31 (Screening mammogram for breast cancer) ORDERING SYSTEM PROVIDED HISTORY: Screening mammogram for breast cancer, TECHNOLOGIST PROVIDED HISTORY: ORDERING SYSTEM PROVIDED DIAGNOSIS CODES: Z12.31 Screening mammogram for breast cancer COMPARISON: Mammograms 2022, 2017, 2016, and 2016. TECHNIQUE: Standard mammographic views, 2D and 3D. [...] sent to the patient regarding the results. [facility], along with the National [employer] Cancer Network, the [employer], and [facility], recommend annual screening mammograms for women age 40 and older. Workstation ID: [id number] Dictated by: ELIO MOBLEY on FriFeb 25, 2024 11:27:19 AM EDT Transcribed by: ELIO MOBLEY on FriFeb 25, 2024 11:27:19 AM EDT Finalized by: ELIO MOBLEY on FriFeb 25, 2024 11:27:19 AM EDT Normal [facility] SCREEN DIGITAL BREAST TOMOon 12-23-2022 SCREEN DIGITAL BREAST OTILIO [address] [address] Name: INÉS DUMAS Phys: MARY HERRERA M.D. : [birth year] Age: 52 Sex: F Acct: [id number] Loc: RAD MAMM Exam Date: 12/23/22 Status: REG CLI Radiology No.: Unit Number: [id number] Exam # Type/Exam [id number] MAMMO / SCREEN DIGITAL BREAST OTILIO #[id number] - SCREEN DIGITAL BREAST OTILIO BILATERAL DIGITAL SCREENING MAMMOGRAM 3D/2D WITH CAD: 12/23/2022 CLINICAL: Annual Screening. Comparison is made to exams dated: 05/05/2018 mammogram, 11/14/2016 mammogram, and 11/30/2015 mammogram - [facility]. Additional films were requested but not [...] results. Electronically signed by: Elliott Noyola M.D. mws/javi:01/09/2023 13:04:58 It Professional(s): RT Vivek(Gabe)(Miles), [facility] BI-RADS: 1 Negative REPORT SIGNATURE ON FILE Reported By: ELLIOTT NOYOLA M.D. << Signature on File>> Reported By: ELLIOTT NOYOLA M.D. Signed By: ELLIOTT NOYOLA M.D. Tests performed at: [address] [address] Normal [facility] ESTRADIOLon 12-05-2022 ESTRADIOL < 25.0 Normal [facility] Comment on above: Result Comment: This Estradiol assay ([facility]) may show falsely elevated results when measuring estradiol in patients who are taking Fulvestrant (Faslodex). Non- Female Ref Ranges Follicular Phase: 12.4-233 pg/mL Luteal Phase : 22.3-341 pg/mL Ovulatory Phase : 41.0-398 pg/mL Post-Menopausal : <5.00-138 pg/mL First Trimester: 154 to 3243 pg/mL Second Trimester: 1561 to 87394 pg/mL Third Trimester: 8525 to >49203 pg/mL Performed By: #### L 304.0195, L304.0185, L304.0170, L304.0180 #### [facility] - LABORATORY [address] [place] [address] FOLATE 12-05-2022 FOLATE 13.3 ng/mL Normal 4.8-24.2 [facility] Comment on above: Performed By: #### L 304.0195, L304.0185, L304.0170, L304.0180 #### [facility] - LABORATORY [address] [place] [id number] [place] [address] 12-05-2022 FSH 72.24 mIU/mL [facility] Comment on above: Result Comment: Fema le Ref. Ranges Follicular Phase: 3.5 - 12.5 mIU/mL Ovulation Phase: 4.7 - 21.5 mIU/mL Luteal Phase : 1.7 - 7.7 mIU/mL Post-Menopause : 25.8-134.8 mIU/mL Performed By: #### L 304.0195, L304.0185, L304.0170, L304.0180 #### [facility] - LABORATORY [address] [place] [address] [facility] 12-05-2022 LH 57.17 mIU/mL [facility] Comment on above: Result Comment: Fema le Ref. Ranges Follicular Phase : 2.4 - 12.6 mIU/mL Ovulatory Peak : 14.0 - 95.6 mIU/mL Luteal Phase : 1.0 - 11.4 mIU/mL Post-Menopausal : 7.7 - 58.5 mIU/mL Performed By: #### L 304.0195, L304.0185, L304.0170, L304.0180 #### - LABORATORY [address] [place] [address] PROGESTon 12-05-2022 PROGEST 0.31 ng/mL Normal [facility] Comment on above: Result Comment: Non- Female Ref Ranges Follicular Phase: 0.06-0.893 ng/mL Ovulation Phase: 0.12-12.0 ng/mL Luteal Phase : 1.8-23.9 ng/mL Post-Menopausal : <0.05-0.13 ng/mL Female Ref Ranges 1st Trimester: 11.0-44.3 ng/mL 2nd Trimester: 25.4-83.3 ng/mL 3rd Trimester: 58.7-214 ng/mL Performed By: #### L 304.0195, L304.0185, L304.0170, L304.0180 #### - LABORATORY [address] [place] [address] VIT. B12on 12-05-2022 Cobalamin (Vitamin B12) [Mass/Vol] 1422 pg/mL High 232-1245 [facility] Comment on above: Performed By: #### L 304.0195, L304.0185, L304.0170, L304.0180 #### - LABORATORY [address] [place] [address] VITAMIN Don 12-05-2022 VITAMIN D 42.6 ng/mL Normal 30-100 [facility] Comment on above: Performed By: #### L 304.0195, L304.0185, L304.0170, L304.0180 #### - LABORATORY [address] [place] [address] XytA8Qgi 11-16-2022 HbA1c (Bld) [Mass fraction] 5.8 % Normal 4.3-6.1 [facility] Comment on above: Result Comment: Estimated Average Glucose: HgbA1C % mg/dL 4.0 68 5.0 97 6.0 125 7.0 154 8.0 183 9.0 212 10.0 240 Source: [employer] web site, 2017. Performed By: #### L 200.2000 #### [facility] - LABORATORY [address] [place] [address] CBCon 11-15-2022 BASO# 0.00 x10(3) Normal 0.00-0.10 [facility] Comment on above: Performed By: #### L 304.0195, L304.0185, L304.0170, L304.0180 #### [facility] - LABORATORY [address] [place] [address] Basophils/100 WBC (Bld) 0.6 % Normal 0.0-1.0 [facility] Comment on above: Performed By: #### L 304.0195, L304.0185, L304.0170, L304.0180 #### [facility] - LABORATORY [address] [place] [address] EOS# 0.10 x10(3) Normal 0.00-0.54 [facility] Comment on above: Performed By: #### L 304.0195, L304.0185, L304.0170, L304.0180 #### [facility] - LABORATORY [address] [place] [address] Eosinophils/100 WBC (Bld) 2.1 % Normal 0.5-4.9 [facility] Comment on above: Performed By: #### L 304.0195, L304.0185, L304.0170, L304.0180 #### - LABORATORY [address] [place] [address] Erythrocyte distribution width (RBC) [Ratio] 13.8 % Normal 12.5-15.7 [facility] Comment on above: Performed By: #### L 304.0195, L304.0185, L304.0170, L304.0180 #### [facility] - LABORATORY [address] [place] [address] Hematocrit (Bld) [Volume fraction] 41.3 % Normal 36.0-48.0 [facility] Comment on above: Performed By: #### L 304.0195, L304.0185, L304.0170, L304.0180 #### [facility] [address] [place] [address] Hemoglobin (Bld) [Mass/Vol] 13.5 g/dL Normal 12.0-16.0 [facility] Comment on above: Performed By: #### L 304.0195, L304.0185, L304.0170, L304.0180 #### [facility] [address] [place] [address] LYMPH# 1.70 x10(3) Normal 1.00-3.50 [facility] Comment on above: Performed By: #### L 304.0195, L304.0185, L304.0170, L304.0180 #### [facility] [address] [place] [address] Lymphocytes/100 WBC (Bld) 29.1 % Normal 16.0-48.0 [facility] Comment on above: Performed By: #### L 304.0195, L304.0185, L304.0170, L304.0180 #### [facility] [address] [place] [address] MCH (RBC) [Entitic mass] 28.3 pg Low 28.5-32.9 [facility] Comment on above: Performed By: #### L 304.0195, L304.0185, L304.0170, L304.0180 #### [facility] [address] [place] [address] MCHC (RBC) [Mass/Vol] 32.7 g/dL Low 33.0-36.0 [facility] Comment on above: Performed By: #### L 304.0195, L304.0185, L304.0170, L304.0180 #### [facility] [address] [place] [address] MCV (RBC) [Entitic vol] 86.6 fL Normal 80.0-99.0 [facility] Comment on above: Performed By: #### L 304.0195, L304.0185, L304.0170, L304.0180 #### [facility] [address] [place] [address] MONO# 0.40 x10(3) Normal 0.30-0.80 [facility] Comment on above: Performed By: #### L 304.0195, L304.0185, L304.0170, L304.0180 #### [facility] [address] [place] [address] Monocytes/100 WBC (Bld) 6.4 % Normal 4.3-11.2 [facility] Comment on above: Performed By: #### L 304.0195, L304.0185, L304.0170, L304.0180 #### [facility] [address] [place] [address] 399[address] NEUT# 3.50 x10(3) Normal 1.40-6.50 [facility] Comment on above: Performed By: #### L 304.0195, L304.0185, L304.0170, L304.0180 #### [facility] [address] [place] [address] Neutrophils/100 WBC (Bld) 61.8 % Normal 45.0-73.0 [facility] Comment on above: Performed By: #### L 304.0195, L304.0185, L304.0170, L304.0180 #### - LABORATORY [address] [place] [address] Platelet mean volume (Bld) [Entitic vol] 8.2 fL Normal 7.5-9.5 [facility] Comment on above: Performed By: #### L 304.0195, L304.0185, L304.0170, L304.0180 #### - LABORATORY [address] [place] [address]647 PLT 309 X10(3) Normal 150-450 [facility] Comment on above: Performed By: #### L 304.0195, L304.0185, L304.0170, L304.0180 #### - LABORATORY [address] [place] [address]185 RBC 4.77 x10(6) Normal 3.30-5.00 [facility] Comment on above: Performed By: #### L 304.0195, L304.0185, L304.0170, L304.0180 #### - LABORATORY [address] [place] [address] 36467 WBC 5.7 x10(3) Normal 4.5-10.0 [facility] Comment on above: Performed By: #### L 304.0195, L304.0185, L304.0170, L304.0180 #### [facility] [address] [place] [address] 17026 CMPon 11-15-2022 A:G RATIO 1.74 Normal 1.1-2.5 [facility] Comment on above: Performed By: #### L 100.0040, L304.0162, L304.0140, L100.0005 #### [facility] [address] [place] [address] 94010 Albumin [Mass/Vol] 4.7 g/dL Normal 3.5-5.2 [facility] Comment on above: Performed By: #### L 100.0040, L304.0162, L304.0140, L100.0005 #### [facility] [address] [place] [address] 84777 ALK. PHOS 124 U/L High 35-105 [facility] Comment on above: Performed By: #### L 100.0040, L304.0162, L304.0140, L100.0005 #### [facility] [address] [place] [address] 18474 ALT [Catalytic activity/Vol] 14 U/L Normal 5-33 [facility] Comment on above: Performed By: #### L 100.0040, L304.0162, L304.0140, L100.0005 #### [facility] [address] [place] [address] 41809 Anion gap [Moles/Vol] 13.9 mmol/L Low 15-22 [facility] Comment on above: Performed By: #### L 100.0040, L304.0162, L304.0140, L100.0005 #### [facility] [address] [place] [address] 17364 AST [Catalytic activity/Vol] 13 U/L Normal 5-32 [facility] Comment on above: Performed By: #### L 100.0040, L304.0162, L304.0140, L100.0005 #### [facility] [address] [place] [address] 81129 Bilirubin [Mass/Vol] 0.3 mg/dL Normal 0.2-1.2 Count includes the [facility] Comment on above: Performed By: #### L 100.0040, L304.0162, L304.0140, L100.0005 #### - LABORATORY [address] [place] [address] 68216 Calcium [Mass/Vol] 9.5 mg/dL Normal 8.6-10.0 [facility] Comment on above: Performed By: #### L 100.0040, L304.0162, L304.0140, L100.0005 #### [facility] [address] [place] [address] 39249 Chloride [Moles/Vol] 102 mmol/L Normal 98-107 Count includes the [facility] Comment on above: Performed By: #### L 100.0040, L304.0162, L304.0140, L100.0005 #### [facility] [address] [place] [address] 45906 CO2 [Moles/Vol] 26 mmol/L Normal 22-29 [facility] Comment on above: Performed By: #### L 100.0040, L304.0162, L304.0140, L100.0005 #### [facility] [address] [place] [address] 58806 Creatinine [Mass/Vol] 1.06 mg/dL High 0.50-0.90 [facility] Comment on above: Performed By: #### L 100.0040, L304.0162, L304.0140, L100.0005 #### [facility] [address] [place] [address] 84791 eGFR if AFR TAMMY > 60 ml/min/1.73m2 Normal [facility] Comment on above: Result Comment: eGFR >= [...] #### L 100.0040, L304.0162, L304.0140, L100.0005 #### [facility] [address] [place] [address] 58073 eGFR nonAFR Tammy 54 Normal [facility] Comment on above: Performed By: #### L 100.0040, L304.0162, L304.0140, L100.0005 #### [facility] [address] [place] [address] 28116 Globulin (S) [Mass/Vol] 2.7 g/dL Normal 1.5-4.5 [facility] Comment on above: Performed By: #### L 100.0040, L304.0162, L304.0140, L100.0005 #### [facility] [address] [place] [address] 36995 Glucose [Mass/Vol] 91 mg/dL Normal 74-106 [facility] Comment on above: Performed By: #### L 100.0040, L304.0162, L304.0140, L100.0005 #### [facility] [address] [place] [address] 89501 Potassium [Moles/Vol] 3.9 mmol/L Normal 3.5-5.0 [facility] Comment on above: Performed By: #### L 100.0040, L304.0162, L304.0140, L100.0005 #### - LABORATORY [address] [place] [address] 94783 Protein [Mass/Vol] 7.4 g/dL Normal 6.4-8.3 [facility] Comment on above: Performed By: #### L 100.0040, L304.0162, L304.0140, L100.0005 #### [facility] [address] [place] [address] 33770 Sodium [Moles/Vol] 138 mmol/L Normal 135-145 [facility] Comment on above: Performed By: #### L 100.0040, L304.0162, L304.0140, L100.0005 #### [facility] [address] [place] [address] 70225 Urea nitrogen [Mass/Vol] 16 mg/dL Normal 6-20 [facility] Comment on above: Performed By: #### L 100.0040, L304.0162, L304.0140, L100.0005 #### [facility] [address] [place] [address] 95978 Free T4on 11-15-2022 Free T4 [Mass/Vol] 1.48 ng/dL Normal 0.93-1.7 [facility] Comment on above: Performed By: #### L 100.0040, L304.0162, L304.0140, L100.0005 #### [facility] [address] [place] [address] 44429 LIPID PANELon 11-15-2022 Cholesterol [Mass/Vol] 180 mg/dL Normal 130-200 [facility] Comment on above: Performed By: #### L 100.0040, L304.0162, L304.0140, L100.0005 #### - LABORATORY [address] [place] [address] 67754 Cholesterol in HDL [Mass/Vol] 66 mg/dL Normal [facility] Comment on above: Result Comment: Meghan onal [...] L304.0162, L304.0140, L100.0005 #### [facility] [address] [place] [address] 22861 Cholesterol in LDL [Mass/Vol] 93 mg/dL Normal [facility] Comment on above: Result Comment: LDL: OPTIMAL FOR PEOPLE AT VERY HIGH RISK <70 OPTIMAL <100 NEAR OPTIMAL 100-129 BORDERLINE HIGH 130-159 HIGH 160-189 VERY HIGH >=190 Source: 2008 NCEP ATP III, ADA Guidelines Reviewed: October, Performed By: #### L 100.0040, L304.0162, L304.0140, L100.0005 #### [facility] [address] [place] [address] 10447 Cholesterol in VLDL [Mass/Vol] 21 mg/dL Normal 6-40 [facility] Comment on above: Performed By: #### L 100.0040, L304.0162, L304.0140, L100.0005 #### [facility] [address] [place] [address] 01987 LDL/HDL RATIO 1.4 Normal [facility] Comment on above: Performed By: #### L 100.0040, L304.0162, L304.0140, L100.0005 #### [facility] [address] [place] [address] 13708 Triglyceride [Mass/Vol] 103 mg/dL Normal [facility] Comment on above: Result Comment: TRIG : DESIRABLE: <150 mg/dL Performed By: #### L 100.0040, L304.0162, L304.0140, L100.0005 #### [facility] [address] [place] [address] 06631 TSHon 11-15-2022 TSH 0.88 uIU/mL Normal 0.270-4.200 [facility] Comment on above: Performed By: #### L 100.0040, L304.0162, L304.0140, L100.0005 #### [facility] [address] [place] [address] ANES Rema 04-09-2018 ANES POST HNO ID: [id number] thor: Lucius MondragonSergladyse: AnesthesiologyAuthor Type: AnesthesiologistType: Anesthesia PostOpFiled: 04/09/2018 12:13 [...] 09, 2018 : 12:13 PM PAGER/CONTACT #: [phone] [facility] ANES PREOPon 04-09-2018 ANES PREOP HNO ID: [id number] thor: Lucius GiancarloService: AnesthesiologyAuthor Type: AnesthesiologistType: Anesthesia PreOpFiled: 04/09/2018 7:05 AMNote [...] 39.2 04/09/2018Potassium 3.5 04/03/2018ANES DOS/PREOP NOTE: Vitals: [id number]: 130/78Pulse: 74Resp: 16Temp: 37 ?C (98.6 ?F)SpO2: [...] cervical- INSERTION OF IUD 01/11/2014- IUD REMOVAL ([facility] DEPT)_*FL 09/2017- LIGATE FALLOPIAN TUBE Tubal ligationFAMILY [...] contains updated information obtained within 48 hours ofSurgery/Procedure.TODD OLIVERA: Lucius Mondragon MD PATIENT NAME: Inés KauriDATE: April 09, 2018 : 7:05 AM CSN: [id number] Normal [facility] CBCon 04-09-2018 Erythrocyte distribution width Auto Ratio (RBC) 13.2 % Normal 11.5-15.0 [facility] Comment on above: Performed By: #### C BC ####[place] [address] Hematocrit Auto Volume Fraction (Bld) 39.2 % Normal 36.0-46.0 [facility] Comment on above: Performed By: #### C BC ####[place] [address] Hemoglobin mass conc (Bld) 12.4 g/dL Normal 11.5-15.5 [facility] Comment on above: Performed By: #### C BC ####[place] [address] MCH Auto Entitic mass (RBC) 28.8 pG Normal 26.0-34.0 [facility] Comment on above: Performed By: #### C BC ####[place] [address] MCHC Auto mass conc (RBC) 31.6 g/dL Normal 30.5-36.0 [facility] Comment on above: Performed By: #### C BC ####[place] [address] MCV Auto Entitic volume (RBC) 91.0 fL Normal 80.0-100.0 [facility] Comment on above: Performed By: #### C BC ####[place] [address] Platelet mean volume Auto Entitic volume (Bld) 9.8 fL Normal 9.0-12.7 [facility] Comment on above: Performed By: #### C BC ####[facility] [address]xc[phone] Platelets Auto #/vol (Bld) 303 10*3/uL Normal 150-400 [facility] Comment on above: Performed By: #### C BC ####[facility] Pesuzgwwbm9558 [phone] RBC Auto #/vol (Bld) 4.31 10*6/uL Normal 3.90-5.[address] [facility] Comment on above: Performed By: #### C BC ####[facility] [address] [place] [address] WBC Auto #/vol (Bld) 7.71 10*3/uL Normal 3.70-11.[address] [facility] Comment on above: Performed By: #### C BC ####[facility] [address] [place] [phone] Confirm Blood Typeon 018 ABO/RH(D) Positive [facility] Comment on above: Performed By: #### C ONABO ####[facility] Loaf[phone] NURSING PROGon 04-09-2018 Protein mass conc HNO ID: [id number] thor: Babatunde (Rn) Dex, DANAervice: NursingAuthor Type: Registered NurseType: Nursing Progress NoteFiled: 04/09/2018 5:05 PMNote Text:Pt up to bathroom voided 250cc clear orange urine. Amt reported to [place]. Pt ok to be discharged to home Normal [facility] Protein mass conc HNO ID: [id number] Author: Babatunde (Rn) Dex, RN Service: Nursing Author Type: Registered Nurse Type: Nursing Progress Note Filed: 04/09/2018 4:18 PM Note Text: bladderscan = 528ml. Dr Bailey notified. Will re-scan bladder in 1 hr [facility] Protein mass conc HNO ID: [id number] Author: Babatunde (Rn) Dex, RN Service: Nursing Author Type: Registered Nurse Type: Nursing Progress Note Filed: 04/09/2018 3:28 PM Note Text: Pt reports able to void more substantial amounts of urine Normal [facility] Protein mass conc HNO ID: [id number] thor: Jennifer (Rn) Bernarda Mahoneyice: (none)Author Type: Registered NurseType: Nursing Progress NoteFiled: 04/09/2018 2:16 PMNote Text:Up to bathroom gait steady Unable to void.Up amb around nursing station with boyfriend. GaitSteady. No [id number] Tried to Vd unable vd sm amt 100 ml bladder scanned for [id number] Bailey. Updated Dr on pt status. And bladder scan of650 ml. stated to give her till 1600. If unable to void, straight cath,Call And update her. If voids, scan if 200 ml or less she can go home.1425 Reported off to [facility] Protein mass conc HNO ID: [id number] thor: Beba (Rn) DANA Gilmoreervice: (none)Author Type: Registered NurseType: Nursing Progress NoteFiled: [...] stable - preliminary report to [facility] - AWilfredo HAMMOND. [facility] OPERATIVE NOon 04-09-2018 OPERATIVE NO HNO ID: [id number] thor: Mercedes Caslilas: GynecologyAuthor Type: PhysicianType: Operative ReportFiled: 04/17/2018 4:56 PMNote Text:ADDENDUM:PLEASE NOTE THIS WAS A TOTAL LAPAROSCOPIC HYSTERECTOMY with bilateralsalpingectomy and cystoscopy- [facility] OPERATIVE NO HNO ID: [id number] thor: Mercedes Neyhart McIntoshService: GynecologyAuthor Type: PhysicianType: Operative ReportFiled: 04/27/2018 9:46 AMNote Text:CHAPERON OPERATIVE/PROCEDURE REPORTLOG ID: [id number]/Procedure Date: 04/09/2018Incision/Procedu re Start Time: 7:58 AMIncision Close/Procedure End Time: 9:12 AMSurgeon(s)/Proceduralis t(s) and Sheet Turner(s):Surgeon(s) and Role: * Mercedes Bailey - Primary [...] cervix was serially dilated to allowplacement of Senior Contracts Administrator and left in place throughout the laparoscopicportion [...] used to perform thecolpotomy circumferentially along the public works inspector cup. The uterus andcervix were then delivered [...] 09, 2018 : 9:27 AM PAGER/CONTACT #: [facility] PT EDon 04-09-2018 PT ED HNO ID: [id number] thor: Babatunde (Rn) DANA Kowalskiervice: NursingAuthor Type: [...] Signed By: Babatunde Kowalski RN In Department: [facility] PT ED HNO ID: [id number] thor: Elliott (Dutch) DANA Mikeervice: (none)Author Type: Registered NurseType: Patient EducationFiled: 04/09/2018 6:24 AMNote Text:PRE OP LEARNING ASSESSMENTPROCEDURE/SURGE RY: lap hysterectomyREADINESS TO LEARNCOGNITIVE ABILITY: Alert and orientedMOTIVATION TO LEARN: InterestedFAMILY SUPPORT: High - Very involved in pt carePATIENT LEARNS BEST BY: Individual InstructionFACTORS AFFECTING LEARNING: NonePHYSICAL LIMITATIONS AFFECTING LEARNING: NoneElectronically Signed By: Elliott Mike RN In Department: [facility] SURGICAL PATHOLOGYon 018 SURGICAL PATHOLOGY [facility]: [id number] Physician: MERCEDES BAILEY MD _FINAL DIAGNOSIS1. Uterus, excision:Cervix - [...] does not reveal a second white cylindricaldevice. Flight Service Specialist sections are submitted as follows: A1 12 o'clockcervix, A2 6 o'clock cervix, A3 anterior uterine wall full thickness, O9bqkwemudl uterine wall full thickness, A5 largest myometrial mass, F9qskyhq largest myometrial mass, A7 first fallopian tube described withfimbriated end totally submitted, A8 second fallopian tube described withfimbriated end totally submitted.EZEQUIEL/abdi/04/09/20 18Gross examination performed at [facility], [address] [place], [place] [address]Patient ID #: [id number] of Report: 04/22/2018Date of Procedure: 04/09/2018Date of Receipt: 04/09/2018Submitted by: MERCEDES BAILEY MDLocation: MEORDiagnostic interpretation performed at [facility], [address] [place] [address]. Normal [facility] Comment on above: Performed By: #### T SCR30 ####[facility] [address] [place], [place] [id number] NURSING PROGon 04-06-2018 Protein mass conc HNO ID: [id number] thor: Annel (Rn) DANA Bakerervice: NursingAuthor Type: Registered NurseType: Nursing Progress NoteFiled: [...] Considerations:N/AChart Check:DANA Koenigeptember 2017 10:02 AM Normal [facility] Confirm Blood Typeon 018 ABO/RH(D) Positive [facility] Comment on above: Performed By: #### C ONABO ####[facility] Hjkqjnwzmu1723 [address] Performed By: #### T SCR30 ####[facility] [address] [place] [address] HOSPon 03-17-2018 HOSP Patient:Childers RN: Height:5' 2.5(1.588 [...] 3.7HEMA* 39.2 % 04/09/2018 46.0 36.0Progress Notes (HOME THEATER SPECIALIST [facility]):Ave Shore RN 04/06/2018 10:14 AM SignedPatient had lab work drawn 04/03/18. Surgery scheduled for 04/09/18. Pleasereview.Ave Shore RNProgress Notes ([facility]):Noemy Reyes LPN 04/03/2018 2:47 PM [place], patient is there now and she would like to have thyroidlabs done. last thyroid labs were done in July 2017orders pending.Tyler Hall APRN.DATABASE MARKETING ANALYST 04/03/2018 4:45 PM SignedHas patient been having symptoms relatable to her thyroid recently? Typically wecheck thyroid levels once a year unless patient is symptomatic or when there nikita dosage change. Insurance may not cover labs if ordered now.Tyler Hall APRN.CNPLaurel Keke ROE 04/06/2018 9:47 AM SignedLabs were completed/ordered per Dr. Villanueva. Normal [facility] Vital Signs Date Time Vital Sign Value Performing Clinician Facility 01-19-2025 07:19-0400 Body height 157.48 cm Ck Rai NP-C Work Phone: [facility] 01-19-2025 07:19-0400 Body mass index (BMI) [Ratio] 43.2 kg/m2 Ck Rai NP-C Work Phone: [facility] 01-19-2025 07:19-0400 Body temperature 97.9 [degF] Ck Rai NP-C Work Phone: [facility] 01-19-2025 07:19-0400 Body weight 107.27 kg Ck Swihart ORTHOTIC/PROSTHETIC CLINICIAN-C Work Phone: [facility] 01-19-2025 07:19-0400 Diastolic blood pressure 72 mm[Hg] Ck Swihart ORTHOTIC/PROSTHETIC CLINICIAN-C Work Phone: [facility] 01-19-2025 07:19-0400 Heart rate 76 /min Ck Swihart ORTHOTIC/PROSTHETIC CLINICIAN-C Work Phone: [facility] 01-19-2025 07:19-0400 Respiratory rate 16 /min Ck Swihart ORTHOTIC/PROSTHETIC CLINICIAN-C Work Phone: [facility] 01-19-2025 07:19-0400 SaO2% (BldA) [Mass fraction] 100 % Ck Swihart ORTHOTIC/PROSTHETIC CLINICIAN-C Work Phone: [facility] 01-19-2025 07:19-0400 Systolic blood pressure 144 mm[Hg] Ck Swihart ORTHOTIC/PROSTHETIC CLINICIAN-C Work Phone: [facility] 07-12-2024 11:35-0500 Body height 157.5 cm Nancy Fleming MD Work Phone: [facility] 07-12-2024 11:35-0500 Body mass index (BMI) [Ratio] 42.25 kg/m2 Nancy Fleming MD Work Phone: [facility] 07-12-2024 11:35-0500 Body weight 104.78 kg Nancy Fleming MD Work Phone: [facility] 07-12-2024 11:35-0500 Diastolic blood pressure 83 mm[Hg] Nancy Fleming MD Work Phone: [facility] 07-12-2024 11:35-0500 Heart rate 77 /min Nancy Fleming MD Work Phone: [facility] 07-12-2024 11:35-0500 SaO2% (BldA) [Mass fraction] 99 % Nancy Fleming MD Work Phone: [facility] 07-12-2024 11:35-0500 Systolic blood pressure 121 mm[Hg] Nancy Fleming MD Work Phone: [facility] 01-30-2024 08:02-0400 Body height 157.5 cm Evelyn Tovar MD Work Phone: [facility] 01-30-2024 08:02-0400 Body mass index (BMI) [Ratio] 38.92 kg/m2 Evelyn Tovar MD Work Phone: [facility] 01-30-2024 08:02-0400 Body weight 96.53 kg Evelyn Tovar MD Work Phone: [facility] 01-30-2024 08:02-0400 Diastolic blood pressure 85 mm[Hg] Evelyn Tovar MD Work Phone: [facility] 01-30-2024 08:02-0400 Heart rate 64 /min Evelyn Tovar MD Work Phone: [facility] 01-30-2024 08:02-0400 Respiratory rate 20 /min Evelyn Tovar MD Work Phone: [facility] 01-30-2024 08:02-0400 Systolic blood pressure 127 mm[Hg] Evelyn Tovar MD Work Phone: [facility] 12-29-2023 15:32-0400 Body height 157.5 cm Ines Nelson DATABASE MARKETING ANALYST Work Phone: [facility] 12-29-2023 15:32-0400 Body mass index (BMI) [Ratio] 37.68 kg/m2 Ines Nelson DATABASE MARKETING ANALYST Work Phone: [facility] 12-29-2023 15:32-0400 Body weight 93.44 kg Ines Nelson DATABASE MARKETING ANALYST Work Phone: [facility] 12-29-2023 15:32-0400 Diastolic blood pressure 78 mm[Hg] Ines Nelson DATABASE MARKETING ANALYST Work Phone: [facility] 12-29-2023 15:32-0400 Heart rate 79 /min Ines Nelson CNP Work Phone: [facility] 12-29-2023 15:32-0400 SaO2% (BldA) [Mass fraction] 97 % Ines Nelson DATABASE MARKETING ANALYST Work Phone: [facility] 12-29-2023 15:32-0400 Systolic blood pressure 115 mm[Hg] Ines Nelson DATABASE MARKETING ANALYST Work Phone: [facility] Encounters Encounter Date Encounter Type Care Provider Facility Start: 05-11-2025 End: 05-11-2025 ambulatory PARIS EDUARDO Facility:[facility] Start: 04-21-2025 End: 04-21-2025 ambulatory ELIAS DONIS Facility:[facility] Start: 04-21-2025 End: 04-21-2025 [facility] Facility:[facility] Start: 04-21-2025 End: 04-21-2025 ambulatory [facility] Facility:[facility] Start: 03-31-2025 End: 03-31-2025 ambulatory SUJATHA VILLANUEVA Facility:[facility] Start: 03-30-2025 End: 03-30-2025 Orders Only Noemy Weston MD Work Phone: [facility] Comment on above: Pain (Primary Dx) Start: 03-17-2025 End: 03-17-2025 Clinical Support Vonnie Smith Work Phone: [facility] Comment on above: Asymmetrical sensori neural hearing loss (Primary Dx) Start: 02-24-2025 End: 02-24-2025 ambulatory CK RAI Facility:[facility] Start: 01-19-2025 End: 01-19-2025 Emergency department patient visit Ck SOLARES Work Phone: -Emergency Department Work Phone: Start: 12-21-2024 End: 12-21-2024 ambulatory CK RAI [facility] Start: 12-17-2024 End: 12-21-2024 Clinical Support Vonnie Flores AuD Work Phone: [facility] Comment on above: Asymmetrical sensori neural hearing loss (Primary Dx) Start: 08-26-2024 End: 08-30-2024 Clinical Support Vonnie Flores AuD Work Phone: [facility] Comment on above: Asymmetrical sensori neural hearing loss (Primary Dx) Start: 07-23-2024 End: 07-27-2024 Clinical Support Vonnie Flores AuD Work Phone: [facility] Comment on above: Asymmetrical sensori neural hearing loss (Primary Dx) Start: 07-21-2024 End: 07-21-2024 Coordination of care plan Kristi Claudio RN Patient Navigator Start: 07-21-2024 End: 07-21-2024 ambulatory [facility] Start: 07-13-2024 End: 07-13-2024 ambulatory PROVIDER NOT IN SYSTEM [facility] Start: 07-12-2024 End: 07-12-2024 Office outpatient new 45 minutes Nancy Fleming MD Work Phone: [facility] Comment on above: Subareolar mass of r ight breast (Primary Dx); Mass of lower inner quadrant of right breast; Abnormal mammogram Start: 07-12-2024 End: 07-12-2024 ambulatory NANCY FLEMING [facility] Start: 07-05-2024 End: 07-05-2024 Subsequent hospital visit by physician Rad External Film EF RAD EXTERNAL FILM VIRTUAL Comment on above: Arrived Start: 07-05-2024 End: 07-05-2024 ambulatory [facility] Start: 07-02-2024 End: 07-02-2024 Subsequent hospital visit by physician [address] Comment on above: Unspecified lump in the right breast, lower inner quadrant Start: 07-02-2024 End: 07-02-2024 ambulatory [facility] Start: 06-18-2024 End: 06-22-2024 Clinical Support Vonnie Smith Work Phone: [facility] Comment on above: Asymmetrical sensori neural hearing loss (Primary Dx) Start: 04-27-2024 End: 04-27-2024 ambulatory ANGUS CHARLES [facility]ulatory Start: 04-16-2024 End: 04-20-2024 ambulatory VONNIE FLORES [facility] Start: 02-27-2024 End: 02-27-2024 ambulatory MOLLY [facility] Start: 02-23-2024 End: 02-23-2024 ambulatory CK [facility] Start: 02-21-2024 End: 02-21-2024 ambulatory PROVIDER NOT IN SYSTEM [facility] Start: 01-30-2024 End: 01-30-2024 Office outpatient new 60 minutes Evelyn Tovar MD Work Phone: [facility] Comment on above: Excessive daytime sl eepiness (Primary Dx); Excessive sleepiness Start: 01-30-2024 End: 01-30-2024 ambulatory [facility] Start: 12-29-2023 End: 12-29-2023 Office outpatient new 30 minutes Ines Nelson CNP Work Phone: [facility] Comment on above: Family history of co deanna cancer in mother (Primary Dx); Encounter for screening colonoscopy; Chronic constipation Start: 12-03-2023 End: 12-03-2023 ambulatory PROVIDER NOT IN SYSTEM [facility] Start: 12-23-2022 ambulatory MARY Jamesoni ty:[facility] Start: 12-05-2022 ambulatory STEPHAN Miles ALMANZAR Facil ity:[facility] Start: 11-15-2022 ambulatory PHYSICIAN MISC Facility :[facility] Start: 04-24-2021 End: 04-25-2021 ambulatory NICHOLAS [facility] Start: 04-19-2021 End: 04-20-2021 ambulatory [facility]AS [facility] Start: 04-17-2021 End: 04-18-2021 [facility] Start: 04-12-2021 End: 04-13-2021 ambulatory NICHOLAS GILES [facility] Start: 04-05-2021 End: 04-06-2021 ambulatory NICHOLAS GILES [facility] Start: 04-03-2021 End: 04-04-2021 [facility] Start: 04-02-2021 End: 04-03-2021 ambulatory [facility] Start: 03-26-2021 End: 03-27-2021 ambulatory NICHOLAS GILES [facility] Start: 03-22-2021 End: 03-23-2021 ambulatory [facility] Start: 03-20-2021 End: 03-21-2021 ambulatory [facility] Start: 03-15-2021 End: 03-16-2021 ambulatory NICHOLAS GILES [facility] Start: 03-13-2021 End: 03-14-2021 ambulatory NICHOLAS GILES [facility] Start: 03-12-2021 End: 03-13-2021 ambulatory NICHOLAS GILES [facility] Start: 03-08-2021 End: 03-09-2021 ambulatory NICHOLAS GILES [facility] Start: 03-05-2021 End: 03-06-2021 ambulatory NICHOLAS GILES [facility] Start: 02-27-2021 End: 02-28-2021 ambulatory NICHOLAS GILES [facility] Start: 02-26-2021 End: 02-27-2021 ambulatory NICHOLAS GILES [facility] Start: 02-22-2021 End: 02-23-2021 ambulatory NICHOLAS GILES [facility] Start: 02-19-2021 End: 02-20-2021 ambulatory NICHOLAS GILES [facility] Start: 2021 End: 02-16-2021 ambulatory NICHOLAS GILES [facility] Start: 02-13-2021 End: 02-14-2021 ambulatory NICHOLAS GILES [facility] Start: 02-12-2021 End: 02-13-2021 ambulatory NICHOLAS GILES [facility] Start: 02-07-2021 End: 02-08-2021 ambulatory NICHOLAS GILES [facility] Start: 04-09-2018 End: 04-09-2018 Patient encounter MERCEDESROGER BAILEY [facility] Procedures Date Procedure Procedure Detail Performing Clinician Start: 02-24-2025 Lipid 1996 panel - S kurt or Plasma Noemy Weston MD Work Phone: Start: 07-05-2024 End: 07-05-2024 Study Interpretation of outside study Ck Rai HOME THEATER SPECIALIST-DATABASE MARKETING ANALYST Work Phone: Start: 07-02-2024 Us breast uni real t kuldeep with image limited Ck Rai HOME THEATER SPECIALIST-DATABASE MARKETING ANALYST Work Phone: Start: 07-02-2024 End: 07-02-2024 Mammography Ck Rai HOME THEATER SPECIALIST- DATABASE MARKETING ANALYST Work Phone: Start: 06-02-2024 Thyrotropin [Units/v olume] in Serum or Plasma [facility] 1 Start: 02-27-2024 Colonoscopy Vonnie Smith Work Phone: Start: 02-23-2024 Mammography Vonnie Smith Work Phone: Start: 01-09-2024 Thyrotropin [Units/v olume] in Serum or Plasma Evelyn Tovar MD Work Phone: Start: 12-23-2022 Mammography Ines colindres CNP Work Phone: Start: 02-19-2021 INTENSIVE OUTPATIENT / DAY TREATMENT NICHOLAS GILES Start: 04-03-2018 Antibody screen MERCEDES ISRAEL BAILEY Comment on above: Performed By: #### T [id number] ####[facility] [id number] [place], [place] [phone] Plan of Treatment Date Care Activity Detail Author Start: 02-26-2034 Screening for malign ant neoplasm of colon [facility] Start: 02-24-2030 Lipid panel Lipid Screening [facility] Start: 02-25-2028 [facility] Start: 12-21-2025 Depression screening using PHQ-9 (Patient Health Questionnaire 9) score Depression Screening/Follow-Up (PHQ-2/9) [facility] Start: 11-15-2025 Diabetes mellitus screening Diabetes Screening [facility] Start: 09-15-2025 End: 09-15-2025 Clinical Support 09/15/2025 10:00 AM EST Clinical Support [facility] Physician [facility] [address] [place] [address] Medical Office Building, [address] [place] [address] Vonnie Flores AuD [address] [facility] 5th [place] [phone] [facility] Start: 07-02-2025 Screening for malign ant neoplasm of breast [facility] Start: 06-02-2025 Thyroid stimulating hormone measurement TSH Level [facility] Start: 03-31-2025 End: 03-31-2025 Patient encounter procedure Radiology Comment on above: XR HAND GENERAL 3V P A/LAT/OBL RIGHT right wrist pain Start: 03-17-2025 End: 03-17-2025 Clinical Support 03/17/2025 10:00 AM EDT Clinical Support [facility] Audiology [address] [place] [address] Medical Office Building, [address] [place] [address] Vonnie Flores AuD [address] [facility] 5th [place], [place] [phone] [facility] Physician [facility] Start: 03-14-2025 COVID-19 Vaccine () COVID-19 Vaccine () [facility] Start: 03-14-2025 Influenza vaccination Influenza Vacc ine (#1) [facility] Start: 03-03-2025 End: 03-03-2025 Patient encounter procedure 03/03/2025 10:00 AM EDT Office Visit [address] [phone] Elisabeth Alicia, DATABASE MARKETING ANALYST [facility] [place] [address] [facility] Start: 02-22-2025 Screening for malign ant neoplasm of breast Mammogram [facility] Start: 01-19-2025 [facility] Start: 01-08-2025 Thyroid stimulating hormone measurement TSH Level [facility] Start: 10-27-2024 End: 10-27-2024 Patient encounter procedure 10/27/2024 2:30 PM EDT Office Visit [facility] [address] [place] [address] Medical [place] [phone] Angus Charles CNP [address] [place] [address] [facility] Start: 09-30-2024 End: 09-30-2024 Clinical Support 09/30/2024 10:30 AM EDT Clinical Support [facility] Physician [facility] Audiology [address] [place] [address] Medical Office [facility], [address]th [place] [phone] Vonnie Flores, Sarah [address] [place] [address] 5th [place] [address] [facility] Start: 09-20-2024 Depression Remission Assessment (PHQ9) Depression Remission Assessment (PHQ9) [facility] Start: 09-10-2024 End: 09-10-2024 Patient encounter procedure 09/10/2024 11:40 AM EST Office Visit [address] [phone] Ck Rai, DATABASE MARKETING ANALYST [address] [place] [address] [facility] Start: 08-10-2024 End: 08-10-2024 Clinical Support 08/10/2024 3:00 PM EST Clinical Support [facility] Physician [facility] Audiology [address] [facility] Medical Office [facility], [address] [place] [phone] Vonnie Flores AuD [address] [address] [facility] Start: 07-27-2024 End: 07-27-2024 Patient encounter procedure 07/27/2024 9:15 AM EST Office Visit [facility] [address] [place] [address] Office [facility], [address] [place] [phone] Nancy Fleming MD [address] [place] [address] [facility] Start: 07-26-2024 End: 07-26-2024 Patient encounter procedure 07/26/2024 1:30 PM EST Office Visit [facility] [address] [facility] Office [facility], [address] [place] [phone] Nancy Fleming MD [address] [place] [address] [facility] Start: 07-23-2024 End: 07-23-2024 Clinical Support 07/23/2024 9:00 AM EST Clinical Support [facility] [address] [facility] Office [facility], [address] [place] [phone] Vonnie Flores AuD [address] [address] [facility] Start: 03-14-2024 COVID-19 Vaccine ( season) COVID-19 Vaccine ( season) [facility] Start: 03-14-2024 Influenza vaccination [facility] Start: 01-30-2024 End: 01-29-2025 In-Center Sleep Study (Non-Sleep Provider Only) In-Center Sleep Study (Non-Sleep Provider Only) Sleep Center Routine Excessive daytime sleepiness Expected: 01/30/2024 (Approximate), Expires: 01/29/2025 [facility] Service Area Work Phone: Comment on above: Expected: 01/30/2024 (Approximate), Expires: 01/29/2025 Start: 01-30-2024 End: 01-29-2025 Multiple sleep latency test Multiple sleep latency test Sleep Center Routine Excessive daytime sleepiness Expected: 01/30/2024 (Approximate), Expires: 01/29/2025 [facility] Work Phone: Comment on above: Expected: 01/30/2024 (Approximate), Expires: 01/29/2025 Start: 01-30-2024 End: 01-29-2025 Opiate/Opioid/Benzo Prescription Compliance Opiate/Opioid/Benzo Prescription Compliance Lab Routine Excessive daytime sleepiness Expected: 01/30/2024 (Approximate), Expires: 01/29/2025 [facility] Work Phone: Comment on above: Expected: 01/30/2024 (Approximate), Expires: 01/29/2025 Start: 01-28-2024 Subsequent hospital visit by physician 01/28/2024 Hospital Encounter [facility] [address] [place] [address] Molly Betancourt MD [address] [place] [address] [facility] Start: 01-22-2024 End: 01-22-2024 Patient encounter procedure 01/22/2024 4:15 PM EDT Appointment [facility] [address] [facility] [place] [address] [facility] Mammography Start: 01-07-2024 End: 01-07-2024 Patient encounter procedure 01/07/2024 3:30 PM EDT Office Visit [facility] [address] [place] [phone] YoselynWendieMartha, ANKIT [address] [place] [address] [facility] Start: 12-24-2023 Screening for malign ant neoplasm of breast Mammogram [facility] Start: 03-14-2023 COVID-19 Vaccine ( season) COVID-19 Vaccine ( season) [facility] Start: 12-04-2020 Screening for malign ant neoplasm of cervix Cervical Cancer Screening [facility] Start: 02-16-2020 Administration of he rpes zoster vaccine Zoster Vaccines (1 of 2) [facility] Start: 02-16-2020 Pneumococcal vaccination Pneum ococcal Vaccine (1 of 1 - PCV) [facility] Start: 02-16-2020 Pneumococcal Vaccine : 50+ (1 of 1 - PCV) Pneumococcal Vaccine: 50+ (1 of 1 - PCV) [facility] Start: 02-16-2020 Pneumococcal Vaccine : Age 50+ (1 of 1 - PCV) Pneumococcal Vaccine: Age 50+ (1 of 1 - PCV) [facility] Start: 02-16-2020 Screening for malign ant neoplasm of colon Flexible sigmoidoscopy [facility] Start: 02-16-2020 Shingrix Vaccine (1 of 2) Shingrix Vaccine (1 of 2) [facility] Start: 02-16-2020 Zoster Vaccines (1 of 2) Zoste r Vaccines (1 of 2) [facility] Start: 2015 Screening for malign ant neoplasm of colon [facility] Start: 07-14-2000 Tetanus vaccination Tetanus: Every 1 0yrs [facility] Start: 02-16-2000 Screening for malign ant neoplasm of cervix [facility] Start: 1991 Screening for malign ant neoplasm of cervix [facility] Start: 07-15-1990 DTaP/Tdap/Td Vaccine s (2 - Tdap) DTaP/Tdap/Td Vaccines (2 - Tdap) [facility] Start: 07-15-1990 Urine microalbumin profile DTaP,Tdap,Td Vaccine (1 - Tdap) [facility] Start: 1989 Hepatitis B Vaccine (1 of 3 - 19+ 3-dose series) Hepatitis B Vaccine (1 of 3 - 19+ 3-dose series) [facility] Start: 1989 Hepatitis B Vaccines (1 of 3 - 19+ 3-dose series) Hepatitis B Vaccines (1 of 3 - 19+ 3-dose series) [facility] Start: 02-16-1988 Annual PCP Team Nurse Clinician jw Disease Visit Annual PCP Team Chronic Disease Visit [facility] Start: 02-16-1988 Anxiety Screening Anxiety Screening [facility] Start: 02-16-1988 Hepatitis C screening Hepatitis C Sc reening [facility] Start: 02-16-1988 HIV screening HIV Screening [facility] Start: 1985 HIV screening HIV Screening [facility] Start: 1973 History and physical examination, annual for health maintenance Wellness Visit [facility] Start: 1971 MMR Vaccines (1 of 1 - Standard series) MMR Vaccines (1 of 1 - Standard series) [facility] Start: 1970 HIV screening HIV Screening [facility] Start: 1970 Lipid panel Lipid Panel [facility] Start: 1970 Screening for malign ant neoplasm of colon [facility] Start: 1970 Yearly Adult Physical Yearly Adult P hysical [facility] Colonoscopy COLONOSCOPY Fami ly history of colon cancer in mother Chronic constipation [facility] End: 09-10-2025 MG Breast - right Diagnostic Mammography Diagnostic Otilio Right Imaging Routine Subareolar mass of right breast Abnormal mammogram 1 Occurrences starting 07/12/2024 until 09/10/2025 [facility] Comment on above: 1 Occurrences starti ng 07/12/2024 until 09/10/2025 End: 07-12-2025 US Axilla - right US Axilla Only Right (Breast Related) Imaging STAT Subareolar mass of right breast Abnormal mammogram 1 Occurrences starting 07/12/2024 until 07/12/2025 [facility] Comment on above: 1 Occurrences starti ng 07/12/2024 until 07/12/2025 End: 07-12-2025 US Guidance for biopsy of Breast - right US Breast Biopsy Right Imaging STAT Subareolar mass of right breast Abnormal mammogram 1 Occurrences starting 07/12/2024 until 07/12/2025 [facility] Work Phone: Comment on above: 1 Occurrences starti ng 07/12/2024 until 07/12/2025 End: 04-29-2026 XR Wrist - right 4 Views XR WRIST INJURY 4V PA/LAT/OBL/SCAPH RIGHT Radiology Routine Pain 1 Occurrences starting 03/30/2025 until 04/29/2026 [facility] Work Phone: Comment on above: 1 Occurrences starti ng 03/30/2025 until 04/29/2026 Immunizations Immunization Date Immunization Notes Care Provider Fran long 04-19-2016 influenza virus vacc ine, unspecified formulation Noemy Weston MD Work Phone: [facility] 07-14-1990 tetanus and diphther ia toxoids, adsorbed, preservative free, for adult use (2 Lf of tetanus toxoid and 2 Lf of diphtheria toxoid) Vonnie Smith Work Phone: [facility] Payers Date Payer Category Payer Self-pay 2022 Medicaid [id number] 2022 Medicaid (Managed Care) 1.2. [id number] 2022 Medicaid [id number] 2019 Unknown [id number] 1970 Unknown [id number] 2.16. 840.1.643069.3.579.2.204 1970 Unknown [id number] 2.16. 840.1.328381.3.579.2.204 1970 Unknown [id number] 2.16. 840.1.812410.3.579.2.204 1970 Unknown [id number] 2.16. 840.1.097775.3.579.2.204 1970 Unknown [id number] 2.16. 840.1.788032.3.579.2.204 1970 Unknown [id number] 2.16. 840.1.856262.3.579.2. 1970 Unknown [id number] 2.16. 840.1.838617.3.579.2.204 1970 Unknown [id number] 2.16. 840.1.093984.3.579.2. 1970 Unknown [id number] 2.16. 840.1.142087.3.579.2.204 1970 Unknown [id number] 2.16. 840.1.575468.3.579.2. 1970 Unknown [id number] 2.16. 840.1.043275.3.579.2. 1970 Unknown [id number] 2.16. 840.1.118521.3.579.2. 1970 Unknown [id number] 2.16. 840.1.579986.3.579.2.204 1970 Unknown [id number] 2.16. 840.1.192522.3.579.2. 1970 Unknown [id number] 2.16. 840.1.592487.3.579.2. 1970 Unknown [id number] 2.16. 840.1.667342.3.579.2. 1970 Unknown [id number] 2.16. 840.1.682016.3.579.2.204 1970 Unknown [id number] 2.16. 840.1.075461.3.579.2. 1970 Unknown [id number] 2.16. 840.1.820037.3.579.2. 1970 Unknown [id number] 2.16. 840.1.299451.3.579.2. 1970 Unknown [id number] 2.16. 840.1.515558.3.579.2.204 1970 Unknown [id number] 2.16. 840.1.820386.3.579.2.204 1970 Unknown [id number] 2.16. 840.1.183876.3.579.2.204 1970 Unknown [id number] 2.16. 840.1.651185.3.579.2.204 1970 Unknown [id number] 2.16. 840.1.698301.3.579.2.204 1970 Unknown [id number] 2.16. 840.1.780172.3.579.2.204 1970 Unknown [id number] 2.16. 840.1.861746.3.579.2.204 1970 Unknown [id number] 2.16. 840.1.744869.3.579.2.204 1970 Unknown [id number] 2.16.8 40.1.776490.3.579.2.1244 1970 Unknown [id number] 2.16.8 40.1.973047.3.579.2.3 1970 Unknown [id number] 2.16.8 40.1.622631.3.579.2.1243 1970 Unknown [id number] 2.16. 840.1.500306.3.579.2.1244 1970 Unknown [id number] 2.16. 840.1.508945.3.579.2.124 1970 Unknown [id number] 2.16. 840.1.641896.3.579.2.124 1970 Unknown [id number] 2.16. 840.1.788727.3.579.2.124 1970 Unknown [id number] 2.16. 840.1.145479.3.579.2.900 1970 Unknown [id number] 2.16. 840.1.975348.3.579.2.900 1970 Unknown [id number] 2.16. 840.1.233879.3.579.2.900 1970 Unknown [id number] 2.16. 840.1.944363.3.579.2.900 1970 Unknown [id number] 2.16. 840.1.470581.3.579.2.900 1970 Unknown [id number] 2.16. 840.1.935997.3.579.2.900 1970 Unknown [id number] 2.16. 840.1.533657.3.579.2.90 1970 Unknown [id number] 2.16. 840.1.899188.3.579.2.90 1970 Unknown [id number] 2. 840.1.577863.3.579.2. 1970 Unknown [id number] 2. 840.1.032768.3.579.2.90 1970 Unknown [id number] 2. 840.1.834065.3.579.2. 1970 Unknown [id number] 2. 840.1.270498.3.579.2.902 1970 Unknown [id number] 2. 840.1.431884.3.579.2. 1970 Unknown [id number] 2.16 840.1.888131.3.579.2.903 1970 Unknown [id number] 2.16. 840.1.989684.3.579.2.90 1970 Unknown [id number] 2.16 840.1.880617.3.579.2.90 1970 Unknown [id number] 2.16 840.1.675593.3.579.2.90 1970 Unknown [id number] 2.16. 840.1.889315.3.579.2.903 1970 Unknown [id number] 2.16. 840.1.008947.3.579.2.903 1970 Unknown [id number] 2.16. 840.1.787234.3.579.2.903 Unknown [id number] 2.16.8 40.1.661107.3.579.2.283 Unknown [id number] 2.16.8 40.1.881358.3.579.2.283 Unknown [id number] 2.16.8 40.1.605577.3.579.2.283 Unknown [id number] Unknown [id number] 2.16.8 40.1.279265.3.579.2.462 Social History Date Type Detail Facility Start: 11-24-2015 End: 12-29-2023 Tobacco smoking status NHIS Ex-smoker [facility] Start: 07-14-1999 End: 03-28-2015 History of tobacco use Current smoker [facility] Start: 07-14-1999 End: 03-28-2015 History of tobacco use Cigarette Smoker [facility] Start: 11-24-2015 End: 12-29-2023 Tobacco use and exposure Smokeless tobacco non-user [facility] Start: 12-29-2023 Alcohol intake Current drinker of alcohol (finding) [facility] Start: 06-21-2020 End: 12-10-2023 History of Social function [facility] Start: 06-21-2020 End: 12-10-2023 Tobacco use panel [facility] Start: 12-29-2023 Alcohol Comment rare [facility] Start: 1970 Sex Assigned At Not on file [facility] Start: 11-14-2023 Gender identity Identifies as female gender (finding) [facility] Start: 11-14-2023 Sexual orientation Heterosexual (finding) [facility] Start: 06-07-2024 End: 12-30-2024 Alcoholic beverage intake Ex-drinker (finding) [facility] Within the last year , have you been afraid of your partner or ex-partner? No [facility] Are you now , , , , never or living with a partner? Living with partner [facility] How often to you hav e a drink containing alcohol? Monthly or less [facility] How many standard drinks containing alcohol do you have on a typical day? 1 or 2 [facility] How often do you hav e 6 or more drinks on 1 occasion? Never [facility] How hard is it for y ou to pay for the very basics like food, housing, medical care, and heating Somewhat hard [facility] Do you feel stress - tense, restless, nervous, or anxious, or unable to sleep at night because your mind is troubled all the time - these days [OSQ] Only a little [facility] Start: 06-14-2012 Minutes of Exercise per Session Not on file [facility] (I/We) worried wheth er (my/our) food would run out before (I/we) got money to buy more. Never true [facility] Start: 04-27-2024 Tobacco Comment Off and on had to sneak and hide from ex [facility] Start: 03-03-2024 Alcohol Comment Very rarely [facility] Start: 01-20-2024 End: 07-02-2024 Exposure to SARS-CoV-2 (event) Not sure [facility] Start: 01-19-2025 Tobacco smoking status NHIS Never smoked tobacco (finding) [facility] Start: 1970 Sex Assigned At Female [facility] Start: 05-20-2018 Alcoholic beverage intake Current non-drinker of alcohol (finding) [facility] Medical Equipment Procedure Code Equipment Code Equipment Origin al Text Equipment Identifier Dates Marker 15ga T3 Biopsy Site [employer] - [id number], [id number] Start: 07-21-2024 Goals Date Patient Goal Desired Activity /State Personal health goal Comment on above: Formatting of this n ote might be different from the original. Good Nutrition: Make healthier food choices Reduce portion size Follow meal plan Functional Status Date Assessment Result Facility 06-14-2014 Are you deaf, or do you have serious difficulty hearing No 06/14/2014 6:59 PM Rebecca Millard RN No [facility] 06-14-2014 Are you blind, or do you have serious difficulty seeing, even when wearing glasses No 06/14/2014 6:59 PM Rebecca Millard RN No [facility] 06-14-2014 Do you have serious difficulty walking or climbing stairs No 06/14/2014 6:59 PM Rebecca Millard RN No [facility] 06-14-2014 Do you have difficul ty dressing or bathing No 06/14/2014 6:59 PM Rebecca Millard RN No [facility] 06-14-2014 Because of a physica l, mental, or emotional condition, do you have difficulty doing errands alone such as visiting a physician's office or shopping No 06/14/2014 6:59 PM Rebecca Millard RN No [facility] Mental Status Date Assessment Result Facility 06-14-2014 Because of a physica l, mental, or emotional condition, do you have serious difficulty concentrating, remembering, or making decisions No 06/14/2014 6:59 PM Rebecca Millard RN No [facility] Clinical Notes 12-29-2023 to 05-11-2025 Vonnie Flores, AuD - 03/17/2025 10:43 AM Vonnie Hayes, AuD - 01/28/2025 11:47 AM Vonnie Hayes, AuD - 08/26/2024 10:16 AM Kristi Stewart RN - 07/23/2024 11:19 AM EST Note Date & Type Note Facility 05-11-2025 Note HNO ID: [id number] Author: PARIS EDUARDO PA-C Service: ? Author Type: Physician Sheet Turner Type: Progress Notes Filed: 05/11/2025 16:46 Note Text: May 11, 2025 CHIEF COMPLAINT: bilateral wrist pain HPI: Inés Dumas is a 55 year old RHD female who presents to clinic with bilateral wrist pain L>R. She has had this for a few months. She thought it was from opening large windows. The pain affects the radial side of her wrist. It previously radiated up her forearm. She has tried using a thumb spica brace. She has tried oral steroids which somewhat helped temporarily. She has tried ice and heat. She has tried Mobic. She has had left ring trigger finger release in the past in [place]. 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 There are two tendons, the abductor pollicis longus (APL) and extensor pollicis brevis (EPB) that pass through a tunnel (the extensor retinaculum) to get into the forearm. This tunnel has a very limited space for the tendons to fit. If overuse or injury causes the tendons to swell or the tunnel to shrink, the tendons do not fit and this causes pain and inflammation. The standard treatment involves activity modification plus or minus splinting and corticosteroid injection. Recent studies have found about 80% of patients get better with a corticosteroid injection into the first dorsal compartment. We know that certain patients have anatomic variants (multiple slips of the APL or separate compartments for the APL and EPB) that make them less likely to respond to an injection or non-operative treatment in general. Patients who are unsatisfied with non-operative treatment are offered surgery to release the first dorsal compartment. She would like to try an injection for her bilateral wrists today. No guarantees or warranties were provided; she voiced understanding of the risks and benefits and wishes to proceed with our agreed upon plan. Follow up in 6 weeks but if doing well may cancel. Additional Injections: R extensor compartment 1 for de Quervain's tenosynovitis 05/11/2025 3:16 PM The procedure site was prepped in the usual sterile fashion. Medications: 10 mg triamcinolone acetonide 10 mg/mL Anesthetics: 1 mL lidocaine (PF) 10 mg/mL (1 %) Outcome: tolerated well, no immediate complications Post-injection instructions were reviewed with the patient and the patient voiced understanding of these instructions. Informed Consent Consent Obtained: Verbal [place] Protocol A moment to CARE was completed. SIGN IN Personnel directly involved with the procedure wore the appropriate PPE. Special Equipment: N/A Patient/Surrogate Stated/Verified: Patient name, Date of , Relevant allergies and Intended procedure TIME OUT No relevant labs, photos, and/or imaging studies were applicable for review. Correct side/site marked and visible. Medications required for procedure verified. No fire risk assessment and interventions applicable. No implant(s) inserted. Additional Injections: L extensor compartment 1 for de Quervain's tenosynovitis 05/11/2025 3:16 PM The procedure site was prepped in the usual sterile fashion. Medications: 10 mg triamcinolone acetonide 10 mg/mL Anesthetics: 1 mL lidocaine (PF) 10 mg/mL (1 %) Outcome: tolerated well, no immediate complications Post-injection instructions were reviewed with the patient and the patient voiced understanding of these instructions. Informed Consent Consent Obtained: Verbal [place] Protocol A moment to CARE was completed. SIGN IN Personnel directly involved with the procedure wore the appropriate PPE. Special Equipment: N/A Patient/Surrogate Stated/Verified: Patient name, Date of , Relevant allergies and Intended procedure TIME OUT No relevant labs, photos, and/or imaging studies were applicable for review. Correct side/site marked and visible. Medications required for procedure verified. No fire risk assessment and interventions applicable. No implant(s) inserted. OBJECTIVE: There were no vitals filed for this visit. There is no height or weight on file to calculate BMI. General: NAD Eyes: Pupils not pinpointed, not overly dilated, anicteric Neck: Full range of motion Cardiovascular: Palpable pulse and brisk capillary refill (<2 sec) to all fingers Lymphatic: Inspection of the arm/hand reveals no lymphedema Respiratory: Respirations even and unlabored, no audible wheezing Integumentary: Inspection of skin reveals no breaks or obvious lesions except for those noted below. Neuro: Intact sensation to light touch over the median, ulnar, and radial nerve distributions. Psychiatric: No obvious anxiety, well kempt, normal affect. Appropriate response to pain (more content not included)... [facility] 04-21-2025 Note HNO ID: [id number] Author: ELIAS DONIS OD Service: ? Author Type: Hematology Nurse Type: Progress Notes Filed: 04/21/2025 13:16 Note Text: 1. Punctate keratitis, bilateral (Primary) No FB on exam, either eye +mild punctate staining OU Recommended artificial tears as needed for comfort and a few more days off of contact lenses Follow-up as needed I have confirmed and edited as necessary the relevant HPI, ophthalmic history, ROS, and the neuro exam findings as obtained by others. I have seen and examined Inés Dumas. I have discussed the case and the management of this patient's care with the Resident/Fellow, if applicable. I also have reviewed and agree with the assessment and plan as stated above and agree with all of its relevant components. Elias Donis, LAUREN April 21, 2025 1:14 PM [facility] 04-21-2025 Note HNO ID: [id number] Author: MARLEEN SCOTT APRN.DATABASE MARKETING ANALYST Service: ? Author Type: Nurse Practitioner Type: Progress Notes Filed: 04/21/2025 16:16 Note Text: Con opthCC: Patient presents with: Establish Care: Establish Care HPI Inés Dumas is a 55 year old female who presents today for establishing care. Recording using [employer] software for draft documentation of the visit was discussed with the patient/authorized site safety representative; all questions welcomed and answered. Patient/authorized site safety representative agreed to proceed Inés Dumas is a 55-year-old female with a history of hypothyroidism, premenstrual tension syndrome, dysthymic disorder, fibromyalgia, and ADHD, presenting for an initial visit and evaluation of weight management, and medication management. 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 - Tried various braces; current smaller braces provide some relief. - Completed a course of prednisone. - Considering corticosteroid injections; has an appointment scheduled for the with a specialist for this Weight Management: - History of significant weight loss with Adipex 10 years ago; recent attempts with Adipex unsuccessful as ordered by [facility] - Concerns about weight gain with current medications. - Taking topiramate 50 mg in the morning and 100 mg at night to manage binge eating. - Engaged in regular exercise at [employer]. - Struggles with vegetable intake. Hypothyroidism: - Managed with levothyroxine 88 mcg daily; dose decreased twice in recent months. - Last thyroid level check in February. - Family history of thyroid issues in both parents. Prediabetes: Denies increase thirst hunger or urination from her typical baseline Fibromyalgia: - Previously managed well with Cymbalta, which provides relief but causes decreased libido. - Recently started Lexapro 5 mg daily to manage depression and anxiety with fewer sexual side effects. - Taking meloxicam daily for knee and generalized pain. ADHD: - Managed with Vyvanse 50 mg daily; recently restarted after a brief discontinuation as prescribed by [place] [id number] - Previously tried higher doses of Wellbutrin and Zoloft with undesirable side effects. Dysthymic Disorder: - Managed with Wellbutrin 150 mg daily. - Recent medication changes led to increased anxiety and a panic attack, requiring EMS intervention. Feels she is improving now and starting to get back to baseline. Is following with psychiatry at [place] [id number] - no thoughts of harming herself or others - Family history of depression and anxiety in mother. Constipation: - Chronic constipation, exacerbated by Adipex. - Uses a natural supplement to manage symptoms; Metamucil worsens constipation. - denies current constipation, nausea, vomiting, or abdominal pain. REVIEW OF SYSTEMS General: no fevers, no chills, no night sweats, no recurrent infections, no change in appetite, no change in energy, and no significant changes in weight Respiratory: no cough, no wheezing, no shortness of breath, no hemoptysis Cardiovascular: no chest pain, no chest pressure, no palpitations, and no swelling : No history of dysuria, frequency or incontinence Neurologic: No headache, weakness, dizziness, memory loss, syncope. PAST MEDICAL HISTORY Diagnosis Date ADHD (attention deficit hyperactivity disorder) Dysthymic disorder Depression (non-psychotic) Fibromyalgia Premenstrual tension syndromes Unspecified hypothyroidism PAST SURGICAL HISTORY Procedure Laterality Date DELIVERY ONLY 1995 1999 , low cervical HYSTERECTOMY 04/09/2018 LAPAROSCOPIC HYSTERECTOMY TOTAL FOR UTERUS 250 G OR LESS W/REMOVAL TUBE(S) AND/OR OVARY(S) INSERTION OF IUD 01/11/2014 IUD REMOVAL ([facility])_*FL 09/2017 LIG/TRNSXJ FLP TUBE ABDL/VAG APPR UNI/BI Tubal ligation TOTAL KNEE REPLACEMENT Left ALLERGIES Voltaren [Diclofenac] MEDICATIONS escitalopram oxalate (LEXAPRO) 5 mg tablet Take 1 tablet by mouth once daily. VYVANSE 50 mg capsule Take 50 mg by mouth once daily. meloxicam (MOBIC) 7.5 mg tablet Take 1 tablet by mouth once daily. Take with food. topiramate (TOPAMAX) 50 mg tablet 50mg in AM and 100mg in PM - Prescribed by [place] [address] buPROPion XL (WELLBUTRIN XL) 150 mg 24 hr tablet Take 1 tablet by mouth once daily. Cholecalciferol, Vitamin D3, 50 mcg (2,000 unit) cap Take 1 capsule by mouth once daily. levothyroxine (LEVOXYL) 88 mcg tablet Take 1 tablet by mouth once daily. Take on empty stomach. For thyroid. meloxicam (MOBIC ORAL) Take by mouth. FAMILY HISTORY Problem Relation Age of Onset Thyroid Mother Psychiatry Mother depression other (atrial fibrillation) Mother Cervical Cancer Mother Colon Cancer Mother possible mets Ulcerative Colitis Mother Hypertension Father Diabetes Father Cancer Father KIDNEY,lung Thyroid Father Hypertension Maternal (more content not included)... [facility] 03-31-2025 Note HNO ID: [id number] Author: NOEMY WESTON MD Service: ? Author Type: Physician Type: Progress Notes Filed: 04/03/2025 16:04 Note Text: 9-6REFERRING PHYSICIAN: Patient seen at the request of Ck Rai CNP, ANKTI for an opinion and evaluation of right wrist. A copy of this office note was sent electronically with my evaluation and recommendations. CHIEF COMPLAINT: Patient presents with: Right Wrist - New HISTORY OF PRESENT ILLNESS: Inés Dumas is a 55 year old female with a history of bilateral wrist pain. she moved to new place. windows large and stiff. it started after opening window. she had more forearm pain to start. she saw her pcp who got xray forearm. nl. told to ice and rest. she is right handed. 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 she kept re injuring as nanny. she got drug store wrist brace. she went to the ED beginning of February. he did finkelsteins test. positive. they gave longer brace. metal on forearm hurt. now her left thumb hurts. it isn't going away. she gets bilateral wrist pain worse at base of thumbs. she has wraps and braces for night. she takes meloxicam for her knee daily for 3-4 months. it helps her knees. it is 7.5 mg. she is not diabetic. she is borderline. she is working on weight loss. she is on topomax- it is for binge eating. she has lost inches, more than pounds. not exercising as much as food management. she just joined [employer]. no n/t. they hurt all the time. she has tried iced, heated, voltaren gel, no help. PAST MEDICAL HISTORY Diagnosis Date Dysthymic disorder Depression (non-psychotic) Premenstrual tension syndromes Unspecified hypothyroidism PAST SURGICAL HISTORY Procedure Laterality Date DELIVERY ONLY 1995 1999 , low cervical HYSTERECTOMY 04/09/2018 LAPAROSCOPIC HYSTERECTOMY TOTAL FOR UTERUS 250 G OR LESS W/REMOVAL TUBE(S) AND/OR OVARY(S) INSERTION OF IUD 01/11/2014 IUD REMOVAL ([facility])_*FL 09/2017 LIGATE FALLOPIAN TUBE Tubal ligation FAMILY HISTORY Problem Relation Age of Onset Hypertension Maternal Grandmother Thyroid Mother Psychiatry Mother depression Hypertension Father Diabetes Father Cancer Father KIDNEY,lung Thyroid Father Heart Maternal Grandfather mi Heart Paternal Grandmother pacemaker Heart Paternal Grandfather mi ALLERGIES: ALLERGIES Allergen Reactions Voltaren [Diclofena* CURRENT OUTPATIENT MEDICATIONS: Current Outpatient Medications on File Prior to Visit Medication Sig meloxicam (MOBIC ORAL) Take by mouth.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 Records FoundNo Family History Records Found Advance Directives No Advanced Directives Records Found Advance Directive Response Recorded Date/ Time Do you have a Healthcare Power of Risk Consultant? No January 19, 2025 7:33am Reason for Referral Specialty Diagnoses / Procedures Referred By Alejandrina t Referred To Contact Sleep Lab Diagnoses Excessive daytime sleepiness Procedures Multiple sleep latency test Evelyn Tovar MD [address] [facility] [address], [facility] [address] [place] [address] Referral ID Status Reason Start Date Expiration Date V isits Requested Visits Authorized [id number] Pending Review 01/30/2024 01/29/2025 1 1 Specialty Diagnoses / Procedures Referred By Bjornac t Referred To Contact Sleep Lab Diagnoses Excessive daytime sleepiness Procedures In-Center Sleep Study (Non-Sleep Provider Only) Evelyn Tovar MD [address] [facility] [address], [address] [place] [address] Referral ID Status Reason Start Date Expiration Date V isits Requested Visits Authorized [id number] Pending Review 01/30/2024 01/29/2025 1 1 Chief Complaint and Reason for Visit Chief Complaint Admit Date wrist pain January 19, 2025 7:18a m Additional Source Comments INFORMATION SOURCE (unrecogn ized section and content) DATE CREATED AUTHOR 05/30/2018 [facility] DATE CREATED AUTHOR AUTHOR'S ORGANIZ ATION 04/25/2021 [facility] DATE CREATED AUTHOR AUTHOR'S ORGANIZ ATION 01/10/2023 [facility] DATE CREATED AUTHOR AUTHOR'S ORGANIZ ATION 02/02/2024 [facility] DATE CREATED AUTHOR AUTHOR'S ORGANIZ ATION 07/05/2024 [facility] DATE CREATED AUTHOR AUTHOR'S ORGANIZ ATION 07/11/2024 [facility] DATE CREATED AUTHOR AUTHOR'S ORGANIZ ATION 07/24/2024 [facility] DATE CREATED AUTHOR AUTHOR'S ORGANIZ ATION 07/27/2024 [facility] DATE CREATED AUTHOR AUTHOR'S ORGANIZ ATION 12/28/2024 [facility] DATE CREATED AUTHOR AUTHOR'S ORGANIZ ATION 01/30/2025 [facility] DATE CREATED AUTHOR AUTHOR'S ORGANIZ ATION 03/19/2025 [facility] DATE CREATED AUTHOR AUTHOR'S ORGANIZ ATION 05/13/2025 [facility] Reason for Visit (unrecogniz ed section and content) Specialty Diagnoses / Procedures Referred By Alejandrina spann Referred To Contact Gastroenterology Diagnoses Encounter for screening colonoscopy Ck Rai, ANKIT [address] [place] [address] Ines Nelson CNP [address] [place] [address] Referral ID Status Reason Start Date Expiration Date Visits Re quested Visits Authorized [id number] Closed 11/21/2023 11/20/2024 1 1 Reason Comments Excessive Daytime Sleepiness ESS is 20 Specialty Diagnoses / Procedures Referred By Alejandrina spann Referred To Contact Neurology Diagnoses Excessive sleepiness Evelyn Tovar MD [address] [place] [address] [address], [address] [place] [address] Evelyn Tovar MD [address] [facility] [address], [address] [place] [address] Referral ID Status Reason Start Date Expiration Date Visits Requested Visits Authorized [id number] Authorized Specialty Services Required 01/26/2024 01/25/2025 1 1 Reason Comments Consult Right breast mass Specialty Diagnoses / Procedures Referred By Alejandrina spann Referred To Contact General Surgery Diagnoses Mass of lower inner quadrant of right breast Ck Rai CNP [address] [place] [address] Phone: tel: fax: [facility] [address] [place] [address] Medical Office Building, [address]th [place] [address] Phone: tel: fax: Referral ID Status Reason Start Date Expiration Date Visits Re quested Visits Authorized [id number] Closed 07/08/2024 07/08/2025 1 1 Care Teams (unrecognized sec tion and content) Drapery Inspector Relationship Specialty Start Date End Date Ck Rai CNP [address] [place] [address] PCP - General Nurse Practitioner 11/21/23 Drapery Inspector Relationship Specialty Start Date End Date Ck Rai CNP [address] [place] [address] PCP - General Nurse Practitioner 11/21/23 Drapery Inspector Relationship Specialty Start Date End Date Ck Rai APRN-CNP [address] [place], [place] [id number] PCP - General 01/26/24 Drapery Inspector Relationship Specialty Start Date End Date Ck Rai APRN-CNP [address] [place], [place] [id number] PCP - General 01/26/24 Drapery Inspector Relationship Specialty Start Date End Date Ck Rai APRN-CNP [address] [place] [id number] PCP - General 01/26/24 Drapery Inspector Relationship Specialty Start Date End Date Ck Rai CNP [address] [place] [id number] PCP - General Nurse Practitioner 11/21/23 Drapery Inspector Relationship Specialty Start Date End Date Ck Rai CNP [address] [place] [id number] PCP - General Nurse Practitioner 11/21/23 Kristi Claudio, RN Patient Navigator Nursing 07/13/24 Drapery Inspector Relationship Specialty Start Date End Date Ck Rai CNP [address] [place] [address] PCP - General Nurse Practitioner 11/21/23 Drapery Inspector Relationship Specialty Start Date End Date Ck Rai CNP [address] [place] [address] PCP - General Nurse Practitioner 11/21/23 Team Status: Active Member Role/Relationship Status Dates Ck Rai ORTHOTIC/PROSTHETIC CLINICIAN-C Primary Care Provider Active Team Status: Inactive Member Role/Relationship Status Dates Ck Rai NP-C Primary Care Provider Active Start: January 19, 2025 End: January 19, 2025 Dr. Levy Allen , DO Emergency Provider Active Start: January 19, 2025 End: January 19, 2025 Drapery Inspector Relationship Specialty Start Date End Date Ck Rai CNP [address] [place] [id number] PCP - General Nurse Practitioner 11/21/23 01/25/25 Elisabeth Alicia, DATABASE MARKETING ANALYST [address] [place] [address] PCP - General Nurse Practitioner 01/26/25 Drapery Inspector Relationship Specialty Start Date End Date Ck Rai CNP [address] [place] [address] PCP - General Nurse Practitioner 11/21/23 01/25/25 Elisabeth Alicia CNP [address] [place] [address] PCP - General Nurse Practitioner 01/26/25 Drapery Inspector Relationship Specialty Start Date End Date Elisabeth Alicia CNP [address] [place] [address] PCP - General Nurse Practitioner 01/26/25 Drapery Inspector Relationship Specialty Start Date End Date Ck Rai CNP [address] [place] [address] PCP - General Family Medicine 02/24/25 Goals (unrecognized section and content) Goals may be documented in a n alternate section Source Comments (unrecognize d section and content) In the event this informatio n is protected by the Federal Confidentiality of Alcohol and Drug Abuse Patient Records regulations: The Federal rules restrict any use of the information to criminally investigate or prosecute any alcohol or drug abuse patient.[facility] FOR RECORDS PERTAINING TO PATIENTS WHO ARE [...] BE BASED ON THE PRIMARY CLINICAL RECORDS. [facility] [place]. provides no warranty or guarantee of the accuracy or completeness of information in this document.
[2025-06-20 21:53] LABS: Hematocrit 44.5 % (37-47); Hemoglobin 13.9 g/dL (12.0-15.0); Immature Granulocytes Count 0.080 X10^3/uL (0.0-0.0); Mean Corp Hgb Conc 31.2 g/dL (32-36); Mean Corpuscular Volume 89.2 fL (81-99); Mean Platelet Vol. 10.7 fl (6.2-12.0); NRBC Flagged by Analyzer 0 % (0-5); Platelet Count 357 K/mm3 (150-450); RBC Distribution Width CV 13.2 % (11.6-14.6); RBC Distribution Width SD 43.4 fl (35.1-43.9); Red Blood Count 4.99 M/mm3 (4.2-5.4); White Blood Count 9.0 K/mm3 (4.4-11.0)
[2025-06-20 22:00] VITALS: BP 128/87; PULSE 72; RESP 16; O2SAT 99
[2025-06-20 22:04] LABS: Anion Gap 13 (5-15); BUN 22 mg/dL (4-19); BUN/Creat Ratio 15.0 RATIO (10-20); CRP 10.50 mg/L (0.0-3.0); Calcium,Total 10.0 mg/dL (7.6-11.0); Carbon Dioxide 27.7 mmol/L (21.0-32.0); Chloride 102 mmol/L (98-108); Estimated Creatinine Clearance 48.63 ml/min (50-250); Glucose 103 mg/dL (70-99); Potassium 3.7 mmol/L (3.3-5.1)
[2025-06-20 22:14] LABS: Mucous, Urine 0 SEEN /hpf (<or=2+); Red Blood Cells-Urine 0 SEEN /hpf (0-5)
[2025-06-20 22:21] LABS: Color, Urine Yellow (Yellow); Glucose, Dipstick Normal (Normal); Ketone-Dipstick Negative (Negative); Leukocyte Esterase-Dipstick Negative /ul (Negative); Nitrite-Dipstick Negative (Negative); Occult Blood-Urine Negative /ul (Negative); Protein-Dipstick 15 mg/dl (Negative); Specific Gravity, Urine 1.025 (1.002-1.030); Urine Bilirubin Dipstick Negative (Negative)
[2025-06-20 23:00] VITALS: BP 128/77; PULSE 73; RESP 16; O2SAT 98
[2025-06-20 23:09] LABS: Squamous Epithelial Cells - UA 10-25 SEEN /hpf (5-10)
[2025-06-20 23:41] VITALS: BP 124/82; PULSE 73; RESP 16; TEMP 35.8; O2SAT 98
== END 2025-06-20 23:45 | disposition home or self-care (01) ==
PROVIDERS: Emergency Provider Emergency Medicine; PCP Internal Medicine; Visit Provider Emergency Medicine
DX: R51.9 Headache, unspecified (principal); E11.9 Type 2 diabetes mellitus without complications; E03.9 Hypothyroidism, unspecified; I10 Essential (primary) hypertension; Z87.891 Personal history of nicotine dependence; R00.2 Palpitations; Z90.710 Acquired absence of both cervix and uterus; Z96.659 Presence of unspecified artificial knee joint
CPT/HCPCS: 70450; 80048; 81001; 84443; 85025; 85652; 86140; 93005; 96374; 96375; 99285; A4216